=== PATIENT | male | born 1965 | race Caucasian/White ===

== ENCOUNTER → 2024-05-31 09:31 | Outpatient (BNVA) | payer OTHER, SELFPAY | PROVIDERS: Visit Provider Internal Medicine Cardiovascular Disease | DX: I25.10 Atherosclerotic heart disease of native coronary artery without angina pectoris (principal); I25.5 Ischemic cardiomyopathy; I44.5 Left posterior fascicular block; R94.31 Abnormal electrocardiogram [ECG] [EKG] | CPT/HCPCS: 93005; 99202 ==

== ENCOUNTER → 2024-06-14 10:33 | Outpatient (REF) | payer OTHER, SELFPAY ==
--- NOTE | 2024-06-14 10:36 | CA_ITS ---
Transthoracic Echocardiogram Amended Patient (Last, First, Middle): Mohsen Pearce, Gender: Male Date of : 1965 Age: 59 Procedure Date: 06/14/2024 Procedure Type: Transthoracic Echocardiogram Location: OP Height: 165. 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 The visually estimated ejection fraction is between 30-35%. - The apex, basal inferior, apical septum, mid inferoseptal, and mid anteroseptal segments are akinetic. ([place] possibly dyskinetic, difficult to visualize). - No obvious valvular pathology seen on this study. Findings Procedure Information Contrast agent, definity, is being given per protocol without apparent complications. Left Ventricle Normal left ventricular cavity size. The left ventricular systolic function is moderate to severely decreased. The visually estimated ejection fraction is between 30-35%. There is evidence of regional wall motion abnormalities. Evidence suggests grade I (mild) diastolic dysfunction. Mild focal hypertrophy of the basal septum. ([place] possibly dyskinetic, difficult to visualize). Wall Motion Rest Echo Findings The apex, basal inferior, apical septum, mid inferoseptal, and mid anteroseptal segments are akinetic. Right Ventricle Normal right ventricular cavity size. There is low normal right ventricular systolic function. Atria Both atria are normal in size. Aortic Valve There is mild calcification of the aortic valve. There is no aortic valve stenosis. There is no aortic valve regurgitation. Mitral Valve The mitral valve appears normal. There is no mitral valve regurgitation. There is no mitral valve stenosis. Pulmonic Valve The pulmonic valve is likely normal. Tricuspid Valve There is trace tricuspid valve regurgitation. There is no evidence of pulmonary hypertension. Great Vessels The asc aorta is normal in size. Venous The inferior vena cava is normal in size and collapses greater than 50% with inspiration. Pericardium/Pleural There is no evidence of pericardial effusion. Prior Study Comparison No prior study available for comparison. Recommendations, Care & Conclusions No obvious valvular pathology seen on this study. Measurements 2D Linear Measurements IVSd: 1.04 0.6-0.9/0.6-1.0 cm LVIDd: 5.22 3.9-5.3/4.2-5.9 cm LVIDd Index: 2.46 2.4-3.2/2.2-3.1 cm/m2 LVIDs: 2.83 2.0-3.6 cm LVPWd: 1.16 0.7-1.1 cm LA Diam: 3.70 2.7-3.8/3.0-4.0 cm LAIDs Index: 1.75 1.5-2.3 cm/m2 LV Mass: 276.93 67-162/88-224 g LV Mass Index: 130.63 43-95/49-115 g/m2 LVOT Diam: 1.90 3.0+(-)1.3 cm 2D Volumes LA Vol: 25.10 2D Systolic Function EF 4C: 35.60 >55% EF 2C: 36.60 >55% EF BiP: 37.20 >55% Mitral Valve MV Pk E: 0.72 MV PK A: 0.81 MV Decel Time: 250.00 E/A: 0.90 E'Lateral: 7.40 E'Medial: 4.57 E/E' Med: 15.80 E/E' Lat: 9.80 PHT: 73.00 MVA PHT: 3.01 Decel Dickens: 2.90 Aortic Valve AoV Pk Kailash: 1.07 AoV Mn Kailash: 0.82 AoV VTI: 0.21 AoV Pk Grad: 5.00 Aov Mn Grad: 3.00 [place] Cont.VTI: 2.24 LVOT LVOT Pk Kailash: 0.94 LVOT Mn Kailash: 0.63 LVOT VTI: 0.17 LVOT Pk Grad: 4.00 LVOT Mn Grad: 2.00 LVOT Diam: 1.90 LVOT Area: 2.84 Diastolic Function MV Pk E: 0.72 MV Pk A: 0.81 E/A: 0.90 E'Medial: 4.57 E/E' Med: 15.80 E' Laterial: 7.40 E/E' Lat: 9.80 Right Ventricle TAPSE (mm): 18.40 TVS' Kailash: 9.46 Tricuspid Valve TR Pk Kailash: 1.56 TR Pk Grad: 10.00 RA Press: 3.00 RVSP: 13.00 Great Vessels Aorta Sinus of Valsalva: 3.60 2.0-3.5 cm Ao Asc: 3.40 2.1-3.4 cm Pulmonary Valve PV Pk Kailash: 0.87 Peak PV Grad: 3.00 Updated in Other Vendor System with Status of Final Rao Hawkins MD electronically signed on 06/15/2024 11:28:50 AM with status of Final
--- OUTSIDE RECORDS SUMMARY | 2024-06-14 11:12 | XMS_ITS | Clinical Summary ---
Author Organization [facility] Address [address] [place] [address] Care Team Providers Care Retail Support Specialist Name Role Phone Eagle Aguirre PA-C Primary Care Provider Source Comments PLEASE NOTE, if this patient is a minor, it may be UNLAWFUL to discuss sensitive information that is contained in these records (such as FAMILY PLANNING, MENTAL HEALTH or SUBSTANCE ABUSE) with the minor patient's parent or other person without the patient's specific authorization.[facility] Allergies Active Allergy Reactions Criticality Noted Date Comments Levofloxacin Rash Medium 01/30/2021 Itchy rash (not hives) Sulfamethoxazole-Trimethopr im Nausea Only 10/02/2015 Medications PROAIR HFA 90 mcg/actuation inhalerIndication s:Mild intermittent asthma without complication Inhale 2 Puffs into the lungs every 4 to 6 (four to six) hours as needed for shortness of breath or wheezing 18 g 1 2 Active furosemide (LASIX) 40 mg tabletIndications :Heart failure with reduced ejection fraction (HCC-CMS) TAKE 1 TABLET(40 MG) BY MOUTH EVERY DAY 90 Tablet 3 3 Active sacubitriL-valsar licea (ENTRESTO) 49-51 mg tabIndications:He art failure with reduced ejection fraction (HCC-CMS) Take 1 Tablet by mouth daily. 60 Tablet 2 3 Active aspirin [address] tabletIndications :Essential hypertension Take 1 Tablet by mouth 1 time each day 90 Tablet 1 3 Active budesonide-formot Praneeth (SYMBICORT) 160-4.5 mcg/actuation inhalerIndication s:Mild intermittent asthma without complication Inhale 2 Puffs into the lungs 2 (two) times daily 10.2 g 5 3 Active pen needle, diabetic 29 gauge x 1/2 ndleIndications:U ncontrolled type 2 diabetes mellitus with hyperglycemia ([facility]) Use one pen needle daily for insulin injections. 100 Each 11 3 Active acetaminophen (TYLENOL 8 HOUR) 650 mg CR tablet Take 1 Tablet by mouth every 8 (eight) hours as needed for pain 60 Tablet 2 3 Active fluticasone (FLONASE) 50 mcg/actuation nasal sprayIndications: URI with cough and congestion INSTILL 2 SPRAYS BY NASAL ROUTE EVERY DA 16 g 2 3 Active loratadine (CLARITIN) 10 mg tabletIndications :Allergic rhinitis, unspecified seasonality, unspecified trigger Take 1 Tablet by mouth once daily as needed for allergies 90 Tablet 4 Active diphenhydrAMINE (BENADRYL) 50 mg capsuleIndication s:Allergic rhinitis, unspecified seasonality, unspecified trigger Take 1 Capsule by mouth nightly at bedtime as needed for allergies, rhinitis or sleep 90 Capsule 4 Active doxycycline (VIBRAMYCIN) 100 mg capsuleIndication s:Acute bacterial sinusitis Take 1 Capsule by mouth 2 (two) times daily 20 Capsule 4 Active carvediloL (COREG) 25 mg tabletIndications :Heart failure with reduced ejection fraction ([facility]-CMS) TAKE 1 TABLET BY MOUTH TWICE DAILY WITH MEALS 180 Tablet 3 4 Active JANUVIA 100 mg tabletIndications :Uncontrolled type 2 diabetes mellitus with hyperglycemia ([facility]) TAKE 1 TABLET BY MOUTH EVERY DAY 60 Tablet 1 4 Active fenofibrate micronized (LOFIBRA) 134 mg capsuleIndication s:Hypertriglyceri demia TAKE 1 CAPSULE BY MOUTH EVERY DAY WITH BREAKFAST 30 Capsule 3 4 Active atorvastatin (LIPITOR) 80 mg tabletIndications :Dyslipidemia TAKE 1 TABLET BY MOUTH EVERY DAY 30 Tablet 3 5 Active semaglutide (OZEMPIC) 0.25 mg or 0.5 mg (2 mg/3 mL) pen injectorIndicatio ns:Uncontrolled type 2 diabetes mellitus with hyperglycemia ([facility]-CMS) Inject 0.25 mg into the skin once a week 3 mL 5 Active dextromethorphan- guaifenesin (MUCINEX DM) 30-600 mg per 12 hr tabletIndications :PND (post-nasal drip) Take 1 Tablet by mouth 2 (two) times daily for 14 days 28 Tablet 4 025 Discontin ued(Thera py completed /Not needed) glipiZIDE (GLUCOTROL) 5 mg tabletIndications :Uncontrolled type 2 diabetes mellitus with hyperglycemia ([facility]) Take 1 Tablet by mouth 2 (two) times daily before a meal 180 Tablet 1 4 025 Discontin ued(Thera py completed /Not needed) Active Problems Problem Noted Date Diagnosed Date Mild intermittent asthma without complication Arthralgia 04/21/2021 Heart failure with reduced ejection fraction ([facility]) 04/21/2021 Overview (09/17/2021): [place] Card[facility] Dr Torres Hypertriglyceridemia 04/21/2021 S/P lobectomy of lung 04/21/2021 Interstitial lung disease ([facility]) 04/21/2021 Overview (04/21/2021): Based on previous chext x-rays done at [facility] Uncontrolled type 2 diabetes mellitus with hyperglycemia ([facility]) 04/21/2021 NSTEMI (non-ST elevated myocardial infarction) ( [facility]) 04/21/2021 Type 2 diabetes mellitus with microalbuminuria ( [facility]) 10/02/2015 Overview (12/22/2021): On Januvia . 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 Nephrolithiasis 10/02/2015 Overview (10/02/2015): Last episode ~2012, went to [facility] [place] Chronic pain of both shoulders 10/02/2015 Overview (10/02/2015): Pt says that he had calcium deposits. Was following at [facility]. Using Naproxen prn Allergic rhinitis 10/02/2015 Encounters Date Type Department Care Team Description 05/26/2024 9:00 AM EST Office Visit [facility] [id number] [place] [address] Eagle Aguirre PA-C Hypertriglyceridemia (Primary Dx); Uncontrolled type 2 diabetes mellitus with hyperglycemia (HCC-CMS); Immunization due from Last 3 Months Immunizations Name Administration Dates Next Due PNEUMOCOCCAL CONJUGATE PCV 20 (Prevnar) 05/26/19 25 TDAP 07/19/2015,07/19/2015 ZOSTER VACCINE, RECOMBINANT (SHINGRIX) 3,03/02/2022 Social History Tobacco Use Types Packs/Day Years Used Date Smoking Tobacco: Former Cigarettes Smokeless Tobacco: Never Tobacco Cessation:Counseling Given: No Comments:quit when he was 16yo Alcohol Use Standard Drinks/Week Comments No 0 (1 standard drink = 0.6 oz pur e alcohol) Social Connections Answer Date Recorded Connectedness 0 02/02/2023 Financial Resource Strain Answer Date R ecorded Financial Resource Strain 0 2022 Stress Answer Date Recorded Stress 0 02/02/2023 Physical Activity Answer Date Recorded Physical Activity 0 01/25/2021 Food Insecurity Answer Date Recorded Food 0 02/02/2023 Transportation Needs Answer Date Record ed Transportation 0 02/02/2023 Housing Stability Answer Date Recorded Housing 0 02/02/2023 Safety and Environment Answer Date Rajesh rded Safety 0 02/02/2023 Utilities Answer Date Recorded Utilities 0 02/02/2023 Employment Answer Date Recorded Employment 0 01/25/2021 Sex and Gender Information Value Date Recorded Sex Assigned at Male 01/25/2021 8:40 AM PDT Legal Sex Male 1:36 PM PST Gender Identity Male 01/25/2021 8:40 AM PDT Sexual Orientation Straight 01/25/2021 8: 40 AM PDT Last Filed Vital Signs Vital Sign Reading Time Taken Comments Blood Pressure 114/80 05/26/2024 9:02 AM EST Pulse 72 05/26/2024 9:02 AM EST Temperature 36.3 ??C (97.4 ??F) 05/26/2024 9:02 AM ES T Respiratory Rate 16 05/26/2024 9:02 AM EST Oxygen Saturation 97% 08/06/2023 4:31 PM EDT Inhaled Oxygen Concentration - - Weight 96.6 kg (213 lb) 05/26/2024 9:02 AM EST Height 160 cm (5' 3 ) 05/26/2024 9:02 AM EST Body Mass Index 37.73 05/26/2024 9:02 AM EST Plan of Treatment Upcoming Encounters Date Type Department Care Team (Late st Contact Info) Description 07/06/2024 3:20 PM EDT Office Visit [facility] [address] [place] [id number] Rajendra Eaton, PharmD [address] [place] [address] Health Maintenance Due Date Last Done Comments Dental Examination [address] CT Colonography 02/05/2009 Colonoscopy 02/05/2009 Fecal DNA 02/05/2009 Flexible Sigmoidoscopy 02/05/2009 Diabetes Microalbumin (w/Creatinine) 01/30/2022 01/30/2021 Medicare Annual Wellness Visit 03/02/2023 03/02/2022, 04/21/2021 Colorectal Cancer Screening 03/06/2023 FIT/gFOBT 03/06/2023 03/06/2022 [id number] ( season) 2023 08/14/2020, 07/22/2020 Imm-Influenza (#1) 2023 Alcohol and Drug Screen 04/26/2024 02/03/20 23, 06/05/2021, 04/21/2021, Additional history exists Depression Annual Screen 04/26/2024 02/02/2023 Diabetes HbA1c 06/28/2024 03/30/2024, 12/0 08/2023, 06/25/2023, Additional history exists Retinopathy Screening 07/29/2024 07/30/2023 Tobacco Screening 08/24/2024 08/25/2023, 03/02/2022 Lipid Screening 03/30/2025 03/30/2024, 01/24, 12/24/2021, Additional history exists Serum Creatinine 03/30/2025 03/30/2024, 02/2023, 12/24/2021, Additional history exists Imm-DTaP/Tdap/Td (3 - Td or Tdap) 07/18/2025 07/19/2015, 07/19/2015 Imm-Zoster, Recombinant Completed 07/23/2022, 03/02 Imm-Pneumococcal Completed 05/26/2024 Diabetes Foot Exam Discontinued HIV Screening Discontinued Hepatitis C Screening Discontinued Imm-Hepatitis B Aged Out No longer el igible based on patient's age to complete this topic Procedures Procedure Name Priority Date/Time Associated Diagnosis Comments REFERRAL SCANNED DOCUMENT 05/01/2024 3:00 AM EST EYE EXAM 07/30/2023 3:00 AM EDT HGBA1C W/MPG Routine 06/25/2023 2:14 PM EST Uncontrolled type 2 diabetes mellitus with hyperglycemia (HCC-CMS) COMPREHENSIVE METABOLIC PANEL Routine 02/03/2023 11:59 AM EDT Heart failure with reduced ejection fraction (HCC-CMS) Uncontrolled type 2 diabetes mellitus with hyperglycemia (HCC-CMS) Type 2 diabetes mellitus with microalbuminuria, unspecified whether terminal makeup operator insulin use Dyslipidemia Morbid obesity (HCC-CMS) Hypertriglyceridemia 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, without long-term current use of insulin LIPID PANEL Routine 02/03/2023 11:59 AM EDT Heart failure with reduced ejection fraction (HCC-CMS) Uncontrolled type 2 diabetes mellitus with hyperglycemia (HCC-CMS) Type 2 diabetes mellitus with microalbuminuria, unspecified whether fpc insulin use Dyslipidemia Morbid obesity (HCC-CMS) Hypertriglyceridemia 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, without long-term current use of insulin FECAL GLOBIN BY IMMUNOCHEMISTRY (FIT) Routine 03/06/2022 1:17 PM EST Encounter for colorectal cancer screening MICROALBUMIN/CREATININE RATIO, URINE, RANDOM Routine 01/30/2021 11:22 AM EDT Type 2 diabetes mellitus with microalbuminuria, without long-term current use of insulin ([facility]) from Last 3 Months or Most Recently Relevant to Health Maintenance Results * REFERRAL SCANNED DOCUMENT (05/01/2024 3:00 AM EST) 05/01/2024 3:00 AM EST [facility] Provider Default SCAN REFERRAL Final Resu lt * EYE EXAM (07/30/2023 3:00 AM EDT) 07/30/2023 3:00 AM EDT Greer Enriquez [employer] INSTALLER OTHER Final Result * (ABNORMAL) LIPID PANEL (02/03/2023 11:59 AM EDT) Pathologist [facility] CHOLESTEROL, TOTAL 186 <200 mg/dL [employer] HDL CHOLESTEROL 31(L) > OR = 40 mg/dL [employer] TRIGLYCERIDES 429(H) <150 mg/dL [employer] Comment: If a non-fasting specimen was collected, consider repeat triglyceride testing on a fasting specimen if clinically indicated. Rachel et al. J. of Clin. Lipidol. 2015;9:129-169. LDL-CHOLESTEROL See Note [email or web address] Comment: LDL cholesterol not calculated. Triglyceride levels greater than 400 mg/dL invalidate calculated LDL results. Reference range: <100 Desirable range <100 mg/dL for primary prevention; ?? <70 mg/dL for patients with CHD or diabetic patients with > or = 2 CHD risk factors. LDL-C is now calculated using the Frank calculation, which is a validated novel method providing better accuracy than the Friedewald equation in the estimation of LDL-C. Nelson JACINTO et al. LIZET. 2013;310(19): 6311-4369 (http://education.[employer]/faq/UQE821) CHOL/HDLC RATIO 6.0(H) <5.0 (calc) [employer] NON-HDL CHOLESTEROL 155(H) <130 mg/dL (calc) [employer] Comment: For patients with diabetes plus 1 major ASCVD risk factor, treating to a non-HDL-C goal of <100 mg/dL (LDL-C of <70 mg/dL) is considered a therapeutic option. Blood Blood / Unknown 02/03/2023 1 1:59 AM EDT 02/03/2023 11:59 AM EDT [facility] - BLOOD DRAW Final Result [employer] [address] [address], [employer] [facility] [address] [place] [address] * (ABNORMAL) COMPREHENSIVE METABOLIC PANEL (02/03/2023 11:59 AM EDT) GLUCOSE 383(H) 65 - 99 mg/dL [employer] Comment: ?Fasting reference interval For someone without known diabetes, a glucose value >125 mg/dL indicates that they may have diabetes and this should be confirmed with a follow-up test. UREA NITROGEN (BUN) 20 7 - 25 mg/dL [employer] CREATININE (blood) 1.30 0.70 - 1.30 mg/dL [employer] EGFR 64 > OR = 60 mL/min/1. 73m2 [employer] BUN/CREATININE RATIO SEE NOTE: [employer] Comment: ?? Not Reported: BUN and Creatinine are within ?? reference range. ? SODIUM 133(L) 135 - 146 mmol/L [employer] POTASSIUM 4.5 3.5 - 5.3 mmol/L [employer] CHLORIDE 97(L) 98 - 110 mmol/L [employer] CARBON DIOXIDE 26 20 - 32 mmol/L [employer] CALCIUM 8.9 8.6 - 10.3 mg/dL [employer] PROTEIN, TOTAL 6.9 6.1 - 8.1 g/dL [employer] ALBUMIN 4.0 3.6 - 5.1 g/dL [employer] GLOBULIN 2.9 1.9 - 3.7 g/dL (calc) [employer] ALBUMIN/GLOBULI N RATIO 1.4 1.0 - 2.5 (calc) [facility] BILIRUBIN, TOTAL 0.8 0.2 - 1.2 mg/dL [facility] ALKALINE PHOSPHATASE 50 35 - 144 U/L [facility] AST 16 10 - 35 U/L [facility] ALT 25 9 - 46 U/L [facility] Blood Blood / Unknown 02/03/2023 1 1:59 AM EDT 02/03/2023 11:59 AM EDT [facility] - BLOOD DRAW Edited Result - Final Performing Organization Address [facility] de Phone Number [employer] [facility] [address] [address], [employer] [address] [address] * FECAL GLOBIN BY IMMUNOCHEMISTRY (FIT) (03/06/2022 1:17 PM EST) FECAL GLOBIN BY IMMUNOCHEMISTRY See Note [employer] [facility] Comment: ??FECAL GLOBIN BY IMMUNOCHEMISTRY ?Micro Number: ?[id number] ??Test Status: ? Final ??Specimen Source: ?? Insure (tm) fobt test card ??Specimen Quality: ??Adequate ??Fecal Globin: ?Not Detected ??Comment: ? Test results may be invalid as no date of ? collection was provided. Specimens are stable ? for 14 days. NO COLLECTION DATE RECEIVED. WE HAVE USED THE DATE THE SPECIMEN WAS RECEIVED BY THIS LABORATORY THE COLLECTION DATE. IF THIS IS INCORRECT, PLEASE CONTACT CLIENT SERVICES. PHONE NUMBER: Stool Stool specimen / Unknown 03/05/2022 11:56 PM EST us [facility] - NO BLOOD DRAW Final Resu lt Performing Organization Address [facility] Co de Phone Number [employer] [address] [address], [email or web address] [facility] [address] [address] * MICROALBUMIN/CREATININE RATIO, URINE, RANDOM (01/30/2021 11:22 AM EDT) CREATININE, RANDOM URINE 91 20 - 320 mg/dL [employer] MICROALBUMIN 2.5 mg/dL [employer] [facility] Comment: Reference Range Not established MICROALBUMIN/CREA TININE RATIO, RANDOM URINE 27 <30 mcg/mg creat [employer] [facility] Comment: The ADA defines abnormalities in albumin excretion as follows: Albuminuria Category ?Result (mcg/mg creatinine) Normal to Mildly increased ?? <30 Moderately increased ? 30-299 Severely increased ? > OR = 300 The ADA recommends that at least two of three specimens collected within a 3-6 month period be abnormal before considering a patient to be within a diagnostic category. Urine Urine specimen / Unknown 01/30/2021 11:22 AM EDT 01/30/2021 11:22 AM EDT Greer Enriquez [facility] - NO BLOOD DRAW Final Result [employer] [address] [address], [email or web address] [facility] [address] [address] from Last 3 Months or Most Recently Relevant to Health Maintenance Insurance [employer] NET DENTAL Member Subscriber Plan / Payer (Ef fective 2023-Present) Name:Mohsen Pearce Relation to Subscriber:Self Name:Mohsen Pearce Payer ID:[id number] Group ID:Not on file Type:Indemnifrancis Address: [facility] [address] [address] Care Teams Retail Support Specialist Relationship Specialty Start Date End Date Eagle Aguirre PA-C [address] [place] [address] PCP - General FAMILY MEDICINE [place] 03/31/24
--- OUTSIDE RECORDS SUMMARY | 2024-06-14 11:12 | XMS_ITS | Clinical Summary ---
Author Organization [address] Address [address] [place] [address] Phone Care Team Providers Care Spike Maker Name Role Phone Shilo Vasquez MD Primary Care Provider [phone] Surgical History Surgery Date Site/Laterality Comments OTHER SURGICAL HISTORY 1985 PROCEDURE: ID BRONCHOSCOPY W/TRANSBRONCHIAL LUNG BX 1 LOBE; COMMENT: granuloma Medical History Medical History Date Comments Chronic interstitial lung di sease ([facility]) DX:Chronic interstitial lung disease ([facility]); COMMENT: Heart failure w/ reduced EF. Joint pain DX:Joint pain S/P partial lobectomy of lung DX :S/P partial lobectomy of lung; COMMENT: partial left Obesity DX:Obesity Bronchitis DX:Bronchitis Essential hypertension DX:Essent ial hypertension Hyperlipidemia DX:Hyperlipidemi a Family history of cardiovasc ular disease DX:Family history of cardiov ascular disease Type 2 diabetes mellitus wit hout complication ([facility]) 09/30/2020 DX:Type 2 diabetes mellitus without complication ([facility]) Carotid artery occlusion 01/03/2021 DX:Breaux tid artery occlusion; COMMENT: Chronic, R carotid. ST elevation myocardial infa rction involving left anterior descending (LAD) coronary artery ([facility]) 09/30/2020 DX:ST elevation myocar dial infarction involving left anterior descending (LAD) coronary artery ([facility]) Family History Medical History Relation Name Comments Coronary artery disease Father Heart failure Father COPD Mother Other: copd Mother Relation Name Status Comments Brother 1 Alive A&W Brother 2 Alive A&W Daughter 1 Alive A&W Daughter 2 Alive A&W Daughter 3 Alive A&w Daughter 4 Alive A&W Daughter 5 Alive A&W Father (Age 56) Maternal Grandfather Maternal Grandmother Mother (Age 65) COPD Paternal Grandfather Paternal Grandmother Sister 1 Alive A&W Sister 2 Alive A&W Social History Tobacco Use Types Packs/Day Years Used Date Smoking Tobacco: Former Cigarettes Q uit: 04/25/1983 Smokeless Tobacco: Never Alcohol Use Standard Drinks/Week Comments Not Currently 0 (1 standard drink = 0.6 oz pur e alcohol) Sex and Gender Information Value Date Recorded Sex Assigned at Not on file Legal Sex Male 3:21 PM EST Gender Identity Not on file Sexual Orientation Not on file Obstetrics History Last Filed Vital Signs Vital Sign Reading Time Taken Comments Blood Pressure 104/78 12/09/2021 1:00 PM EDT Sit ting L Arm Pulse 95 11/03/2021 8:33 AM EDT Temperature - - Respiratory Rate - - Oxygen Saturation - - Inhaled Oxygen Concentration - - Weight 101 kg (222 lb) 12/09/2021 1:00 PM EDT Height 162.6 cm (5' 4 ) 12/09/2021 1:00 PM EDT Body Mass Index 38.11 12/09/2021 1:00 PM EDT Plan of Treatment Health Maintenance Due Date Last Done Comments Diabetes: Annual Foot Exam 02/05/1974 Diabetes: Annual Retina Eye Exam 02/05/1974 Pneumococcal Vaccine: 50+ Years (1 of 2 - PCV) 02/05/1983 Pneumococcal Vaccine: Pediatrics (0 to 5 Years) and At-Risk Patients (6 to 64 Years) (1 of 2 - PCV) 02/05/1983 HIV Screening 04/04/2022 Hepatitis C Screening 04/04/2022 Social Influencers of Health Screening 04/04/2022 Colorectal Cancer Screening: Stool Based Tests (FOBT/FIT) 03/06/2023 03/06/2022 COVID-19 Vaccine ( season) 2023 08/14/2020, 07/22/2020 Influenza Vaccine (#1) 2023 Depression Screening 02/03/2024 02/02/2023 RSV Immunization Patients 60+ Years Old (1 - Risk 60-74 years 1-dose series) 2024 Diabetes: Blood Sugar Control Test (HGBA1C) 09/28/2024 03/30/2024, 06/25/2023 Diabetes: Annual Urine Albumin-Creatinine Ratio (uACR) 03/30/2025 03/30/2024, 01/30/2021 Diabetes: Annual GFR (Glomerular Filtration Rate) 03/30/2025 03/30/2024, 02/03/2023 Hypertension/CHF/CAD Annual BMP Blood Test 03/30/2025 03/30/2024, 02/03/2023 DTaP,Tdap,and Td Vaccines (2 - Td or Tdap) 07/18/2025 07/19/2015 Cholesterol Screening (Lipid Panel) 03/30/2029 03/30/2024, 02/03/2023, 02/03/2023, Additional history exists Zoster Vaccines Completed 07/23/2022, 03/02/2022 HIB Vaccines Aged Out No longer eligi ble based on patient's age to complete this topic HPV Vaccines Aged Out No longer eligi ble based on patient's age to complete this topic Hepatitis A Vaccines Aged Out No long er eligible based on patient's age to complete this topic Hepatitis B Vaccines Aged Out No long er eligible based on patient's age to complete this topic IPV Vaccines Aged Out No longer eligi ble based on patient's age to complete this topic MMR Vaccines Aged Out No longer eligi ble based on patient's age to complete this topic Meningococcal ACWY Vaccine Aged Out N o longer eligible based on patient's age to complete this topic Meningococcal B Vacine Aged Out No lo nger eligible based on patient's age to complete this topic RSV Immunization Patients Under 20 months Aged Out No longer eligible based on patient's age to complete this topic Varicella Vaccines Aged Out No longer eligible based on patient's age to complete this topic Procedures Procedure Name Priority Date/Time Associated Diagnosis Comments MICROALBUMIN CREATININE URINE RATIO Routine 03/30/2024 11:11 AM EST Hyperlipidemia Essential hypertension, benign Coronary atherosclerosis of [place] coronary artery Heart failure, systolic ([facility]) Referral of patient without examination or treatment CBC WITH AUTO DIFFERENTIAL Routine 03/30/2024 11:05 AM EST Hyperlipidemia Essential hypertension, benign Coronary atherosclerosis of [place] coronary artery Heart failure, systolic ([facility]) Referral of patient without examination or treatment THYROID STIMULATING HORMONE WITH REFLEX TO FREE T4 AND FREE T3 Routine 03/30/2024 11:05 AM EST Hyperlipidemia Essential hypertension, benign Coronary atherosclerosis of [place] coronary artery Heart failure, systolic ([facility]) Referral of patient without examination or treatment LIPID PANEL WITH REFLEX TO DIRECT LDL Routine 03/30/2024 11:05 AM EST Hyperlipidemia Essential hypertension, benign Coronary atherosclerosis of [place] coronary artery Heart failure, systolic (CMS/HCC) Referral of patient without examination or treatment HEMOGLOBIN A1C Routine 03/30/2024 11:05 AM EST Hyperlipidemia Essential hypertension, benign Coronary atherosclerosis of [place] coronary artery Heart failure, systolic (CMS/HCC) Referral of patient without examination or treatment COMPREHENSIVE METABOLIC PANEL Routine 03/30/2024 11:05 AM EST Hyperlipidemia Essential hypertension, benign Coronary atherosclerosis of [place] coronary artery Heart failure, systolic (CMS/HCC) Referral of patient without examination or treatment CBC AND DIFFERENTIAL Routine 03/30/2024 11:05 AM EST Hyperlipidemia Essential hypertension, benign Coronary atherosclerosis of [place] coronary artery Heart failure, systolic (CMS/HCC) Referral of patient without examination or treatment from Last 3 Months Results * (ABNORMAL) Microalbumin creatinine urine ratio (03/30/2024 11:11 AM EST) Creatinine, Urine 55.0 mg/dL LAB CHEMISTRY METHOD 03/30/2024 12:19 PM EST [facility] Microalb, Ur 21.5 0.0 - 29.0 mg/L LAB CHEMISTRY METHOD 03/30/2024 12:19 PM EST [facility] Microalb/Creat Ratio 39(H) <30 mg/g creat LAB CHEMISTRY METHOD 03/30/2024 12:19 PM EST [facility] Urine Urine specimen obtained by clean catch procedure / Unknown Non-blood Collection / Unknown 03/30/2024 11:11 AM EST 03/30/2024 11:19 AM EST us Susan Mejia NP LAB URINE ORDERABLE S Final Result [facility] [address] [place] [address], [place] [phone] * Thyroid stimulating hormone with reflex to free t4 and free t3 (03/30/2024 11:05 AM EST) TSH 1.27 0.40 - 4.00 mcIU/mL LAB CHEMISTRY METHOD 03/30/2024 12:20 PM [facility] Blood Venous blood specimen / Unknown Venipuncture / Unknown 03/30/2024 11:05 AM EST 03/30/2024 11:20 AM EST us Susan Mejia [employer]KE [employer] NOTCHER LAB BLOOD ORDERABLE S Final Result [facility] [address] [place] [address], [place] [phone] * (ABNORMAL) Lipid panel with reflex to direct LDL (03/30/2024 11:05 AM EST) Cholesterol 196 0 - 200 mg/dL LAB CHEMISTRY METHOD 03/30/2024 12:12 PM [facility] Triglycerides 435(H) 0 - 150 mg/dL LAB CHEMISTRY METHOD 03/30/2024 12:12 PM [facility] HDL 33(L) >=40 mg/dL LAB CHEMISTRY METHOD 03/30/2024 12:12 PM [facility] LDL Calculated 76 0 - 100 mg/dL LAB CHEMISTRY METHOD 03/30/2024 12:12 PM [facility] Comment:Unable to calculate when triglycerides >400 mg/dL. VLDL Cholesterol Norbert 87 mg/dL LAB CHEMISTRY METHOD 03/30/2024 12:12 PM [facility] Comment:Unable to calculate when triglycerides >400 mg/dL. Non HDL Chol. (LDL+VLDL) 163(H) <145 mg/dL LAB CHEMISTRY METHOD 03/30/2024 12:12 PM [facility] Comment:Unable to calculate when triglycerides >400 mg/dL. Chol/HDL Ratio 5.9(H) 0.0 - 4.4 LAB CHEMISTRY METHOD 03/30/2024 12:12 PM EST [facility] Blood Venous blood specimen / Unknown Venipuncture / Unknown 03/30/2024 11:05 AM EST 03/30/2024 11:20 AM EST us Susan Mejia [employer] NOT[employer]ER LAB BLOOD ORDERABLE S Final Result [facility] [address] [place] [address], [place] [phone] * (ABNORMAL) CBC auto differential (03/30/2024 11:05 AM EST) WBC 7.6 4.8 - 10.8 K/mcL LAB HEMETOLOGY METHOD 03/30/2024 11:42 AM [facility] RBC 6.00(H) 4.50 - 5.50 M/mcL LAB HEMETOLOGY METHOD 03/30/2024 11:42 AM [facility] Hemoglobin 17.5 13.5 - 17.5 g/dL LAB HEMETOLOGY METHOD 03/30/2024 11:42 AM [facility] Hematocrit 51.2 42.0 - 54.0 % LAB HEMETOLOGY METHOD 03/30/2024 11:42 AM [facility] MCV 86.1 79.0 - 98.0 FL LAB HEMETOLOGY METHOD 03/30/2024 11:42 AM [facility] MCH 29.4 27.0 - 32.0 pcg LAB HEMETOLOGY METHOD 03/30/2024 11:42 AM [facility] MCHC 34.2 32.0 - 37.0 g/dL LAB HEMETOLOGY METHOD 03/30/2024 11:42 AM [facility] RDW 11.4 11.0 - 15.0 % LAB HEMETOLOGY METHOD 03/30/2024 11:42 AM [facility] Platelets 154 130 - 400 K/mcL LAB HEMETOLOGY METHOD 03/30/2024 11:42 AM [facility] MPV 11.1(H) 7.0 - 11.0 FL LAB HEMETOLOGY METHOD 03/30/2024 11:42 AM [facility] NRBC 0.0 <1.0 % LAB HEMETOLOGY METHOD 03/30/2024 11:42 AM [facility] NRBC Absolute 0.00 <0.10 K/mcL LAB HEMETOLOGY METHOD 03/30/2024 11:42 AM [facility] Neutrophils Relative 67.2 % LAB HEMETOLOGY METHOD 03/30/2024 11:42 AM [facility] Lymphocytes Relative 20.9 % LAB HEMETOLOGY METHOD 03/30/2024 11:42 AM [facility] Monocytes Relative 9.9 % LAB HEMETOLOGY METHOD 03/30/2024 11:42 AM [facility] Eosinophils Relative 1.2 % LAB HEMETOLOGY METHOD 03/30/2024 11:42 AM [facility] Basophils Relative 0.4 % LAB HEMETOLOGY METHOD 03/30/2024 11:42 AM [facility] Immature Granulocytes Relative 0.4 % LAB HEMETOLOGY METHOD 03/30/2024 11:42 AM [facility] Neutrophils Absolute 5.08 1.50 - 7.00 K/mcL LAB HEMETOLOGY METHOD 03/30/2024 11:42 AM [facility] Lymphocytes Absolute 1.58 1.00 - 5.00 K/mcL LAB HEMETOLOGY METHOD 03/30/2024 11:42 AM [facility] Monocytes Absolute 0.75 0.20 - 1.00 K/mcL LAB HEMETOLOGY METHOD 03/30/2024 11:42 AM [facility] Eosinophils Absolute 0.09 0.00 - 0.50 K/[facility] LAB HEMETOLOGY METHOD 03/30/2024 11:42 AM EST [facility] Basophils Absolute 0.03 0.00 - 0.20 K/[facility] LAB HEMETOLOGY METHOD 03/30/2024 11:42 AM EST [facility] Immature Granulocytes Absolute 0.03 0.00 - 0.03 K/[facility] HEMETOLOGY METHOD 03/30/2024 11:42 AM EST [facility] Blood Venous blood specimen / Unknown Venipuncture / Unknown 03/30/2024 11:05 AM EST 03/30/2024 11:20 AM EST us Susan Mejia [employer] LAB BLOOD ORDERABLE S Final Result Performing Organization Address City/[facility]/ZIP Co de Phone Number [facility] [address] [place] [address], [place] [phone] * (ABNORMAL) Hemoglobin A1c (03/30/2024 11:05 AM EST) Hemoglobin A1C 10.1(H) <6.5 % LAB CHEMISTRY METHOD 03/30/2024 1:54 PM EST [facility] Mean Bld Glu Estim. 243 mg/dL LAB CHEMISTRY METHOD 03/30/2024 1:54 PM EST [facility] Blood Venous blood specimen / Unknown Venipuncture / Unknown 03/30/2024 11:05 AM EST 03/30/2024 11:20 AM EST us Susan Mejia [employer] LAB BLOOD ORDERABLE S Final Result [facility] [address] [place] [address], [place] [phone] * (ABNORMAL) Comprehensive metabolic panel (03/30/2024 11:05 AM EST) Sodium 135 133 - 145 mmol/L LAB CHEMISTRY METHOD 03/30/2024 12:12 PM [facility] Potassium 4.2 3.5 - 5.5 mmol/L LAB CHEMISTRY METHOD 03/30/2024 12:12 PM [facility] Chloride 103 96 - 110 mmol/L LAB CHEMISTRY METHOD 03/30/2024 12:12 PM [facility] CO2 27 21 - 32 mmol/L LAB CHEMISTRY METHOD 03/30/2024 12:12 PM [facility] Anion Gap 5 3 - 11 LAB CHEMISTRY METHOD 03/30/2024 12:12 PM [facility] Glucose 361(H) 70 - 100 mg/dL LAB CHEMISTRY METHOD 03/30/2024 12:12 PM [facility] BUN 18 5 - 25 mg/dL LAB CHEMISTRY METHOD 03/30/2024 12:12 PM [facility] Creatinine 1.13 0.70 - 1.30 mg/dL LAB CHEMISTRY METHOD 03/30/2024 12:12 PM [facility] eGFR 74 >=60 mL/min/1. 73m2 LAB CHEMISTRY METHOD 03/30/2024 12:12 PM [facility] Comment:Calculation based on the??Chronic Kidney Disease Epidemiology Collaboration (CKD-EPI) equation refit??without adjustment for race. BUN/Creatinine Ratio 15.9 LAB CHEMISTRY METHOD 03/30/2024 12:12 PM [facility] Calcium 9.2 8.5 - 10.5 mg/dL LAB CHEMISTRY METHOD 03/30/2024 12:12 PM [facility] AST (SGOT) 22 10 - 42 unit/L LAB CHEMISTRY METHOD 03/30/2024 12:12 PM [facility] ALT (SGPT) 49 10 - 60 unit/L LAB CHEMISTRY METHOD 03/30/2024 12:12 PM [facility] Alkaline Phosphatase 69 42 - 121 unit/L LAB CHEMISTRY METHOD 03/30/2024 12:12 PM EST [facility] Total Protein 7.2 6.0 - 8.0 g/dL LAB CHEMISTRY METHOD 03/30/2024 12:12 PM EST [facility] Albumin 3.9 3.2 - 5.0 g/dL LAB CHEMISTRY METHOD 03/30/2024 12:12 PM EST [facility] Total Bilirubin 0.8 0.0 - 1.4 mg/dL LAB CHEMISTRY METHOD 03/30/2024 12:12 PM EST [facility] Blood Venous blood specimen / Unknown Venipuncture / Unknown 03/30/2024 11:05 AM EST 03/30/2024 11:20 AM EST us Susan Mejia [employer] LAB BLOOD ORDERABLE S Final Result [facility] [address] [place] [address], [place] [phone] from Last 3 Months Insurance Member Subscriber Plan / Payer (Ef fective 2023-Present) Name:Mohsen Pearce Relation to Subscriber:Spouse Name:MOHSEN PEARCE Date of :1964 Address: [address] [place] [address] Payer ID:[id number] Group ID:[id number] Type:Not on file Address: [place] [address] [place] [phone] [facility] MEDICARE Member Subscriber Plan / Payer (Ef fective 2023-Present) Name:Mohsen Pearce Relation to Subscriber:Self Name:Mohsen Pearce Payer ID:[id number] Group ID:[id number] Type:Not on file Address: [address] [place] [id number] Care Teams Spike Maker Relationship Specialty Start Date End Date Shilo Vasquez MD [address] [place] [address] PCP - General Internal Medicine 08/24/21
--- OUTSIDE RECORDS SUMMARY | 2024-06-14 11:12 | XMS_ITS | Encounter Summary ---
Author Organization [facility] Address [address] [place] [address] Care Team Providers Care Train Starter Name Role Phone Eagle Aguirre PA-C Primary Care Provider + [phone] Reason for Referral * Diabetes (Routine) - Authorized Specialty Diagnoses / Procedures Referred By Erica armenta Referred To Contact Clinical Pharmacology / Family Practice Diagnoses Uncontrolled type 2 diabetes mellitus with hyperglycemia ([facility] Eagle Aguirre PA-C [address] [place] [address] Phone: tel: fax: Rajendra Eaton, PharmD [address] [place] [address] Phone: tel: fax: Referral ID Status Reason Start Date Expiration Date Visits Requested Visits Authorized [id number] Authorized Continuity of Care 05/26/2024 05/26/2025 20 20 Question Answer Insulin Dependent? No Comments Doesn't want to take metformin or glipizide. Does take januvia. Reason for Visit * Reason Comments Follow Up No concern Encounter Details Date Type Department Care Team (Latest Contact Info) Description 05/26/2024 9:00 AM EST Office Visit [facility] [address] [place] [address] Eagle Aguirre PA-C [address] [place] [address] Hypertriglyceridemia (Primary Dx); Uncontrolled type 2 diabetes mellitus with hyperglycemia (HCC-CMS); Immunization due Social History Tobacco Use Types Packs/Day Years [...] Orientation Straight 01/25/2021 8: 40 AM PDT documented as of this encounter Last Filed Vital Signs Vital Sign Reading Time Taken Comments Blood Pressure 114/80 05/26/2024 9:02 AM EST Pulse 72 05/26/2024 9:02 AM EST Temperature 36.3 ??C (97.4 ??F) 05/26/2024 9:02 AM ES T Respiratory Rate 16 05/26/2024 9:02 AM EST Oxygen Saturation - - Inhaled Oxygen Concentration - - Weight 96.6 kg (213 lb) 05/26/2024 9:02 AM EST Height 160 cm (5' 3 ) 05/26/2024 9:02 AM EST Body Mass Index 37.73 05/26/2024 9:02 AM EST documented in this encounter Miscellaneous Notes * Patient Instructions - Eagle Aguirre PA-C - 05/26/2024 9:47 AM EST If you are not able to keep your appointment please call 24-48 hours before your appointment to cancel or reschedule. documented in this encounter Plan of Treatment Upcoming Encounters Date Type Department Care Team (Late st Contact Info) Description 07/06/2024 3:20 PM EDT Office Visit [facility] [address] [place] [address] Rajendra Eaton, ClementinaD [address] [place] [address] Scheduled Referrals Name Type Priority Associated Diagnoses Orde r Schedule REFERRAL TO [facility]ETES CLINIC Referral Routine Uncontrolled type 2 diabetes mellitus with hyperglycemia (HCC-CMS) Ordered: 05/26/2024 documented as of this encounter Visit Diagnoses Diagnosis Hypertriglyceridemia- Primary Pure hyperglyceridemia Uncontrolled type 2 diabetes mellitus with hyperglycemia (HCC-CMS) Immunization due Need for prophylactic vaccination and inoculation against unspecified single disease documented in this encounter Additional Health Concerns Assessment Noted Time PHQ-9 Depression Total Score: 0 02/03/20 23 5:02 PM PDT documented as of this encounter Care Teams Train Starter Relationship Specialty Start Date End Date Eagle Aguirre PA-C [address] [place] [address] PCP - General FAMILY MEDICINEJAMES 03/31/24 documented as of this encounter
== END ==
LOC: HO.CARD 10:33
PROVIDERS: Visit Provider Internal Medicine Cardiovascular Disease
DX: I25.5 Ischemic cardiomyopathy (principal)
CPT/HCPCS: 93306; Q9957

== ENCOUNTER → 2024-06-14 10:36 | Outpatient (BNV) | payer OTHER, SELFPAY | PROVIDERS: Visit Provider Internal Medicine | DX: I42.2 Other hypertrophic cardiomyopathy (principal); I35.8 Other nonrheumatic aortic valve disorders | CPT/HCPCS: 93306 ==

== ENCOUNTER 2024-06-19 19:31 | Emergency (ER) | payer OTHER, SELFPAY ==
--- NOTE | ~2024-06-19 | XR_ITS ---
CLINICAL HISTORY: cough, fever 2 view chest x-ray Comparison: None available Findings: Bilateral pulmonary opacities with airspace disease most pronounced in the right infrahilar region concerning for pneumonitis/pneumonia. No pneumothorax or pleural effusion. Cardiac silhouette and mediastinal contours are at the upper limits of normal for technique. Degenerative changes include imaged shoulders and AC joints. Likely calcific tendinitis adjacent to right humerus. IMPRESSION: Airspace disease most pronounced in the right infrahilar region concerning for pneumonitis and/or pneumonia. Recommend attention on follow-up to ensure resolution. This document has been electronically signed by: Henry Gupta MD on 06/19/2024 21:09:25
[2024-06-19 20:28] VITALS: BP 127/83; PULSE 102; RESP 20; TEMP 37.4; O2SAT 96; BMI 34.4
--- NOTE | 2024-06-19 20:30 | ED.GENADULT ---
HPI - General Adult General Chief complaint: Dyspnea Stated complaint: ?bronchitis Time Seen by Provider: 06/20/24 00:24 Source: patient Limitations: no limitations History of Present Illness ED Provider: Sahara Sexton PA-C HPI narrative: 59-year-old male with a history of hypertension, hyperlipidemia, diabetes, coronary artery disease, ischemic cardiomyopathy, presents with cough and cold symptoms x1 week. Associated nasal congestion with facial pain, expelling blood-tinged mucus. Patient also complains of sore throat secondary to his postnasal drip. Patient was experiencing fullness within both ears with the ringing at times. Patient was also had a persisting dry cough. Associated low-grade fevers at home. Patient saw his primary care, and was placed on 3 days' worth of azithromycin . Related Data Home Medications ?Medication ?Instructions ?Recorded ?Confirmed atorvastatin 80 mg tablet 80 mg PO DAILY 05/31/24 05/31/24 carvedilol 25 mg tablet 25 mg PO BID 05/31/24 05/31/24 fluticasone propionate 50 1 spray intranasal DAILY 05/31/24 05/31/24 mcg/actuation nasal spray,suspension ipratropium bromide 21 mcg (0.03 2 spray intranasal BID 05/31/24 05/31/24 %) nasal spray sacubitril 49 mg-valsartan 51 mg 1 tab PO BID 05/31/24 05/31/24 tablet (Entresto) sitagliptin phosphate 100 mg 100 mg PO DAILY 05/31/24 05/31/24 tablet (Januvia) Previous Rx's ?Medication ?Instructions ?Recorded icosapent ethyl 1 gram capsule 2 g (2 x 1 gram) PO BID #120 caps 05/31/24 (Vascepa) amoxicillin 875 mg-potassium 1 tab PO BID #19 tabs 06/20/24 clavulanate 125 mg tablet doxycycline hyclate 100 mg capsule 100 mg PO BID #19 caps 06/20/24 Allergies Allergy/AdvReac Type Severity Reaction Status Date / Time levaquin Allergy Severe rash Uncoded 06/19/24 20:30 Review of Systems Review of Systems: Yes all other systems are reviewed and are negative Constitutional: Constitutional: Denies fatigue, Reports fever(s) and Reports malaise ENT: Reports nasal congestion, Reports post nasal drip, Reports sinus pain and Reports sore throat Cardiovascular: Cardiovascular: Denies chest pain and Denies dyspnea Respiratory: Respiratory: Reports chest congestion, Reports cough, Denies dyspnea and Denies wheezing Gastrointestinal: Gastrointestinal: Denies diarrhea, Denies nausea and Denies vomiting Endocrine: Endocrine: Denies fatigue Allergic/Immunologic: Allergic/Immunologic: Denies wheezing PMF Past Medical History Attestation statement: The following information was validated with the patient. Medical History ST elevation myocardial infarction (STEMI) of anterior wall Ischemic cardiomyopathy CAD (coronary artery disease) Surgical History Stented coronary artery Family History Family History Father Heart problem Mother COPD (chronic obstructive pulmonary disease) Social History Social History Alcohol intake: never Patient Tobacco Use Status: Never used Tobacco Smoked in Last 30 Days: No Use of substances other than those prescribed or required for medical reasons: No Advance Directives: No Advance Directives Information Provided: No Do you have a plan to hurt others: No Plan Physical Exam ED Vital Signs: Vital Signs - 24 hr 06/19/24 20:28 06/19/24 23:53 Temperature 99.3 F 99.0 F Pulse Rate 102 H 102 H Respiratory Rate 20 20 Blood Pressure 127/83 116/80 Pulse Oximetry 96 96 Oxygen Delivery Method Room Air Room Air BMI result Body Mass Index 34.4 Const Other: Alert Orientation/consciousness: patient oriented x3 HENMT Other: Oropharynx is erythematous, uvula midline, no exudate. Bilateral TMs are dull, both external ear canals are erythematous, no tragal tenderness. Resp Other: Lungs clear to auscultation, no wheezing, dry repetitive cough Cardio Other: Normal peripheral perfusion Skin Other: Warm dry no rash Neuro General: patient oriented x3, gait normal, no focal motor deficits and CN's II-XI intact bilaterally Psych Other: Cooperative Course Course Course Narrative: This is a Rapid Medical Examination (RME) performed by Anita Walker PA-C in triage. Full HPI, ROS, assessment and treatment plan per primary provider in the Main ED. 59 yo male hx ischemic cardiomyopathy and CAD here for eval of nasal congestion, subjective fevers, cough, sob, sore throat. denies chest pain. no known sick contacts. finished course of azithromycin today for suspected bronchitis. Plan: viral/strep swabs, cxr Medications Administered Discontinued Medications Generic Name Dose Route Start Last Admin Trade Name Davis PRN Reason Stop Dose Admin Amoxicillin/Clavulanate Potassium 875 mg 06/20/24 00:59 06/20/24 01:14 Amoxicillin/Potassium Clav 875 Mg Tablet PO 06/20/24 01:00 875 mg ONCE ONE Administration Doxycycline Monohydrate 100 mg 06/20/24 00:59 06/20/24 01:14 Doxycycline Monohydrate 100 Mg Capsule PO 06/20/24 01:00 100 mg ONCE ONE Administration Medical Decision Making Medical Decision Making MDM Narrative: 59-year-old male with a history of hypertension, hyperlipidemia, diabetes, coronary artery disease, ischemic cardiomyopathy, presents with cough and cold symptoms x1 week. Associated nasal congestion with facial pain, expelling blood-tinged mucus. Patient also complains of sore throat secondary to his postnasal drip. Patient was experiencing fullness within both ears with the ringing at times. Patient was also had a persisting dry cough. Associated low-grade fevers at home. Patient saw his primary care, and was placed on 3 days' worth of azithromycin . Problem: Diabetes, hypertension History: Per patient I have considered the following differential diagnoses: Pneumonia, bronchitis, viral syndrome, sinusitis, strep pharyngitis, [employer], RPA, serous otitis, otitis media, otitis externa Plan: Patient here with a wide constellation of symptoms. A viral panel and a chest x-ray were obtained from triage. 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 In regard to the ear pain, he has serous otitis without evidence of otitis media, the external ear canals are irritated, but not painful. The patient was found to have pneumonia on chest x-ray. We will treat accordingly. I have independently reviewed the following tests: Labs: Viral panel negative Chest x-ray:IMPRESSION: Airspace disease most pronounced in the right infrahilar region concerning for pneumonitis and/or pneumonia. Recommend attention on follow-up to ensure resolution. This document has been electronically signed by: Henry Gupta MD on 06/19/2024 21:09:25 Lab Data Labs: Lab Results 06/19/24 Range/Units 21:02 Influenza Type A (PCR) NEGATIVE (Negative) Influenza Type B (PCR) NEGATIVE (Negative) RSV RNA Qual (PCR) NEGATIVE (Negative) SARS-CoV-2 RNA (RT-PCR) NEGATIVE (Negative) S. pyogenes GrpA LINDY Negative (Negative) Discharge Plan Discharge Clinical Impression: Community acquired pneumonia Patient Disposition: Home, Self-Care Instructions: Community Acquired Pneumonia (ED) Additional Instructions: You were found to have pneumonia. See home care instructions. Take the doxycycline as directed, take the Augmentin as directed. You were also noted to have fluid within your in her ears, this is congestion related to your sinus congestion. You can use [id number] Zyrtec daily for at least a month, this will help alleviate the congestion. Regard to your sore throat, this is secondary to your postnasal drip. Warm saltwater gargles we will help alleviate your discomfort. You were screened for influenza a and B, RSV and COVID, the viral panel was negative. Follow up with your primary care provider as needed. Prescriptions: New doxycycline hyclate 100 mg capsule 100 mg PO BID Qty: 19 0RF amoxicillin-pot clavulanate 875-125 mg tablet 1 tab PO BID Qty: 19 0RF No Action Januvia 100 mg tablet 100 mg PO DAILY carvedilol 25 mg tablet 25 mg PO BID Rx Instructions: must administer with a meal/food atorvastatin 80 mg tablet 80 mg PO DAILY fluticasone propionate 50 mcg/actuation spray,suspension 1 spray intranasal DAILY Rx Instructions: administer into each nostril sacubitril-valsartan [Entresto] 49-51 mg tablet 1 tab PO BID ipratropium bromide 21 mcg (0.03 %) spray,non-aerosol 2 spray intranasal BID Rx Instructions: administer into each nostril icosapent ethyl [Vascepa] 1 gram capsule 2 g PO BID Qty: 120 5RF Print Language: Guamanian
[2024-06-19 21:17] LABS: IDNOW Serial# 6674DD1D; Strep A Nucleic Acid Negative (Negative)
[2024-06-19 21:49] LABS: Influenza A PCR NEGATIVE (Negative); Influenza B PCR NEGATIVE (Negative); Resp Syncy Virus RNA Qual PCR NEGATIVE (Negative); SARS COV2 PCR INHOUSE NEGATIVE (Negative)
[2024-06-19 23:53] VITALS: BP 116/80; PULSE 102; RESP 20; TEMP 37.2; O2SAT 96
--- NOTE | 2024-06-20 00:10 | PC.NURSE ---
pt is alert and oriented, skin pwd, respirations even and unlabored, pt reports for the last couple of days not feeling well, dry cough, bilateral mid back/rib pain, low grade fevers, ls clear and vs stable
[2024-06-20] MEDS: Amoxicillin/Potassium Clav 875 MG TABLET PO (01:14)
[2024-06-20] MEDS: Doxycycline Monohydrate 100 MG CAPSULE PO (01:14)
[2024-06-20 01:40] VITALS: BP 116/80; PULSE 102; RESP 20; TEMP 37.2; O2SAT 96
== END 2024-06-20 01:40 | disposition home or self-care (01) ==
PROVIDERS: Physician Assistant Medical; Emergency Provider Emergency Medicine
DX: J18.9 Pneumonia, unspecified organism (principal); R06.02 Shortness of breath; R05.9 Cough, unspecified; R50.9 Fever, unspecified; I25.10 Atherosclerotic heart disease of native coronary artery without angina pectoris; I10 Essential (primary) hypertension; E11.9 Type 2 diabetes mellitus without complications; R09.81 Nasal congestion; R51.9 Headache, unspecified; Z03.818 Encounter for observation for suspected exposure to other biological agents ruled out
CPT/HCPCS: 0241U; 71046; 87651; 99283; 99284

== ENCOUNTER → 2024-06-19 20:30 | Outpatient (BNV) | payer OTHER, SELFPAY | PROVIDERS: Visit Provider Radiology Neuroradiology | DX: R05.9 Cough, unspecified (principal); R50.9 Fever, unspecified | CPT/HCPCS: 71046 ==

== ENCOUNTER 2024-11-09 13:40 | Outpatient (AMB) | payer OTHER, SELFPAY ==
[2024-11-09 13:44] VITALS: BP 118/86; PULSE 92; TEMP 37.3; O2SAT 95; BMI 34.3
--- NOTE | 2024-11-09 13:44 | MHC.PC.OV ---
Vital Signs 11/09/24 13:44 Height 5 ft 5 in Weight 206 lb 2 oz BMI 34.3 BP 118/86 Blood Pressure Location Lt brachial Position Sitting Pulse 92 Pulse Source Pulse Oximeter Temp 99.1 F Temp Source Oral Pulse Oximetry (%) 95 Oxygen Delivery Method Room Air Intake Visit Reasons: establish care Support Teacher Required: No Accompanied by: Self / Same As Patient Allergies levaquin Allergy (Severe, Uncoded 11/09/24 13:54) rash Medication List - Last Reconciled 11/09/24 by YAZMIN Robles carvedilol 25 mg PO BID fluticasone propionate 50 mcg/actuation 1 spray intranasal DAILY sacubitril-valsartan 49-51 mg (Entresto) 1 tab PO BID sitagliptin phosphate (Januvia) 100 mg PO DAILY Tobacco use date assessed: 11/09/24 Dental Screening Dental Screen Date: 11/09/24 Did you have a dental visit in the last 12 months?: Yes Did you have a dental problem in the last 6 months where you did not have access to dental care?: No Was dental information given to patient?: Patient has dentist HPI [facility] HPI Details Patient is presenting to [facility] Previous PCP: Robi Boston MD at [facility] Last visit: Month and half ago Last PE:Reports that he is due Specialist: cardiology Problem: The patient is a 59-year-old male presenting to [facility]. He reports a history of recurrent pneumonia and bronchitis. His other major concern is diabetes mellitus. The patient reports a history of pneumonia, initially treated with antibiotics, but later requiring emergency care due to progression to full-blown pneumonia as confirmed by chest x-ray. He has recurrent bronchitis, worsening in fall and late summer, with symptoms of yellow secretions and fatigue. He denies allergies but reports a history of smoking and exposure to gas inhalation, leading to lung complications. The patient has a diagnosis of diabetes mellitus, managed with Ozempic, which initially caused gastrointestinal side effects but improved with dose adjustment. He reports difficulty with weight management and a recent A1c of approximately 9%, indicating poor glycemic control. 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 The patient also reports mild intermittent asthma, managed with albuterol as needed, and experiences acid reflux, particularly after certain meals. The the patient has a history of ischemic cardiomyopathy, CAD status post stented LAD and circumflex artery in 2020, chronic total occlusion to RCA 100% left side of face close to nose, white raised area. He is requesting and dermatology referral [facility] Medical History (Updated 11/10/24 @ 00:38 by YAZMIN Robles) Lung granuloma Essential hypertension NSTEMI (non-ST elevated myocardial infarction) Interstitial lung disease ST elevation myocardial infarction (STEMI) of anterior wall Ischemic cardiomyopathy CAD (coronary artery disease) Surgical History (Updated 11/10/24 @ 00:32 by YAZMIN Robles) Status post lobectomy of lung Stented coronary artery Family History Father Heart problem Mother COPD (chronic obstructive pulmonary disease) Social History Housing: Apartment Alcohol intake: never Patient Tobacco Use Status: Former Tobacco user e-Cigarette/Vaping Use: Never Used service: No Current occupational status: retired Current occupational exposures/hazards: No Cognitive needs: No Hearing needs: No Vision needs: Yes Questionnaire PHQ-9 Over the last 2 weeks, how often have you been bothered by any of the following problems? 1. Little interest or pleasure in doing things: more than half the days 2. Feeling down, depressed, or hopeless: not at all 3. Trouble falling or staying asleep, or sleeping too much: not at all 4. Feeling tired or having little energy: several days 5. Poor appetite or overeating: several days 6. Feeling bad about yourself - or that you are a failure or have let yourself or your family down: not at all 7. Trouble concentrating on things, such as reading the newspaper or watching television: not at all 8. Moving or speaking so slowly that other people could have noticed. Or the opposite - being so fidgety or restless that you have been moving around a lot more than usual: not at all 9. Thoughts that you would be better off or of hurting yourself in some way: not at all Total score: 4 Depression Screening Interpretation: Negative Depression Screening Done: Yes 02237 - PHQ-9 Billing: Yes Source: Developed by Drs. Jin Masters, Cristofer Troncoso and colleagues, with an educational mary kate from [employer]. Thrive Questionnaire I am a: Patient What is your living situation today?: I have a steady place to live Within the past 12 months, did the food you bought not last and you didn't have the money to get more?: Often true Within the past 12 months, did you worry whether your food would run out before you got money to buy more?: Sometimes True Do you have trouble paying for medicines?: No Do you have trouble getting transportation to medical appointments?: No Do you have trouble paying your heating and electricity bill?: No Do you have trouble taking care of your child, family member or friend?: No Do you have trouble with day-to-day activities such as bathing, preparing meals, shopping, managing finances, etc.?: No Are you currently unemployed and looking for a job?: No Are you interested in more education?: No Please select the resources that you would like help with: None Currently or been in a relationship where the following occur: No concerns reported THRIVE Score: 2 AUDIT C Alcohol Use Questionnaire (AUDIT-C) 1. How often do you have a drink containing alcohol?: Never 3. How often do you have six or more drinks on one occasion?: Never Total Score: 0 DANIEL-7 AMB Questionnaire DANIEL-7 Feeling nervous, anxious, or on edge: 0 = Not at all Not being able to stop or control worryin = Not at all Worrying too much about different things: 0 = Not at all Trouble relaxin = Not at all Being so restless that it is hard to sit still: 0 = Not at all Becoming easily annoyed or irritable: 0 = Not at all Feeling afraid as if something awful might happen: 0 = Not at all Total DANIEL-7 score (0-4 normal; 5-9 mild; 10-14 moderate; 15-21 severe): 0 Source: Developed by Drs. Jin Masters, Cristofer Troncoso and colleagues, with an educational mary kate from [employer]. DANIEL-7 Assessment Billing DANIEL-7 Assessment Tool: DANIEL-7 Assessment 62279 Review of Systems Const Denies headache(s) Eyes Denies loss of vision ENT Denies vertigo, Denies dizziness, Denies headache(s), Reports nasal congestion and Denies sore throat Card Denies chest pain, Denies leg edema, Denies lightheadedness and Reports dyspnea on exertion Resp Reports cough, Denies hemoptysis, Reports dyspnea on exertion and Denies wheezing GI Denies abdominal pain, Denies melena, Denies constipation, Denies diarrhea and Denies vomiting Denies dysuria, Denies urinary frequency and Denies urinary urgency Musc Denies arthralgias, Denies joint swelling, Denies numbness and Denies tingling Skin/Breast Reports other (small white raised area to left side of face) Neuro Denies Abnormal speech present, Denies behavioral changes, Denies vertigo, Denies dizziness, Denies headache(s), Denies loss of vision, Denies memory loss, Denies numbness and Denies tingling Psych Denies anxiety, Denies behavioral changes, Denies depression, Denies memory loss and Denies panic attacks Daryl/Lymph Denies easy bleeding and Denies easy bruising Aller/Immun Denies wheezing Physical exam (Primary Care) Vital Signs: Last Vital Signs Temp 99.1 F 11/09/24 13:44 Pulse 92 11/09/24 13:44 BP 118/86 11/09/24 13:44 Pulse Ox 95 11/09/24 13:44 Oxygen Delivery Method Room Air 11/09/24 13:44 BMI result Body Mass Index 34.3 Tobacco/Smoking Status: Tobacco use Status Tobacco use date assessed 11/09/24 11/09/24 13:48 Patient Tobacco Use Status Former Tobacco user 11/09/24 13:52 e-Cigarette/Vaping Use Never Used 11/09/24 13:52 PHQ-9: PHQ-9 Score PHQ-9: Total score 4 11/09/24 13:57 Depression Screening Interpretation: Negative Currently or been in a relationship where the following occur: No concerns reported Const General: healthy appearing, no acute distress, alert and awake Nutritional Appearance: well nourished Orientation/consciousness: oriented to person, oriented to place and oriented to time [facility] Head images:  1. single small raise white lesion to left side of face Ears: TM's normal bilaterally General nose exam: Abnormal mucous membranes and turbinates present boggy bilateral and erythematous bilateral and Nasal discharge present purulent on the left Eyes Conjunctivae: conjunctivae normal Sclerae: sclerae normal Pupils: Equal, round and reactive pupils present Neck Neck: Yes no lymphadenopathy and Yes no JVD Thyroid: Thyroid normal Carotids: no bruits Resp Effort & Inspection: normal respiratory effort and not tachypneic Auscultation: no crackles, no rales, no rhonchi and no wheezes Cardio Rate: regular rate Rhythm: regular rhythm Heart sounds: no murmurs and normal S1 and S2 GI Palpation (GI): Soft to palpation, nontender, no hepatomegaly and no splenomegaly Auscultation: normal bowel sounds General: Yes no CVA tenderness Back/Spine/Pelvis Back: no CVA tenderness Skin General skin exam: dry skin Lesions: lesion noted (left side of face proximal to nose, small, raise, white lesion) Neuro General: oriented to person, oriented to place and oriented to time Cranial nerves: Yes Equal, round and reactive pupils present Speech: No Abnormal speech present Gait exam (Neuro): Normal gait present Motor exam (neuro): no tremor noted Extrem Right upper extremity: full ROM Left upper extremity: full ROM Right lower extremity: full ROM; no edema Left lower extremity: full ROM; no edema Psych Mental Status: mental status grossly normal Speech and movement: Normal speech and movement present Affect: normal affect Attitude: cooperative Thought process: Normal thought process present Coding Level of Care Code New Pt Level 4 (65935) Diagnoses Ischemic cardiomyopathy I25.5 Coronary artery disease involving [place] coronary artery of [place] heart without angina pectoris I25.10 Coronary Disease-Associated Artery/Lesion type: [place] artery [place] vs. transplanted heart: [place] heart Associated angina: without angina Uncontrolled type 2 diabetes mellitus with hyperglycemia E11.65 Diabetes mellitus type: type 2 Asthma, unspecified asthma severity, unspecified whether complicated, unspecified whether persistent J45.909 Asthma severity: unspecified severity Asthma persistence: unspecified Asthma complication type: unspecified Rhinosinusitis J32.9 Milia L72.0 Essential hypertension I10 Obesity (BMI 30.0-34.9) E66.811 Mixed hyperlipidemia E78.2 Hyperlipidemia type: mixed hyperlipidemia Additional Codes DANIEL-7 Assessment Billing - DANIEL-7 Assessment Tool: DANIEL-7 Assessment 23563 ([id number]) PHQ-9 - 16284 - PHQ-9 Billing: Yes ([id number]) Time Spent (min) 42 Assessment & Plan Assessment & Plan (1) Ischemic cardiomyopathy: Code(s): I25.5 - Ischemic cardiomyopathy Category: Medical Plan: Patient has a history of ischemic cardiomyopathy with normal LV ejection fraction and was placed on medical therapy after revascularization. No sign of heart failure. Follow up with cardiology as scheduled (2) CAD (coronary artery disease): Comment: Stented LAD and circumflex artery in 2020, chronic total occlusion of RCA 100% Code(s): I25.10 - Atherosclerotic heart disease of [place] coronary artery without angina pectoris Category: Medical Qualifiers: Coronary Disease-Associated Artery/Lesion type: [place] artery [place] vs. transplanted heart: [place] heart Associated angina: without angina Qualified Code(s): I25.10 - Atherosclerotic heart disease of [place] coronary artery without angina pectoris Plan: Stented the LAD and circumflex artery in 2020, chronic total occlusion of RCA 100%. He denies anginal symptoms. Continue high-intensity statin, carvedilol 25 mg b.i.d., Entresto 49-51 mg 1 tab b.i.d. LDL goal less than 70. Ordered labs, we will advise (3) Uncontrolled diabetes mellitus with hyperglycemia: Code(s): E11.65 - Type 2 diabetes mellitus with hyperglycemia Category: Medical Qualifiers: Diabetes mellitus type: type 2 Qualified Code(s): E11.65 - Type 2 diabetes mellitus with hyperglycemia Plan: Patient reports that his last A1c was 9%. Reports that he used to be on Ozempic but has not been able to get this medication for over a month. Ozempic 0.5 mg ordered subQ q.week, continue Januvia 100 mg daily (4) Asthma: Code(s): J45.909 - Unspecified asthma, uncomplicated Category: Medical Qualifiers: Asthma severity: unspecified severity Asthma persistence: unspecified Asthma complication type: unspecified Qualified Code(s): J45.909 - Unspecified asthma, uncomplicated Plan: Reports intermittent asthma that is managed by albuterol sulfate 90 mcg/actuation 2 puffs inh q.4-6 hours p.r.n. (5) Rhinosinusitis: Code(s): J32.9 - Chronic sinusitis, unspecified Category: Medical Plan: Reports ongoing nonproductive cough that he is concerned about due to his recurrent bronchitis. On exam turbinates is reddened and boggy with some purulent drainage. Augmentin 875-125 mg b.i.d. x7 days ordered (6) Milia: Code(s): L72.0 - Epidermal cyst Category: Medical Plan: Small, white, raised lesion to left side of face close to nose. Patient reports that this area been present for some time. Reports that this lesion is not bothersome; however, he hates the site of it and would like to be referred to a Dermatology. (7) Essential hypertension: Code(s): I10 - Essential (primary) hypertension Category: Medical Plan: Blood pressure 118/86. Systolic goal less than 130mm hg Reinforced low salt diet Continue carvedilol 25 mg BID, sacubitril-valsartan 49-51 mg bid, (8) Obesity (BMI 30.0-34.9): Code(s): E66.811 - Obesity, class 1 Category: Medical Plan: Encouraged to exercise for at least 30 minutes a day/5 days a week Healthy eating discussed. Encouraged to eat fruits/vegetables, protein-fish/baked chicken, and to avoid salty/fried foods, sweets, caffeine and carbohydrates. Encouraged to increase water intake 6-8 glasses a day (9) HLD (hyperlipidemia): Code(s): E78.5 - Hyperlipidemia, unspecified Category: Medical Qualifiers: Hyperlipidemia type: mixed hyperlipidemia Qualified Code(s): E78.2 - Mixed hyperlipidemia Plan: reinforced low cholesterol diet and activity as tolerated Continue atorvastatin 80 mg and fenofibrate micronized 134 mg daily Ordered labs, we will advise Orders: Orders Complete Blood Count Auto Diff 11/09/24 E11.65 - Type 2 diabetes mellitus with hyperglycemia, E11.9 - Type 2 diabetes mellitus without complications, I25.10 - Atherosclerotic heart disease of [place] coronary artery without angina pectoris, I25.5 - Ischemic cardiomyopathy Comprehensive [place]. Panel Fast 11/09/24 E11.65 - Type 2 diabetes mellitus with hyperglycemia, E11.9 - Type 2 diabetes mellitus without complications, I25.10 - Atherosclerotic heart disease of [place] coronary artery without angina pectoris, I25.5 - Ischemic cardiomyopathy TSH reflex Free T4 11/09/24 E11.65 - Type 2 diabetes mellitus with hyperglycemia, E11.9 - Type 2 diabetes mellitus without complications, I25.10 - Atherosclerotic heart disease of [place] coronary artery without angina pectoris, I25.5 - Ischemic cardiomyopathy UA CC w/rflx Micro + Cult 11/09/24 E11.65 - Type 2 diabetes mellitus with hyperglycemia, E11.9 - Type 2 diabetes mellitus without complications, I25.10 - Atherosclerotic heart disease of [place] coronary artery without angina pectoris, I25.5 - Ischemic cardiomyopathy Vitamin D 25-OH Total 11/09/24 E11.65 - Type 2 diabetes mellitus with hyperglycemia, E11.9 - Type 2 diabetes mellitus without complications, I25.10 - Atherosclerotic heart disease of [place] coronary artery without angina pectoris, I25.5 - Ischemic cardiomyopathy PSA,Total (Free>4and<10) 11/09/24 E11.65 - Type 2 diabetes mellitus with hyperglycemia, E11.9 - Type 2 diabetes mellitus without complications, I25.10 - Atherosclerotic heart disease of [place] coronary artery without angina pectoris, I25.5 - Ischemic cardiomyopathy B Type Natriuretic Peptide 11/09/24 J45.909 - Unspecified asthma, uncomplicated Lipid Panel 11/09/24 E11.65 - Type 2 diabetes mellitus with hyperglycemia, E11.9 - Type 2 diabetes mellitus without complications, I25.10 - Atherosclerotic heart disease of [place] coronary artery without angina pectoris, I25.5 - Ischemic cardiomyopathy Hemoglobin A1c 11/09/24 E11.65 - Type 2 diabetes mellitus with hyperglycemia, E11.9 - Type 2 diabetes mellitus without complications, I25.10 - Atherosclerotic heart disease of [place] coronary artery without angina pectoris, I25.5 - Ischemic cardiomyopathy Referrals Dermatology Referral L72.0 - Epidermal cyst Medications: New semaglutide (Ozempic) 0.5 mg (0.736 mL) subcut QWEEK 4 weeks 2.944 mL 0RF amoxicillin-pot clavulanate 875-125 mg 1 tab PO BID 14 tabs 0RF 7 days atorvastatin (Lipitor) 80 mg PO BEDTIME 90 tabs 3RF fenofibrate micronized 134 mg PO DAILY 90 caps 3RF semaglutide (Ozempic) Take medication for 4 weeks, then reeval for possible dosage increase 0.5 mg (0.736 mL) subcut QWEEK 3 mL 0RF 4 weeks E11.9 - Type 2 diabetes mellitus without complications albuterol sulfate 90 mcg/actuation (Ventolin HFA) 2 puffs inhalation Q4-6H PRN 8.5 grams 3RF shortness of breath or wheezing
--- OUTSIDE RECORDS SUMMARY | 2024-11-09 14:22 | XMS_ITS | Clinical Summary ---
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 Joint pain DX:Joint pain S/P partial lobectomy of lung DX :S/P partial lobectomy of lung; COMMENT: partial left Obesity DX:Obesity Bronchitis DX:Bronchitis Essential hypertension DX:Essent ial hypertension Hyperlipidemia DX:Hyperlipidemi a Family history of cardiovasc ular disease DX:Family history of cardiov ascular disease Type 2 diabetes mellitus wit hout complication ([facility] V24, [facility] V28) 09/30/2020 DX:Type 2 diabetes mellitus without complication ([facility]) Carotid artery occlusion 01/03/2021 DX:Breaux tid artery occlusion; COMMENT: Chronic, R carotid. ST elevation myocardial infa rction involving left anterior descending (LAD) coronary artery ([facility] V24, [facility] V28) 09/30/2020 DX:ST elevation myocardial i nfarction involving left anterior descending (LAD) coronary artery ([facility]) Family History Medical History Relation Name Comments [...] Value Date Recorded Sex Assigned at Male 07/15/2024 11:24 AM EDT Legal Sex Male 3:21 PM EST Gender Identity Male 07/15/2024 11:24 AM EDT Sexual Orientation Choose not to disclose 2024 11:24 AM EDT Obstetrics History Last Filed Vital Signs Vital [...] 02/05/1974 Diabetes: Annual Retina Eye Exam 02/05/1974 HIV Screening 04/04/2022 Hepatitis C Screening 04/04/2022 Medicare Annual Wellness Visit 04/04/2022 Social Influencers of Health Screening 04/04/2022 Colorectal Cancer Screening: Stool Based Tests (FOBT/FIT) 03/06/2023 03/06/2022 COVID-19 Vaccine ( season) 2023 08/14/2020, 07/22/2020 Depression Screening 02/03/2024 02/02/2023 RSV Immunization Adult Patients (1 - Risk 60-74 years 1-dose series) 2024 Influenza Vaccine (#1) 2024 Diabetes: Blood Sugar Control Test (HGBA1C) 01/26/2025 07/27/2024, 03/30/2024, 06/25/2023 Diabetes: Annual Urine Albumin-Creatinine Ratio (uACR) 03/30/2025 03/30/2024, 01/30/2021 Diabetes: Annual GFR (Glomerular Filtration Rate) 03/30/2025 03/30/2024, 02/03/2023 Hypertension/CHF/CAD Annual BMP Blood Test 03/30/2025 03/30/2024, 02/03/2023 DTaP,Tdap,and Td Vaccines (2 - Td or Tdap) 07/18/2025 07/19/2015 Cholesterol Screening (Lipid Panel) 07/17/2029 07/17/2024, 03/30/2024, 02/03/2023, Additional history exists Zoster Vaccines Completed 07/23/2022, 03/02/2022 Pneumococcal Vaccine: 50+ Years Completed 05/26/2024 HIB Vaccines Aged Out No longer eligi [...] age to complete this topic Meningococcal B Vaccine Aged Out No l onger eligible based on patient's age to complete this topic RSV Immunization Patients Under 20 months Aged Out No longer eligible based on patient's age to complete this topic Varicella Vaccines Aged Out No longer eligible based on patient's age to complete this topic Procedures Procedure Name Priority Date/Time Associated Diagnosis Comments HEMOGLOBIN A1C Routine 07/27/2024 10:12 AM EDT Type II or unspecified type diabetes mellitus with renal manifestations, uncontrolled(250.42) (CMS/HCC V24, [facility] V28) LIPID PANEL WITH REFLEX TO DIRECT LDL Routine 07/17/2024 9:02 AM EDT Coronary atherosclerosis of [place] coronary artery MICROALBUMIN CREATININE URINE RATIO Routine 03/30/2024 11:11 AM EST Hyperlipidemia Essential hypertension, benign Coronary atherosclerosis of [place] coronary artery Heart failure, systolic ([facility] V24, [facility] V28) Referral of patient without examination or treatment COMPREHENSIVE METABOLIC PANEL Routine 03/30/2024 11:05 AM EST Hyperlipidemia Essential hypertension, benign Coronary atherosclerosis of [place] coronary artery Heart failure, systolic ([facility] V24, [facility] V28) Referral of patient without examination or treatment from Last 3 Months or Most Recently Relevant to Health Maintenance Results * (ABNORMAL) Hemoglobin A1c (07/27/2024 10:12 AM EDT) Pathologist [facility] Hemoglobin A1C 9.6(H) <6.5 % LAB CHEMISTRY METHOD 07/27/2024 2:20 PM EDT [facility] Mean Bld Glu Estim. 229 mg/dL LAB CHEMISTRY METHOD 07/27/2024 2:20 PM EDT [facility] Blood Venous blood specimen / Unknown Venipuncture / Unknown 07/27/2024 10:12 AM EDT 07/27/2024 10:22 AM EDT us Rajendra Eaton PharmD LAB BLOOD ORDERABLES Lesly l Result [facility] [address] [place] [address], [place] [phone] * Lipid panel with reflex to direct LDL (07/17/2024 9:02 AM EDT) Pathologist [facility] Cholesterol 156 0 - 200 mg/dL LAB CHEMISTRY METHOD 07/17/2024 12:44 PM EDT [facility] Triglycerides 134 0 - 150 mg/dL LAB CHEMISTRY METHOD 07/17/2024 12:44 PM EDT [facility] HDL 41 >=40 mg/dL LAB CHEMISTRY METHOD 07/17/2024 12:44 PM EDT [facility] LDL Calculated 88 0 - 100 mg/dL LAB CHEMISTRY METHOD 07/17/2024 12:44 PM EDT [facility] VLDL Cholesterol Norbert 26.8 mg/dL LAB CHEMISTRY METHOD 07/17/2024 12:44 PM EDT [facility] Non HDL Chol. (LDL+VLDL) 115 <145 mg/dL LAB CHEMISTRY METHOD 07/17/2024 12:44 PM EDT [facility] Chol/HDL Ratio 3.8 0.0 - 4.4 LAB CHEMISTRY METHOD 07/17/2024 12:44 PM EDT [facility] Blood Venous blood specimen / Unknown Venipuncture / Unknown 07/17/2024 9:02 AM EDT 07/17/2024 10:47 AM EDT us Jay Sams MD LAB BLOOD ORDERABLES Final Resul t Performing Organization Address City/[facility]/ZIP Co de Phone Number [facility] [address] [place] [address], * (ABNORMAL) Microalbumin creatinine urine ratio (03/30/2024 11:11 AM EST) Creatinine, Urine 55.0 mg/dL LAB CHEMISTRY METHOD 03/30/2024 12:19 PM EST [facility] Microalb, Ur 21.5 0.0 - 29.0 mg/L LAB CHEMISTRY METHOD 03/30/2024 12:19 PM EST [facility] Microalb/Creat Ratio 39(H) <30 mg/g creat LAB CHEMISTRY METHOD 03/30/2024 12:19 PM EST [facility] Urine Urine specimen obtained by clean catch procedure / Unknown Non-blood Collection / Unknown 03/30/2024 11:11 AM EST 03/30/2024 11:19 AM EST us Susan Mejia NP LAB URINE ORDERABLE S Final Result Performing Organization Address City/[facility]/ZIP Co de Phone Number [facility] [address] [place] [address], [place] [phone] * (ABNORMAL) Comprehensive metabolic panel (03/30/2024 11:05 AM EST) Sodium 135 133 - 145 mmol/L LAB CHEMISTRY METHOD 03/30/2024 12:12 PM [facility] Potassium 4.2 3.5 - 5.5 mmol/L LAB CHEMISTRY METHOD 03/30/2024 12:12 PM [facility] Chloride 103 96 - 110 mmol/L LAB CHEMISTRY METHOD 03/30/2024 12:12 PM [facility] CO2 27 21 - 32 mmol/L LAB CHEMISTRY METHOD 03/30/2024 12:12 PM [facility] Anion Gap 5 3 - 11 LAB CHEMISTRY METHOD 03/30/2024 12:12 PM [facility] Glucose 361(H) 70 - 100 mg/dL LAB CHEMISTRY METHOD 03/30/2024 12:12 PM [facility] BUN 18 5 - 25 mg/dL LAB CHEMISTRY METHOD 03/30/2024 12:12 PM [facility] Creatinine 1.13 0.70 - 1.30 mg/dL LAB CHEMISTRY METHOD 03/30/2024 12:12 PM [facility] eGFR 74 >=60 mL/min/1. 73m2 LAB CHEMISTRY METHOD 03/30/2024 12:12 PM [facility] Comment:Calculation based on the Chronic Kidney Disease Epidemiology Collaboration (CKD-EPI) equation refit without adjustment for race. BUN/Creatinine Ratio 15.9 LAB CHEMISTRY METHOD 03/30/2024 12:12 PM [facility] Calcium 9.2 8.5 - 10.5 mg/dL LAB CHEMISTRY METHOD 03/30/2024 12:12 PM [facility] AST (SGOT) 22 10 - 42 unit/L LAB CHEMISTRY METHOD 03/30/2024 12:12 PM [facility] ALT (SGPT) 49 10 - 60 unit/L LAB CHEMISTRY METHOD 03/30/2024 12:12 PM EST [facility] Alkaline Phosphatase 69 42 - 121 unit/L LAB CHEMISTRY METHOD 03/30/2024 12:12 PM [facility] Total Protein 7.2 6.0 - 8.0 g/dL LAB CHEMISTRY METHOD 03/30/2024 12:12 PM EST [facility] Albumin 3.9 3.2 - 5.0 g/dL LAB CHEMISTRY METHOD 03/30/2024 12:12 PM [facility] Total Bilirubin 0.8 0.0 - 1.4 mg/dL LAB CHEMISTRY METHOD 03/30/2024 12:12 PM [facility] Blood Venous blood specimen / Unknown Venipuncture / Unknown 03/30/2024 11:05 AM EST 03/30/2024 11:20 AM EST us Susan Mejia NP LAB BLOOD ORDERABLE S Final Result [facility] [address] [place] [address], from Last 3 Months or Most Recently Relevant to Health Maintenance Insurance [facility] Member Subscriber Plan / Payer (Ef fective 2023-Present) Name:Mohsen Pearce Relation to Subscriber:Self Name:Mohsen Pearce Payer ID:[id number] Group ID:[id number] Type:Not on file Address: [place] [address] [place] [phone] [facility] MEDICARE Member Subscriber Plan / Payer (Ef fective 2023-Present) Name:Mohsen Pearce Relation to Subscriber:Self Name:Mohsen Pearce Payer ID:[id number] Group ID:[id number] Type:Not on file Address: [facility] [place] [phone] Care Teams Bronze Plater Relationship Specialty Start Date End Date Shilo Vasquez MD [address] [place] [id number] PCP - General Internal Medicine 08/24/21
--- OUTSIDE RECORDS SUMMARY | 2024-11-09 14:22 | XMS_ITS | Clinical Summary ---
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 Name Role Phone Eagle Aguirre PA-C Primary Care Provider Source Comments PLEASE NOTE, if this patient is a minor, it may be UNLAWFUL to discuss sensitive information that is contained in these records (such as FAMILY PLANNING, MENTAL HEALTH or SUBSTANCE ABUSE) with the minor patient's parent or other person without the patient's specific authorization.[facility] Allergies Active Allergy Reactions Criticality Noted Date Comments Latex 07/15/2024 Levofloxacin Rash Medium 01/30/2021 Itchy rash (not hives) Sulfamethoxazole-Trimethopr im Nausea Only 10/02/2015 Medications PROAIR HFA 90 mcg/actuation inhalerIndications:M ild intermittent asthma without complication (HHS-HCC) Inhale 2 Puffs into the lungs every 4 to 6 (four to six) hours as needed for shortness of breath or wheezing 18 g 1 03/02/20 [address] Active aspirin [address] tabletIndications:Es sential hypertension Take 1 Tablet by mouth 1 time each day 90 Tablet 1 07/24/19 23 Active budesonide-formotero L (SYMBICORT) 160-4.5 mcg/actuation inhalerIndications:M ild intermittent asthma without complication (HHS-HCC) Inhale 2 Puffs into the lungs 2 (two) times daily 10.2 g 5 07/24/19 23 Active acetaminophen (TYLENOL 8 HOUR) 650 mg CR tablet Take 1 Tablet by mouth every 8 (eight) hours as needed for pain 60 Tablet 2 10/16/19 23 Active loratadine (CLARITIN) 10 mg tabletIndications:Al lergic rhinitis, unspecified seasonality, unspecified trigger Take 1 Tablet by mouth once daily as needed for allergies 90 Tablet 08/23/19 24 Active atorvastatin (LIPITOR) 80 mg tabletIndications:Ty pe 2 diabetes mellitus with hyperglycemia, with long-term current use of insulin ([facility]),Hyperlipide freda LDL goal <70 Take 1 Tablet by mouth nightly at bedtime For cholesterol 90 Tablet 1 07/28/19 25 Active sacubitriL-valsartan (ENTRESTO) 49-51 mg tabIndications:Heart failure with reduced ejection fraction ([facility]) Take 1 Tablet by mouth 2 (two) times daily (Prescribed by [facility] cardiology) 07/28/19 25 Active carvediloL (COREG) 25 mg tabletIndications:He art failure with reduced ejection fraction ([facility]) Take 1 Tablet by mouth 2 (two) times daily (Prescribed by [facility] cardiology) 07/28/19 25 Active blood-glucose meter monitoring kitIndications:Type 2 diabetes mellitus with hyperglycemia, with long-term current use of insulin ([facility]) Use to test blood glucose twice daily. (Freestyle Lite) 1 Each 07/28/19 25 Active blood sugar diagnostic stripsIndications:Ty pe 2 diabetes mellitus with hyperglycemia, with long-term current use of insulin ([facility]) Use to test blood glucose twice daily. (Freestyle Lite) 100 Each 07/28/19 25 Active lancets (FREESTYLE LANCETS) 28 gaugeIndications:Typ e 2 diabetes mellitus with hyperglycemia, with long-term current use of insulin ([facility]) Use to test blood glucose twice daily. (Freestyle Lite) 100 Each 07/28/19 25 Active alcohol swabsIndications:Typ e 2 diabetes mellitus with hyperglycemia, with long-term current use of insulin ([facility]) Use to test blood glucose twice daily. 100 Each 07/28/19 25 Active blood-glucose,receiv er,cont (FREESTYLE GIORGI 3 READER) miscIndications:Type 2 diabetes mellitus with hyperglycemia, with long-term current use of insulin ([facility]) Use to test blood glucose continuously. (Freestyle Giorgi 3 reader) 1 Each 07/28/19 25 Active blood-glucose sensor (FREESTYLE GIORGI 3 SENSOR) deviIndications:Type 2 diabetes mellitus with hyperglycemia, with long-term current use of insulin ([facility]) Apply to back of upper arm every 14 days. Use to test blood glucose continuously (Freestyle Giorgi 3 sensor) 2 Each 11 07/28/19 25 Active SITagliptin phosphate (JANUVIA) 100 mg tabletIndications:Ty pe 2 diabetes mellitus with hyperglycemia, with long-term current use of insulin ([facility]),Type 2 diabetes mellitus with microalbuminuria ([facility]) Take 1 Tablet by mouth once daily Stop Ozempic per patient preference 30 Tablet 5 08/04/19 25 Active fenofibrate micronized (LOFIBRA) 134 mg capsuleIndications:H ypertriglyceridemia TAKE 1 CAPSULE BY MOUTH EVERY DAY WITH BREAKFAST 30 Capsule 3 08/08/19 25 Active Active Problems Problem Noted Date Diagnosed Date Class 2 severe obesity due t o excess calories with serious comorbidity and body mass index (BMI) of 36.0 to 36.9 in adult ([facility]) 07/27/2024 Type 2 diabetes mellitus wit h hyperglycemia, with long-term current use of insulin ([facility]) 07/27/2024 H/O acute myocardial infarction of inferior wall 07/15/2024 Ischemic cardiomyopathy 07/15/2024 Mild intermittent asthma without complication ([facility]) 09/17/2021 Arthralgia 04/21/2021 Heart failure with reduced e jection fraction ([facility]) 04/21/2021 Overview (09/17/2021): [facility] Hyperlipidemia LDL goal <70 04/21/2021 S/P lobectomy of lung 04/21/2021 Interstitial lung disease ([facility]) 2020 Overview (04/21/2021): Based on previous chext x-rays done at [facility] NSTEMI (non-ST elevated myoc ardial infarction) ([facility]) 04/21/2021 Type 2 diabetes mellitus wit h microalbuminuria ([facility]) 10/02/2015 Overview (07/27/2024): DM dx: ~[phone] at [facility] Glucometer: Freestyle Lite (issued Freestyle Giorgi 3) Current Diabetes RX: Ozempic 5 mg once weekly every JA-I/ARB: Entresto 49/51 mg twice daily (prescribed by [facility] cardiology) Statin: Atorvastatin 80 mg daily every evening Pneumococcal vaccine: PCV20 (05/26/24) Diabetes foot exam: Never Diabetes retinal exam: 07/29/24 at [facility] No active diabetic retinopathy or macular edema Vitreous floaters OU - no retinal detachment or retinal tear noted Nuclear sclerosis OU - the cataracts are mild and have minimal impact on vision at this time Cortical age-related cataract OU - see above plan Dermatochalasis bilateral UL - blepharoplasty deferred at this time Presbyopia - the patient was given new glasses RX today Essential hypertension 10/02/2015 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 Nephrolithiasis 10/02/2015 Overview (10/02/2015): Last episode ~2012, went to [facility] Chronic pain of both shoulders 10/02/2015 Overview (10/02/2015): Pt says that he had calcium deposits. Was following at [facility]. Using Naproxen prn Allergic rhinitis 10/02/2015 Resolved Problems Problem Noted Date Diagnosed Date Resolved Date Uncontrolled type 2 diabetes mellitus with hyperglycemia ([facility]) 04/21/2021 07/27/2024 Dyslipidemia 10/02/2015 07/27/2024 Morbid obesity ([facility]) 10/02/2015 07/27/2024 Encounters Date Type Department Care Team Description 10/02/2024 Interim Notes [address] [id number] Gilda Mccollum MA from Last 3 Months Immunizations Immunization Administration Dates Next Due PNEUMOCOCCAL CONJUGATE PCV 20 (Prevnar 20) 05/26 TDAP 07/19/2015,07/19/2015 ZOSTER VACCINE, RECOMBINANT (SHINGRIX) ,03/02/2022 Social History Tobacco Use Types Packs/Day Years Used Date Smoking Tobacco: Former Cigarettes Passive Smoke Exposure: Never Smokeless Tobacco: Never Tobacco Cessation:Counseling Given: Not Answered Comments:quit when he was 16yo Alcohol Use [...] Reading Time Taken Comments Blood Pressure 114/80 07/27/2024 9:08 AM EDT Pulse 79 07/27/2024 9:08 AM EDT Temperature 36.3 C (97.4 F) 05/26/2024 9:02 AM EST Respiratory Rate 18 07/27/2024 9:08 AM EDT Oxygen Saturation 98% 07/27/2024 9:08 AM EDT Inhaled Oxygen Concentration - - Weight 93.9 kg (207 lb) 07/27/2024 9:08 AM EDT Height 160 cm (5' 3 ) 07/27/2024 9:08 AM EDT Body Mass Index 36.67 07/27/2024 9:08 AM EDT Plan of Treatment Health Maintenance Due Date Last Done Comments Anxiety Screening 1965 Dental Examination 1965 Medicare Annual Wellness Visit 02/05/1982 CT Colonography 02/05/2009 Colonoscopy 02/05/2009 Fecal DNA 02/05/2009 Flexible Sigmoidoscopy 02/05/2009 Colorectal Cancer Screening 03/06/2023 FIT/gFOBT 03/06/2023 03/06/2022 Hbh-SXODO-90 ( season) 2023 08/14/2020, 07/22/2020 Depression Annual Screen 04/26/2024 02/02/2023 Hemoglobin A1c 06/28/2024 03/30/2024, 1208/2023, 06/25/2023, Additional history exists Imm-Influenza (#1) 2024 Serum Creatinine 03/30/2025 03/30/2024, 02/2023, 12/24/2021, Additional history exists Urine Albumin Creatinine Ratio Screening 03/30/2025 03/30/2024, 01/30/2021 Lipid Screening 07/17/2025 07/17/2024, 06/25, 03/30/2024, Additional history exists Imm-DTaP/Tdap/Td (3 - Td or Tdap) 07/18/2025 07/19/2015, 07/19/2015 Tobacco Screening 07/27/2025 07/27/2024, 03/02/2022 Retinopathy Screening 08/02/2025 08/02/2024, 024 Imm-Zoster, Recombinant Completed 07/23/2022, 03/02 Imm-Pneumococcal 50+ Completed 05/26/2024 Alcohol and Drug Screen Completed 07/28/19, 02/02/2023, 06/05/2021, Additional history exists Diabetes Foot Exam Discontinued HIV Screening Discontinued Hepatitis C Screening Discontinued Imm-Hepatitis B Aged Out No longer el igible based on patient's age to complete this topic Procedures Procedure Name Priority Date/Time Associated Diagnosis Comments OTHER ORDERS SCANNED DOCUMENT 08/16/2024 3:00 AM EDT EYE EXAM 08/02/2024 3:00 AM EDT HGBA1C W/MPG Routine 06/25/2023 2:14 PM EST Uncontrolled type 2 diabetes mellitus with hyperglycemia (HCC-CMS) COMPREHENSIVE METABOLIC PANEL Routine 02/03/2023 11:59 AM EDT Heart failure with reduced ejection fraction (HCC-CMS) Uncontrolled type 2 diabetes mellitus with hyperglycemia (HCC-CMS) Type 2 diabetes mellitus with microalbuminuria, unspecified whether director long term care insulin use Dyslipidemia Morbid obesity (HCC-CMS) Hypertriglyceridemia 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, without long-term current use of insulin LIPID PANEL Routine 02/03/2023 11:59 AM EDT Heart failure with reduced ejection fraction (HCC-CMS) Uncontrolled type 2 diabetes mellitus with hyperglycemia (HCC-CMS) Type 2 diabetes mellitus with microalbuminuria, unspecified whether detention insulin use Dyslipidemia Morbid obesity (HCC-CMS) Hypertriglyceridemia 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, without long-term current use of insulin FECAL GLOBIN BY IMMUNOCHEMISTRY (FIT) Routine 03/06/2022 1:17 PM EST Encounter for colorectal cancer screening MICROALBUMIN/CREATININE RATIO, URINE, RANDOM Routine 01/30/2021 11:22 AM EDT Type 2 diabetes mellitus with microalbuminuria, without long-term current use of insulin ([facility]) from Last 3 Months or Most Recently Relevant to Health Maintenance Results * OTHER ORDERS SCANNED DOCUMENT (08/16/2024 3:00 AM EDT) 08/16/2024 3:00 AM EDT us Eagle Aguirre PA-C SCAN OTHER ORDERS Final Resu lt * EYE EXAM (08/02/2024 3:00 AM EDT) 08/02/2024 3:00 AM EDT us Eagle RAMIREZ-C OTHER Final Result * (ABNORMAL) HGBA1C W/MPG (06/25/2023 2:14 PM EST) HEMOGLOBIN A1C 11.9(H) <5.7 % of total Hgb [facility] Comment: For someone without known diabetes, a hemoglobin A1c value of 6.5% or greater indicates that they may have diabetes and this should be confirmed with a follow-up test. For someone with known diabetes, a value <7% indicates that their diabetes is well controlled and a value greater than or equal to 7% indicates suboptimal control. A1c targets should be individualized based on duration of diabetes, age, comorbid conditions, and other considerations. Currently, no consensus exists regarding use of hemoglobin A1c for diagnosis of diabetes for children. MEAN PLASMA GLUCOSE 346 mg/dL (calc) [facility] Blood Blood / Unknown 06/25/2023 2 :14 PM EST 06/25/2023 2:14 PM EST Tien Francisco PharmD LAB - BLOOD D RAW Final Result [facility] [address] [place] [id number], [facility] [address] [place] [phone] * (ABNORMAL) LIPID PANEL (02/03/2023 11:59 AM EDT) [facility] Signature CHOLESTEROL, TOTAL 186 <200 mg/dL [facility] HDL CHOLESTEROL 31(L) > OR = 40 mg/dL [facility] TRIGLYCERIDES 429(H) <150 mg/dL [facility] Comment: If a non-fasting specimen was collected, consider repeat triglyceride testing on a fasting specimen if clinically indicated. Rachel et al. J. of Clin. Lipidol. 2015;9:129-169. LDL-CHOLESTEROL See Note [email or web address] Comment: LDL cholesterol not calculated. Triglyceride levels greater than 400 mg/dL invalidate calculated LDL results. Reference range: <100 Desirable range <100 mg/dL for primary prevention; <70 mg/dL for patients with CHD or diabetic patients with > or = 2 CHD risk factors. LDL-C is now calculated using the Frank calculation, which is a validated novel method providing better accuracy than the Friedewald equation in the estimation of LDL-C. Nelson SS et al. LIZET. 2013;310(19): 6244-8797 (http://education.Finestrella/faq/SPH183) CHOL/HDLC RATIO 6.0(H) <5.0 (calc) [facility] NON-HDL CHOLESTEROL 155(H) <130 mg/dL (calc) [facility] Comment: For patients with diabetes plus 1 major ASCVD risk factor, treating to a non-HDL-C goal of <100 mg/dL (LDL-C of <70 mg/dL) is considered a therapeutic option. Blood Blood / Unknown 02/03/2023 1 1:59 AM EDT 02/03/2023 11:59 AM EDT Nilo RAMIREZ LAB - BLOOD DRAW Final Result [employer] [facility] [address] [address], [employer] [address] [phone] * (ABNORMAL) COMPREHENSIVE METABOLIC PANEL (02/03/2023 11:59 AM EDT) GLUCOSE 383(H) 65 - 99 mg/dL [facility] Comment: Fasting reference interval For someone without known diabetes, a glucose value >125 mg/dL indicates that they may have diabetes and this should be confirmed with a follow-up test. UREA NITROGEN (BUN) 20 7 - 25 mg/dL [facility] CREATININE (blood) 1.30 0.70 - 1.30 mg/dL [facility] EGFR 64 > OR = 60 mL/min/1. 73m2 [facility] BUN/CREATININE RATIO SEE NOTE: [facility] Comment: Not Reported: BUN and Creatinine are within reference range. SODIUM 133(L) 135 - 146 mmol/L [facility] POTASSIUM 4.5 3.5 - 5.3 mmol/L [facility] CHLORIDE 97(L) 98 - 110 mmol/L [facility] CARBON DIOXIDE 26 20 - 32 mmol/L [facility] CALCIUM 8.9 8.6 - 10.3 mg/dL [facility] PROTEIN, TOTAL 6.9 6.1 - 8.1 g/dL [facility] ALBUMIN 4.0 3.6 - 5.1 g/dL [facility] GLOBULIN 2.9 1.9 - 3.7 g/dL (calc) [employer] [facility] ALBUMIN/GLOBULI N RATIO 1.4 1.0 - 2.5 (calc) [employer] [facility] BILIRUBIN, TOTAL 0.8 0.2 - 1.2 mg/dL [employer] [facility] ALKALINE PHOSPHATASE 50 35 - 144 U/L [employer] [facility] AST 16 10 - 35 U/L [employer] [facility] ALT 25 9 - 46 U/L [employer] [facility] Blood Blood / Unknown 02/03/2023 1 1:59 AM EDT 02/03/2023 11:59 AM EDT us Nilo RAMIREZ LAB - BLOOD DRAW Edited Result - Final Performing Organization Address [facility] [address]/[facility] Co de Phone Number [employer] [facility] [address] [address], [employer] [address] [phone] * FECAL GLOBIN BY IMMUNOCHEMISTRY (FIT) (03/06/2022 1:17 PM EST) FECAL GLOBIN BY IMMUNOCHEMISTRY See Note [employer] [facility] Comment: FECAL GLOBIN BY IMMUNOCHEMISTRY Micro Number: [id number] Test Status: Final Specimen Source: Insure (tm) fobt test card Specimen Quality: Adequate Fecal Globin: Not Detected Comment: Test results may be invalid as no date of collection was provided. Specimens are stable for 14 days. NO COLLECTION DATE RECEIVED. WE HAVE USED THE DATE THE SPECIMEN WAS RECEIVED BY THIS LABORATORY THE COLLECTION DATE. IF THIS IS INCORRECT, PLEASE CONTACT CLIENT SERVICES. PHONE NUMBER: Stool Stool specimen / Unknown 03/05/2022 11:56 PM EST us Nilo RAMIREZ LAB BODY FLUIDS AND STOOLS AMB ULATORY Final Result Performing Organization Address [facility] [address]/[facility] Co de Phone Number [employer] [facility] [address] [address], [employer] [facility] [address] [address] * MICROALBUMIN/CREATININE RATIO, URINE, RANDOM (01/30/2021 11:22 AM EDT) CREATININE, RANDOM URINE 91 20 - 320 mg/dL [employer] [facility] MICROALBUMIN 2.5 mg/dL [email or web address] [facility] Comment: Reference Range Not established MICROALBUMIN/CREA TININE RATIO, RANDOM URINE 27 <30 mcg/mg creat [facility] [facility] Comment: The ADA defines abnormalities in albumin excretion as follows: Albuminuria Category Result (mcg/mg creatinine) Normal to Mildly increased <30 Moderately increased 30-299 Severely increased > OR = 300 The ADA recommends that at least two of three specimens collected within a 3-6 month period be abnormal before considering a patient to be within a diagnostic category. Urine Urine specimen / Unknown 01/30/2021 11:22 AM EDT 01/30/2021 11:22 AM EDT [facility]er En[facility] URINE AMBULATORY Final Resul t [facility] [address] [address], [facility] [address] [address] from Last 3 Months or Most Recently Relevant to Health Maintenance Insurance [employer] [place] [id number] Care Teams Gunsmith Apprentice Relationship Specialty Start Date End Date Eagle Aguirre PA-C [address] [place] [address] PCP - General FAMILY MEDICINEJAMES 03/31/24
== END 2024-11-09 14:34 | disposition home or self-care (01) ==
LOC: HO.HMCH 13:41
DX: E11.65 Type 2 diabetes mellitus with hyperglycemia (principal); I25.5 Ischemic cardiomyopathy; E66.811 Obesity, class 1; Z68.34 Body mass index [BMI] 34.0-34.9, adult; I25.10 Atherosclerotic heart disease of native coronary artery without angina pectoris; J45.909 Unspecified asthma, uncomplicated; J32.9 Chronic sinusitis, unspecified; L72.0 Epidermal cyst; I10 Essential (primary) hypertension; E78.2 Mixed hyperlipidemia

== ENCOUNTER → 2024-11-09 13:40 | Outpatient (BNVA) | payer OTHER, SELFPAY | DX: E11.65 Type 2 diabetes mellitus with hyperglycemia (principal); I25.10 Atherosclerotic heart disease of native coronary artery without angina pectoris; I25.5 Ischemic cardiomyopathy; J45.909 Unspecified asthma, uncomplicated; J32.9 Chronic sinusitis, unspecified; L72.0 Epidermal cyst; I10 Essential (primary) hypertension; E66.811 Obesity, class 1; E78.2 Mixed hyperlipidemia; Z87.891 Personal history of nicotine dependence; Z79.899 Other long term (current) drug therapy | CPT/HCPCS: 96127; 99202 ==

== ENCOUNTER 2024-11-10 10:00 | Outpatient (REF) | payer OTHER, SELFPAY ==
--- OUTSIDE RECORDS SUMMARY | 2024-11-10 10:21 | XMS_ITS | Clinical Summary ---
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 Phone Eagle Aguirre PA-C Primary [...] hyperglycemia, with long-term current use of insulin ([facility]),Hyperlipide freda LDL goal <70 Take 1 Tablet by mouth nightly at bedtime For cholesterol 90 Tablet 1 07/28/19 25 Active sacubitriL-valsartan (ENTRESTO) 49-51 mg tabIndications:Heart failure with reduced ejection fraction ([facility]) Take 1 Tablet by mouth 2 (two) times daily (Prescribed by [facility] cardiology) 07/28/19 25 Active carvediloL (COREG) 25 mg tabletIndications:He art failure with reduced ejection fraction ([facility]) Take 1 Tablet by mouth 2 (two) times daily (Prescribed by [facility] cardiology) 07/28/19 25 Active blood-glucose meter monitoring kitIndications:Type 2 diabetes mellitus with hyperglycemia, with long-term current use of insulin ([facility]) Use to test blood glucose twice daily. (Freestyle Lite) 1 Each 07/28/19 25 Active blood sugar diagnostic stripsIndications:Ty pe 2 diabetes mellitus with hyperglycemia, with long-term current use of insulin ([facility]) Use to test blood glucose twice daily. (Freestyle Lite) 100 Each 07/28/19 25 Active lancets (FREESTYLE LANCETS) 28 gaugeIndications:Typ e 2 diabetes mellitus with hyperglycemia, with long-term current use of insulin ([facility]) Use to test blood glucose twice daily. (Freestyle Lite) 100 Each 07/28/19 25 Active alcohol swabsIndications:Typ e 2 diabetes mellitus with hyperglycemia, with long-term current use of insulin ([facility]) Use to test blood glucose twice daily. 100 Each 07/28/19 25 Active blood-glucose,receiv er,cont (FREESTYLE GIORGI 3 READER) miscIndications:Type 2 diabetes mellitus with hyperglycemia, with long-term current use of insulin ([facility]) Use to test blood glucose continuously. (Freestyle Giorgi 3 reader) 1 Each 07/28/19 25 Active blood-glucose sensor (FREESTYLE GIORGI 3 SENSOR) deviIndications:Type 2 diabetes mellitus with hyperglycemia, with long-term current use of insulin ([facility]) Apply to back of upper arm every 14 days. Use to test blood glucose continuously (Freestyle Giorgi 3 sensor) 2 Each 11 07/28/19 25 Active SITagliptin phosphate (JANUVIA) 100 mg tabletIndications:Ty pe 2 diabetes mellitus with hyperglycemia, with long-term current use of insulin ([facility]),Type 2 diabetes mellitus with microalbuminuria ([facility]) Take 1 Tablet by mouth once daily [...] (BMI) of 36.0 to 36.9 in adult ([facility]) 07/27/2024 Type 2 diabetes mellitus wit h hyperglycemia, with long-term current use of insulin ([facility]) 07/27/2024 H/O acute myocardial infarction of inferior wall 07/15/2024 Ischemic cardiomyopathy 07/15/2024 Mild intermittent asthma without complication ([facility]) 09/17/2021 Arthralgia 04/21/2021 Heart failure with reduced e jection fraction ([facility]) 04/21/2021 [facility] (09/17/[facility]21[facility] Hyperlipidemia LDL goal <70 04/21/2021 S/P lobectomy of lung 04/21/2021 Interstitial lung disease ([facility]) 2020 Overview (04/21/2021): Based on previous chext x-rays done at [facility] NSTEMI (non-ST elevated myoc ardial infarction) ([facility]) 04/21/2021 Type 2 diabetes mellitus wit h microalbuminuria ([facility]) 10/02/2015 Overview (07/27/2024): DM dx: ~[id number] at [facility] [place]ama Glucometer: Freestyle Lite (issued Freestyle Giorgi 3) Current Diabetes RX: Ozempic 5 mg once weekly every JA-I/ARB: Entresto 49/51 mg twice daily (prescribed by [facility] cardiology) Statin: Atorvastatin 80 mg daily every evening Pneumococcal vaccine: PCV20 (05/26/24) Diabetes foot exam: Never Diabetes retinal exam: 07/29/24 at [facility] No active diabetic retinopathy [...] RX today Essential hypertension 10/02/2015 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 Nephrolithiasis 10/02/2015 Overview (10/02/2015): Last episode ~2012, went to [facility] Chronic pain of both shoulders 10/02/2015 Overview (10/02/2015): Pt says that he had calcium deposits. Was following at [facility]. Using Naproxen prn Allergic rhinitis 10/02/2015 Resolved Problems Problem Noted Date Diagnosed Date Resolved Date Uncontrolled type 2 diabetes mellitus with hyperglycemia ([facility]) 04/21/2021 07/27/2024 Dyslipidemia 10/02/2015 07/27/2024 Morbid obesity ([facility]) 10/02/2015 07/27/2024 Encounters Date Type Department Care Team Description 10/02/2024 Interim Notes [address] [address] Gilda Mccollum MA from Last 3 Months [...] Colorectal Cancer Screening 03/06/2023 FIT/gFOBT 03/06/2023 03/06/2022 [id number] ( season) 2023 08/14/2020, 07/22/2020 Depression Annual [...] 2 diabetes mellitus with microalbuminuria, 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 Dyslipidemia Morbid obesity (HCC-CMS) Hypertriglyceridemia 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, without long-term current use of insulin LIPID PANEL Routine 02/03/2023 11:59 AM EDT Heart failure with reduced ejection fraction (HCC-CMS) Uncontrolled type 2 diabetes mellitus with hyperglycemia (HCC-CMS) Type 2 diabetes mellitus with microalbuminuria, unspecified whether group home insulin use Dyslipidemia Morbid obesity (HCC-CMS) Hypertriglyceridemia 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, without long-term current use of insulin FECAL GLOBIN BY IMMUNOCHEMISTRY (FIT) Routine 03/06/2022 1:17 PM EST Encounter for colorectal cancer screening MICROALBUMIN/CREATININE RATIO, URINE, RANDOM Routine 01/30/2021 11:22 AM EDT Type 2 diabetes mellitus with microalbuminuria, without long-term current use of insulin ([facility]) from Last 3 Months or Most Recently [...] A1C 11.9(H) <5.7 % of total Hgb [employer] [facility] Comment: For someone without known diabetes, a [...] children. MEAN PLASMA GLUCOSE 346 mg/dL (calc) [facility] Blood Blood / Unknown 06/25/2023 2 :14 PM EST 06/25/2023 2:14 PM EST Tien Francisco PharmD LAB - BLOOD D RAW Final Result [employer] [address] [place] [address], [address] [facility] [place] [phone] * (ABNORMAL) LIPID PANEL (02/03/2023 11:59 AM EDT) [facility] Signature CHOLESTEROL, TOTAL 186 <200 mg/dL [facility] HDL CHOLESTEROL 31(L) > OR = 40 mg/dL [facility] TRIGLYCERIDES 429(H) <150 mg/dL [facility] Comment: If a non-fasting specimen was collected, consider repeat triglyceride testing on a fasting specimen if clinically indicated. Rachel et al. J. of Clin. Lipidol. 2015;9:129-169. LDL-CHOLESTEROL See Note [facility]UES [facility] Comment: LDL cholesterol not calculated. Triglyceride levels [...] LDL-C. Nelson SS et al. LIZET. 2013;310(19): 7735-0950 (http://education.Somewhere/faq/HBN734) CHOL/HDLC RATIO 6.0(H) <5.0 (calc) [facility] NON-HDL CHOLESTEROL 155(H) <130 mg/dL (calc) [facility] Comment: For patients with diabetes plus 1 major ASCVD risk factor, treating to a non-HDL-C goal of <100 mg/dL (LDL-C of <70 mg/dL) is considered a therapeutic option. Blood Blood / Unknown 02/03/2023 1 1:59 AM EDT 02/03/2023 11:59 AM EDT Nilo RAMIREZ LAB - BLOOD DRAW Final Result [employer] [facility] [address] [address], [facility] [address] [address] * (ABNORMAL) COMPREHENSIVE METABOLIC PANEL (02/03/2023 11:59 AM EDT) GLUCOSE 383(H) 65 - 99 mg/dL [employer] [facility] Comment: Fasting reference interval For someone without known diabetes, a glucose value >125 mg/dL indicates that they may have diabetes and this should be confirmed with a follow-up test. UREA NITROGEN (BUN) 20 7 - 25 mg/dL [employer] [facility] CREATININE (blood) 1.30 0.70 - 1.30 mg/dL [facility] EGFR 64 > OR = 60 mL/min/1. 73m2 [facility] BUN/CREATININE RATIO SEE NOTE: [facility] Comment: Not Reported: BUN and Creatinine are within reference range. SODIUM 133(L) 135 - 146 mmol/L [facility] POTASSIUM 4.5 3.5 - 5.3 mmol/L [facility] CHLORIDE 97(L) 98 - 110 mmol/L [facility] CARBON DIOXIDE 26 20 - 32 mmol/L [facility] CALCIUM 8.9 8.6 - 10.3 mg/dL [facility] PROTEIN, TOTAL 6.9 6.1 - 8.1 g/dL [facility] ALBUMIN 4.0 3.6 - 5.1 g/dL [facility] GLOBULIN 2.9 1.9 - 3.7 g/dL (calc) [facility] ALBUMIN/GLOBULI N RATIO 1.4 1.0 - 2.5 (calc) [facility] BILIRUBIN, TOTAL 0.8 0.2 - 1.2 mg/dL [facility] ALKALINE PHOSPHATASE 50 35 - 144 U/L [facility] AST 16 10 - 35 U/L [facility] ALT 25 9 - 46 U/L [facility] Blood Blood / Unknown 02/03/2023 1 1:59 AM EDT 02/03/2023 11:59 AM EDT us Nilo RAMIREZ LAB - BLOOD DRAW Edited Result - Final Performing Organization Address [facility] Co de Phone Number [facility] [address] [address], [facility] [address] [address] * FECAL GLOBIN BY IMMUNOCHEMISTRY (FIT) (03/06/2022 1:17 PM EST) FECAL GLOBIN BY IMMUNOCHEMISTRY See Note [facility] Comment: FECAL GLOBIN BY IMMUNOCHEMISTRY Micro Number: [id number] Test Status: Final Specimen Source: Insure (tm) [...] AMB ULATORY Final Result Performing Organization Address [facility] Co de Phone Number [facility] [address] [address], [facility] [address] [address] * MICROALBUMIN/CREATININE RATIO, URINE, RANDOM (01/30/2021 11:22 AM EDT) CREATININE, RANDOM URINE 91 20 - 320 mg/dL [facility] MICROALBUMIN 2.5 mg/dL Yo que [employer] [facility] Comment: Reference Range Not established MICROALBUMIN/CREA TININE RATIO, RANDOM URINE 27 <30 mcg/mg creat [facility] Comment: The ADA [...] EDT 01/30/2021 11:22 AM EDT Greer Enriquez [employer] LAB URINE AMBULATORY Final Resul t [employer] [address] [address], [employer] [facility] [address] [address] from Last 3 Months or Most Recently Relevant to Health Maintenance Insurance [employer] [place] [id number] Care Teams Aircraft Layout Worker Relationship Specialty Start Date End Date Eagle Aguirre PA-C [address] [place] [address] PCP - General FAMILY MEDICINEJAMES 03/31/24
--- OUTSIDE RECORDS SUMMARY | 2024-11-10 10:21 | XMS_ITS | Clinical Summary ---
Author Organization [address] Address [address] [place] [address] Phone Care Team Providers Care Swatch Maker Name Role Phone Shilo Vasquez MD Primary Care Provider [phone] Surgical History Surgery Date Site/Laterality Comments OTHER SURGICAL HISTORY 1985 PROCEDURE: [place] BRONCHOSCOPY W/TRANSBRONCHIAL LUNG BX 1 LOBE; COMMENT: granuloma Medical History Medical History Date Comments Chronic interstitial lung di sease ([facility] V24, [facility] V28) DX:Chronic interstitial raven g disease (HCC); COMMENT: Heart failure w/ reduced EF. Joint pain DX:Joint pain S/P partial lobectomy of lung DX :S/P partial lobectomy of lung; COMMENT: partial left Obesity DX:Obesity Bronchitis DX:Bronchitis Essential hypertension DX:Essent ial hypertension Hyperlipidemia DX:Hyperlipidemi a Family history of cardiovasc ular disease DX:Family history of cardiov ascular disease Type 2 diabetes mellitus wit hout complication ([facility] V24, [facility] V28) 09/30/2020 DX:Type 2 diabetes mellitus without complication ([facility]) Carotid artery occlusion 01/03/2021 DX:Breaux tid artery occlusion; COMMENT: Chronic, R carotid. ST elevation myocardial infa rction involving left anterior descending (LAD) coronary artery ([facility] V24, [facility] V28) 09/30/2020 DX:ST elevation myocardial i nfarction involving left anterior descending (LAD) coronary artery ([facility]) Family History Medical History Relation Name Comments [...] mellitus with renal manifestations, uncontrolled(250.42) (CMS/HCC V24, [facility] V28) LIPID PANEL WITH REFLEX TO DIRECT LDL Routine 07/17/2024 9:02 AM EDT Coronary atherosclerosis of [place] coronary artery MICROALBUMIN CREATININE URINE RATIO Routine 03/30/2024 11:11 AM EST Hyperlipidemia Essential hypertension, benign Coronary atherosclerosis of [place] coronary artery Heart failure, systolic ([facility] V24, [facility] V28) Referral of patient without examination or treatment COMPREHENSIVE METABOLIC PANEL Routine 03/30/2024 11:05 AM EST Hyperlipidemia Essential hypertension, benign Coronary atherosclerosis of [place] coronary artery Heart failure, systolic ([facility] V24, [facility] V28) Referral of patient without examination or treatment from Last 3 Months or Most Recently Relevant to Health Maintenance Results * (ABNORMAL) Hemoglobin A1c (07/27/2024 10:12 AM EDT) Pathologist [facility] Hemoglobin A1C 9.6(H) <6.5 % LAB CHEMISTRY METHOD 07/27/2024 2:20 PM EDT [facility] Mean Bld Glu Estim. 229 mg/dL LAB CHEMISTRY METHOD 07/27/2024 2:20 PM EDT [facility] Blood Venous blood specimen / Unknown Venipuncture / Unknown 07/27/2024 10:12 AM EDT 07/27/2024 10:22 AM EDT us Rajendra Eaton PharmD LAB BLOOD ORDERABLES Lesly l Result [facility] [address] [place] [address], [place] [phone] * Lipid panel with reflex to direct LDL (07/17/2024 9:02 AM EDT) Pathologist [facility] Cholesterol 156 0 - 200 mg/dL LAB CHEMISTRY METHOD 07/17/2024 12:44 PM EDT [facility] Triglycerides 134 0 - 150 mg/dL LAB CHEMISTRY METHOD 07/17/2024 12:44 PM EDT [facility] HDL 41 >=40 mg/dL LAB CHEMISTRY METHOD 07/17/2024 12:44 PM EDT [facility] LDL Calculated 88 0 - 100 mg/dL LAB CHEMISTRY METHOD 07/17/2024 12:44 PM EDT [facility] VLDL Cholesterol Norbert 26.8 mg/dL LAB CHEMISTRY METHOD 07/17/2024 12:44 PM EDT [facility] Non HDL Chol. (LDL+VLDL) 115 <145 mg/dL LAB CHEMISTRY METHOD 07/17/2024 12:44 PM EDT [facility] Chol/HDL Ratio 3.8 0.0 - 4.4 LAB CHEMISTRY METHOD 07/17/2024 12:44 PM EDT [facility] Blood Venous blood specimen / Unknown Venipuncture / Unknown 07/17/2024 9:02 AM EDT 07/17/2024 10:47 AM EDT us Jay Sams MD LAB BLOOD ORDERABLES Final Resul t Performing Organization Address City/[facility]/ZIP Co de Phone Number [facility] [address] [place] [address], * (ABNORMAL) Microalbumin creatinine urine ratio (03/30/2024 11:11 AM EST) Creatinine, Urine 55.0 mg/dL LAB CHEMISTRY METHOD 03/30/2024 12:19 PM EST [facility] Microalb, Ur 21.5 0.0 - 29.0 mg/L LAB CHEMISTRY METHOD 03/30/2024 12:19 PM EST [facility] Microalb/Creat Ratio 39(H) <30 mg/g creat LAB CHEMISTRY METHOD 03/30/2024 12:19 PM EST [facility] Urine Urine specimen obtained by clean catch procedure / Unknown Non-blood Collection / Unknown 03/30/2024 11:11 AM EST 03/30/2024 11:19 AM EST us Susan Mejia NP LAB URINE ORDERABLE S Final Result Performing Organization Address City/[facility]/ZIP Co de Phone Number [facility] [address] [place] [address], [place] [phone] * (ABNORMAL) Comprehensive metabolic panel (03/30/2024 11:05 AM EST) Sodium 135 133 - 145 mmol/L LAB CHEMISTRY METHOD 03/30/2024 12:12 PM [facility] Potassium 4.2 3.5 - 5.5 mmol/L LAB CHEMISTRY METHOD 03/30/2024 12:12 PM [facility] Chloride 103 96 - 110 mmol/L LAB CHEMISTRY METHOD 03/30/2024 12:12 PM [facility] CO2 27 21 - 32 mmol/L LAB CHEMISTRY METHOD 03/30/2024 12:12 PM [facility] Anion Gap 5 3 - 11 LAB CHEMISTRY METHOD 03/30/2024 12:12 PM [facility] Glucose 361(H) 70 - 100 mg/dL LAB CHEMISTRY METHOD 03/30/2024 12:12 PM [facility] BUN 18 5 - 25 mg/dL LAB CHEMISTRY METHOD 03/30/2024 12:12 PM [facility] Creatinine 1.13 0.70 - 1.30 mg/dL LAB CHEMISTRY METHOD 03/30/2024 12:12 PM [facility] eGFR 74 >=60 mL/min/1. 73m2 LAB CHEMISTRY METHOD 03/30/2024 12:12 PM [facility] Comment:Calculation based on the Chronic Kidney Disease Epidemiology Collaboration (CKD-EPI) equation refit without adjustment for race. BUN/Creatinine Ratio 15.9 LAB CHEMISTRY METHOD 03/30/2024 12:12 PM [facility] Calcium 9.2 8.5 - 10.5 mg/dL LAB CHEMISTRY METHOD 03/30/2024 12:12 PM [facility] AST (SGOT) 22 10 - 42 unit/L LAB CHEMISTRY METHOD 03/30/2024 12:12 PM [facility] ALT (SGPT) 49 10 - 60 unit/L LAB CHEMISTRY METHOD 03/30/2024 12:12 PM EST [facility] Alkaline Phosphatase 69 42 - 121 unit/L LAB CHEMISTRY METHOD 03/30/2024 12:12 PM [facility] Total Protein 7.2 6.0 - 8.0 g/dL LAB CHEMISTRY METHOD 03/30/2024 12:12 PM EST [facility] Albumin 3.9 3.2 - 5.0 g/dL LAB CHEMISTRY METHOD 03/30/2024 12:12 PM [facility] Total Bilirubin 0.8 0.0 - 1.4 mg/dL LAB CHEMISTRY METHOD 03/30/2024 12:12 PM [facility] Blood Venous blood specimen / Unknown Venipuncture / Unknown 03/30/2024 11:05 AM EST 03/30/2024 11:20 AM EST us Susan Mejia NP LAB BLOOD ORDERABLE S Final Result [facility] [address] [place] [address], from Last 3 Months or Most Recently Relevant to Health Maintenance Insurance [facility] Member Subscriber Plan / Payer (Ef fective 2023-Present) Name:Mohsen Pearce Relation to Subscriber:Self Name:Mohsen Pearce Payer ID:[id number] Group ID:[id number] Type:Not on file Address: [place] [address] [place] [id number] [facility] MEDICARE Member Subscriber Plan / Payer (Ef fective 2023-Present) Name:Mohsen Pearce Relation to Subscriber:Self Name:Mohsen Pearce Payer ID:[id number] Group ID:[id number] Type:Not on file Address: [place] [facility] [place] [phone] Care Teams Swatch Maker Relationship Specialty Start Date End Date Shilo Vasquez MD [address] [place] [id number] PCP - General Internal Medicine 08/24/21
[2024-11-10 10:30] LABS: Appearance Urine Clear; Glucose Urine UA >=1000 mg/dL (Negative); PH 5.5 (5.0-9.0); Specific Gravity - Urine >= 1.030 (1.005-1.025); UMIC TRIGGER UACC YES
[2024-11-10 11:12] LABS: Hematocrit 49.6 % (42.0-52.0); Hemoglobin 16.6 g/dl (14.0-18.0); Imm Gran Abs Auto 0.03 X10*3/uL (0.00-0.03); Imm Gran Pct Auto 0.3 % (0.0-0.4); Lymphocytes Absolute Auto 1.9 X10*3/uL (1.2-4.9); MANUAL DIFF FLAG NO; Mean Corpuscular HGB Conc 33.5 g/dl (31.0-36.0); Mean Corpuscular Hemoglobin 29.0 pg (27.0-33.0); Mean Corpuscular Volume 86.7 fL (80.0-98.0); NRBC Abs Auto 0.000 X10*3/uL (0.0-0.012); NRBC Pct Auto 0.0 /100WBC (0.0-0.2); Platelet Count 192 X10*3/uL (160-400); Red Blood Count 5.72 X10*6/uL (4.60-5.80); White Blood Count 9.3 X10*3/uL (4.8-10.8)
[2024-11-10 11:18] LABS: Hemoglobin A1C 341.4567 umol/L; Total Hemoglobin (HGBA1C) 4288.3022 umol/L
[2024-11-10 12:04] LABS: B Type Natriuretic Peptide 80 pg/mL (<100)
[2024-11-10 12:25] LABS: Alanine Aminotransferase 35 U/L (0-40); Albumin Level 4.2 g/dL (3.5-5.0); Alkaline Phosphatase 55 U/L (39-117); Anion Gap 11 (12-20); Aspartate Amino Transferase 30 U/L (5-37); Blood Urea Nitrogen 20 mg/dL (9-16); Calcium 9.0 mg/dL (8.4-10.2); Carbon Dioxide 26 mmol/L (22-29); Chloride 103 mmol/L (96-108); Cholesterol 169 mg/dL (<200); Estimated Glomerular Filt Rate > 60; HDL Cholesterol 34 mg/dL (>40); Potassium 4.2 mmol/L (3.3-5.1); Sodium 136 mmol/L (135-145); Total Protein 6.9 g/dL (6.5-8.0); Triglycerides 200 mg/dL (<150)
[2024-11-10 12:47] LABS: PSA,Total (Free>4and<10) 0.75 ng/mL (0.00-4.00)
== END 2024-11-10 10:01 | disposition home or self-care (01) ==
LOC: HO.LAB 10:00
DX: I25.5 Ischemic cardiomyopathy (principal); I25.10 Atherosclerotic heart disease of native coronary artery without angina pectoris; E11.9 Type 2 diabetes mellitus without complications; E11.65 Type 2 diabetes mellitus with hyperglycemia; J45.909 Unspecified asthma, uncomplicated; Z12.5 Encounter for screening for malignant neoplasm of prostate
CPT/HCPCS: 36415; 80053; 80061; 81001; 82306; 83036; 83880; 84153; 84443; 85025

== ENCOUNTER 2024-12-06 09:37 | Outpatient (AMB) | payer OTHER, SELFPAY ==
--- NOTE | 2024-12-06 09:49 | A.OFFVIS_ITS ---
Vital Signs 12/06/24 09:50 Height 5 ft 5 in Weight 202 lb 13.204 oz BMI 33.7 BP 120/80 Blood Pressure Location Lt brachial Position Sitting Pulse 78 Intake Visit Reasons: 6m/ echo/labs Intake Note: 6 month follow-up after echo feeling ok Demurrage Man Required: No Allergies levaquin Allergy (Severe, Uncoded 11/09/24 13:54) rash Medication List - Last Reconciled 12/06/24 by Jay Sams MD albuterol sulfate 90 mcg/actuation (Ventolin HFA) 2 puffs inhalation Q4-6H PRN atorvastatin (Lipitor) 80 mg PO BEDTIME carvedilol 25 mg PO BID fenofibrate micronized 134 mg PO DAILY fluticasone propionate 50 mcg/actuation 1 spray intranasal DAILY sacubitril-valsartan 49-51 mg (Entresto) 1 tab PO BID semaglutide (Ozempic) 0.5 mg (0.736 mL) subcut QWEEK 4 weeks sitagliptin phosphate (Januvia) 100 mg PO DAILY HPI Comments Details: Mohsen comes for follow-up. He continues to have exertional shortness of breath NYHA class 2. Denies any orthopnea, PND, leg edema. Takes all his medications. He said his blood pressure is variable. At some point time the blood pressure is low and he feels lightheaded and has to lay down. At other times his blood pressures are slightly on the high side. However most of the time a blood pressures in the normal range. He denies any exertional chest pain. Most recent LDL was 95 mg/dL. He is currently not on aspirin therapy for unclear reasons. Taking all other medications regularly. His echocardiogram shows worsening LV ejection fraction 30-35% compared to prior LV ejection fraction 50%. FORMERLY [facility] Medical History Lung granuloma Essential hypertension NSTEMI (non-ST elevated myocardial infarction) Interstitial lung disease ST elevation myocardial infarction (STEMI) of anterior wall Ischemic cardiomyopathy CAD (coronary artery disease) Surgical History Status post lobectomy of lung Stented coronary artery Family History Father Heart problem Mother COPD (chronic obstructive pulmonary disease) Social History Housing: Apartment Alcohol intake: never Patient Tobacco Use Status: Former Tobacco user e-Cigarette/Vaping Use: Never Used service: No Current occupational status: retired Current occupational exposures/hazards: No Cognitive needs: No Hearing needs: No Vision needs: Yes Review of Systems Const Denies chills, Denies fatigue, Denies fever(s), Denies frequent falls, Denies weakness, Denies weight gain and Denies weight loss ENT Denies dizziness Card Denies chest pain, Denies leg edema, Denies lightheadedness, Denies palpitations, Denies dyspnea, Denies dyspnea on exertion, Denies orthopnea and Denies other (loss of consciousness) Resp Denies cough, Denies dyspnea and Denies dyspnea on exertion GI Denies hematochezia and Denies change in stool character Musc Denies abnormal gait, Denies muscle weakness, Denies numbness, Denies radiating pain into limb and Denies tingling Neuro Denies abnormal gait, Denies dizziness, Denies frequent falls, Denies numbness, Denies tingling and Denies weakness Endo Denies fatigue and Denies palpitations Physical Exam Vital Signs: Last Vital Signs Pulse 78 12/06/24 09:50 BP 120/80 12/06/24 09:50 BMI result Body Mass Index 33.7 Const General: cooperative, comfortable, no acute distress, alert, awake, Physically active and well groomed Nutritional Appearance: obese Orientation/consciousness: patient oriented x3 Limitations: no limitations HEENT Head: Yes normocephalic and Yes atraumatic Neck Neck: Yes trachea midline, Yes supple and Yes no JVD Resp Effort & Inspection: normal respiratory effort Auscultation: clear to auscultation bilaterally Cardio Jugular venous distension: no JVD Palpation: normal PMI Rate: regular rate Rhythm: regular rhythm Heart sounds: S1 normal heart sound present, S2 normal heart sound present, no click, no gallops, no murmurs and no rubs GI Auscultation: normal bowel sounds Skin General skin exam: no rashes or lesions noted Neuro General: patient oriented x3 and no focal motor deficits Extrem General: Yes no clubbing, cyanosis or edema Psych Appearance: grossly normal Assessment & Plan Assessment & Plan (1) Ischemic cardiomyopathy: Code(s): I25.5 - Ischemic cardiomyopathy Category: Medical Plan: Moderate to severe LV systolic dysfunction secondary to ischemic cardiomyopathy. Question related to negative remodeling versus development of progressive coronary artery disease. He has known chronic total occlusion of RCA. He had stents in the LAD and circumflex artery from 2020. Such as cardiac catheterization to further evaluate for coronary anatomy any progressive coronary disease that may need alternative revascularization strategies due to worsening LV ejection fraction. If not then will continue pursue with medical therapy. He is currently on carvedilol and Entresto therapy without any overt signs of heart failure. Will continue the same. Can not uptitrate further medications due to occasional episodes of low blood pressure and lightheadedness. Overall blood pressure is well optimized. Signs and symptoms of heart failure were discussed. Follow-up echocardiogram in 6 weeks time. If he has persistent severe LV systolic dysfunction below 35% LVEF will need to consider defibrillator placement for primary prevention. This was discussed with him. He is also concerned about recurrent development of pneumonia which has been pursued through office. Consider pulmonary consultation. (2) CAD (coronary artery disease): Comment: Stented LAD and circumflex artery in 2020, chronic total occlusion of RCA 100% Code(s): I25.10 - Atherosclerotic heart disease of [place] coronary artery without angina pectoris Category: Medical Qualifiers: Coronary Disease-Associated Artery/Lesion type: [place] artery [place] vs. transplanted heart: [place] heart Associated angina: without angina Qualified Code(s): I25.10 - Atherosclerotic heart disease of [place] coronary artery without angina pectoris Plan: CAD as mentioned with prior stenting of the LAD and circumflex artery in his setting of acute anterior STEMI with known chronic total occlusion of RCA. Further evaluate for progressive coronary disease with cardiac catheterization. Meanwhile continue aggressive medical therapy. He should be on aspirin therapy for life and this was discussed with him. Continue current blood pressure regimen. His LDL is not well optimized have taken the liberty to add ezetimibe to his regimen to target goal LDL less than 70 mg/dL. Continue aggressive diabetes management and weight loss program. He understands agrees. Will follow up in the clinic in 6 weeks time after cardiac catheterization echocardiogram. Thank you for allowing me to partake in his care Orders: Orders CA Echo Limited 6 Weeks I25.5 - Ischemic cardiomyopathy, I42.9 - Cardiomyopathy, unspecified Cardiac Cath LT Diagnostic 4 Weeks I25.5 - Ischemic cardiomyopathy Basic Metabolic Panel Today I25.5 - Ischemic cardiomyopathy Complete Blood Count no Diff Today I25.5 - Ischemic cardiomyopathy Prothrombin Time INR Today I25.5 - Ischemic cardiomyopathy Lipid Panel 6 Weeks I25.10 - Atherosclerotic heart disease of [place] coronary artery without angina pectoris Medications: New aspirin (Ecotrin Low Strength) 81 mg PO DAILY 30 tabs 5RF I25.5 - Ischemic cardiomyopathy ezetimibe 10 mg PO DAILY 30 tabs 5RF I25.5 - Ischemic cardiomyopathy Coding Level of Care Code Est Pt Level 4 (32128) Complex EM visit Add On G2211 Diagnoses Ischemic cardiomyopathy I25.5 Coronary artery disease involving [place] coronary artery of [place] heart without angina pectoris I25.10 Coronary Disease-Associated Artery/Lesion type: [place] artery [place] vs. transplanted heart: [place] heart Associated angina: without angina
[2024-12-06 09:50] VITALS: BP 120/80; PULSE 78; BMI 33.7
--- OUTSIDE RECORDS SUMMARY | 2024-12-06 10:05 | XMS_ITS | Clinical Summary ---
Author Organization [address] Address [address] [place] [address] Phone Care Team Providers Care [employer]ender [employer] Name Role Phone Shilo Vasquez MD Primary Care Provider [phone] Surgical History Surgery Date Site/Laterality Comments OTHER SURGICAL HISTORY 1985 PROCEDURE: NE BRONCHOSCOPY W/TRANSBRONCHIAL LUNG BX 1 LOBE; COMMENT: granuloma Medical History Medical History Date Comments Chronic interstitial lung di sease ([facility] V24, [facility] V28) DX:Chronic interstitial raven g disease (HCC); COMMENT: Heart failure w/ reduced EF. Joint pain DX:Joint pain S/P partial lobectomy of lung DX :S/P partial lobectomy of lung; COMMENT: partial left Obesity DX:Obesity Bronchitis DX:Bronchitis Essential hypertension DX:Essent ial hypertension Hyperlipidemia DX:Hyperlipidemi a Family history of cardiovasc ular disease DX:Family history of cardiov ascular disease Type 2 diabetes mellitus wit hout complication ([facility] V24, [facility] V28) 09/30/2020 DX:Type 2 diabetes mellitus without complication ([facility]) Carotid artery occlusion 01/03/2021 DX:[place] tid artery occlusion; COMMENT: Chronic, R carotid. ST elevation myocardial infa rction involving left anterior descending (LAD) coronary artery ([facility] V24, [facility] V28) 09/30/2020 DX:ST elevation myocardial i nfarction involving left anterior descending (LAD) coronary artery ([facility]) Family History Medical History Relation Name [...] COVID-19 Vaccine ( season) 2023 08/14/2020, 07/22/2020 RSV Immunization Adult Patients (1 - Risk 60-74 years 1-dose series) 2024 Depression Screening 04/26/2024 Influenza Vaccine (#1) 2024 Diabetes: Blood Sugar [...] type diabetes mellitus with renal manifestations, uncontrolled(250.42) ([facility] V24, [facility] V28) LIPID PANEL WITH REFLEX TO DIRECT LDL Routine 07/17/2024 9:02 AM EDT Coronary atherosclerosis of [place] coronary artery MICROALBUMIN CREATININE URINE RATIO Routine 03/30/2024 11:11 AM EST Hyperlipidemia Essential hypertension, benign Coronary atherosclerosis of [place] coronary artery Heart failure, systolic ([facility] V24, [facility] V28) Referral of patient without examination or treatment COMPREHENSIVE METABOLIC PANEL Routine 03/30/2024 11:05 AM EST Hyperlipidemia Essential hypertension, benign Coronary atherosclerosis of [place] coronary artery Heart failure, systolic ([facility] V24, [facility] V28) Referral of patient without examination or treatment from Last 3 Months or Most Recently Relevant to Health Maintenance Results * (ABNORMAL) Hemoglobin A1c (07/27/2024 10:12 AM EDT) Pathologist [facility] Hemoglobin A1C 9.6(H) <6.5 % LAB CHEMISTRY METHOD 07/27/2024 2:20 PM EDT [facility] Mean Bld Glu Estim. 229 mg/dL LAB CHEMISTRY METHOD 07/27/2024 2:20 PM EDT [facility] Blood Venous blood specimen / Unknown Venipuncture / Unknown 07/27/2024 10:12 AM EDT 07/27/2024 10:22 AM EDT us Rajendra Eaton PharmD LAB BLOOD ORDERABLES Lesly l Result [facility] [address] [place] [address], [place] [phone] * Lipid panel with reflex to direct LDL (07/17/2024 9:02 AM EDT) Pathologist [facility] Cholesterol 156 0 - 200 mg/dL LAB CHEMISTRY METHOD 07/17/2024 12:44 PM EDT [facility] Triglycerides 134 0 - 150 mg/dL LAB CHEMISTRY METHOD 07/17/2024 12:44 PM EDT [facility] HDL 41 >=40 mg/dL LAB CHEMISTRY METHOD 07/17/2024 12:44 PM EDT [facility] LDL Calculated 88 0 - 100 mg/dL LAB CHEMISTRY METHOD 07/17/2024 12:44 PM EDT [facility] VLDL Cholesterol Norbert 26.8 mg/dL LAB CHEMISTRY METHOD 07/17/2024 12:44 PM EDT [facility] Non HDL Chol. (LDL+VLDL) 115 <145 mg/dL LAB CHEMISTRY METHOD 07/17/2024 12:44 PM EDT [facility] Chol/HDL Ratio 3.8 0.0 - 4.4 LAB CHEMISTRY METHOD 07/17/2024 12:44 PM EDT [facility] Blood Venous blood specimen / Unknown Venipuncture / Unknown 07/17/2024 9:02 AM EDT 07/17/2024 10:47 AM EDT Jay Sams MD LAB BLOOD ORDERABLES Final Resul t Performing Organization Address City/[facility]/ZIP Co de Phone Number [facility] [address] [place] [address], [place] [phone] * (ABNORMAL) Microalbumin creatinine urine ratio (03/30/2024 11:11 AM EST) Creatinine, Urine 55.0 mg/dL LAB CHEMISTRY METHOD 03/30/2024 12:19 PM EST [facility] Microalb, Ur 21.5 0.0 - 29.0 mg/L LAB CHEMISTRY METHOD 03/30/2024 12:19 PM EST [facility] Microalb/Creat Ratio 39(H) <30 mg/g creat LAB CHEMISTRY METHOD 03/30/2024 12:19 PM EST [facility] Urine Urine specimen obtained by clean catch procedure / Unknown Non-blood Collection / Unknown 03/30/2024 11:11 AM EST 03/30/2024 11:19 AM EST us Susan Mejia NP LAB URINE ORDERABLE S Final Result Performing Organization Address City/[facility]/ZIP Co de Phone Number [facility] [address] [place] [address], [place] [phone] * (ABNORMAL) Comprehensive metabolic panel (03/30/2024 11:05 AM EST) Sodium 135 133 - 145 mmol/L LAB CHEMISTRY METHOD 03/30/2024 12:12 PM [facility] Potassium 4.2 3.5 - 5.5 mmol/L LAB CHEMISTRY METHOD 03/30/2024 12:12 PM [facility] Chloride 103 96 - 110 mmol/L LAB CHEMISTRY METHOD 03/30/2024 12:12 PM [facility] CO2 27 21 - 32 mmol/L LAB CHEMISTRY METHOD 03/30/2024 12:12 PM [facility] Anion Gap 5 3 - 11 LAB CHEMISTRY METHOD 03/30/2024 12:12 PM [facility] Glucose 361(H) 70 - 100 mg/dL LAB CHEMISTRY METHOD 03/30/2024 12:12 PM [facility] BUN 18 5 - 25 mg/dL LAB CHEMISTRY METHOD 03/30/2024 12:12 PM [facility] Creatinine 1.13 0.70 - 1.30 mg/dL LAB CHEMISTRY METHOD 03/30/2024 12:12 PM [facility] eGFR 74 >=60 mL/min/1. 73m2 LAB CHEMISTRY METHOD 03/30/2024 12:12 PM [facility] Comment:Calculation based on the Chronic Kidney Disease Epidemiology Collaboration (CKD-EPI) equation refit without adjustment for race. BUN/Creatinine Ratio 15.9 LAB CHEMISTRY METHOD 03/30/2024 12:12 PM [facility] Calcium 9.2 8.5 - 10.5 mg/dL LAB CHEMISTRY METHOD 03/30/2024 12:12 PM [facility] AST (SGOT) 22 10 - 42 unit/L LAB CHEMISTRY METHOD 03/30/2024 12:12 PM [facility] ALT (SGPT) 49 10 - 60 unit/L LAB CHEMISTRY METHOD 03/30/2024 12:12 PM EST [facility] Alkaline Phosphatase 69 42 - 121 unit/L LAB CHEMISTRY METHOD 03/30/2024 12:12 PM [facility] Total Protein 7.2 6.0 - 8.0 g/dL LAB CHEMISTRY METHOD 03/30/2024 12:12 PM [facility] Albumin 3.9 3.2 - 5.0 g/dL LAB CHEMISTRY METHOD 03/30/2024 12:12 PM [facility] Total Bilirubin 0.8 0.0 - 1.4 mg/dL LAB CHEMISTRY METHOD 03/30/2024 12:12 PM [facility] Blood Venous blood specimen / Unknown Venipuncture / Unknown 03/30/2024 11:05 AM EST 03/30/2024 11:20 AM EST us Susan Mejia [employer] DIRECTOR LAB BLOOD ORDERABLE S Final Result [facility] [address] [place] [address], from Last 3 Months or Most Recently Relevant to Health Maintenance Insurance [facility] Member Subscriber Plan / Payer (Ef fective 2023-Present) Name:Mohsen Pearce Relation to Subscriber:Self Name:Mohsen Pearce Payer ID:[id number] Group ID:[id number] Type:Not on file Address: [place] [address] [place] [id number] [facility] MEDICARE Member Subscriber Plan / Payer (Ef fective 2023-Present) Name:Mohsen Pearce Relation to Subscriber:Self Name:Mohsen Pearce Payer ID:[id number] Group ID:[id number] Type:Not on file Address: [place] [facility] [place] [phone] Care Teams [employer] Relationship Specialty Start Date End Date Shilo Vasquez MD [address] [place] [address] PCP - General Internal Medicine 08/24/21
--- OUTSIDE RECORDS SUMMARY | 2024-12-06 10:05 | XMS_ITS | Clinical Summary ---
Author Organization [facility] Address [address] [place] [address] Care Team Providers Care A And P Technician Name Role Phone Eagle Aguirre PA-C Primary [...] hyperglycemia, with long-term current use of insulin ([facility]),Hyperlipide freda LDL goal <70 Take 1 Tablet by mouth nightly at bedtime For cholesterol 90 Tablet 1 07/28/19 25 Active sacubitriL-valsartan (ENTRESTO) 49-51 mg tabIndications:Heart failure with reduced ejection fraction ([facility]) Take 1 Tablet by mouth 2 (two) times daily (Prescribed by [facility] cardiology) 07/28/19 25 Active carvediloL (COREG) 25 mg tabletIndications:He art failure with reduced ejection fraction ([facility]) Take 1 Tablet by mouth 2 (two) times daily (Prescribed by [facility] cardiology) 07/28/19 25 Active blood-glucose meter monitoring kitIndications:Type 2 diabetes mellitus with hyperglycemia, with long-term current use of insulin ([facility]) Use to test blood glucose twice daily. (Freestyle Lite) 1 Each 07/28/19 25 Active blood sugar diagnostic stripsIndications:Ty pe 2 diabetes mellitus with hyperglycemia, with long-term current use of insulin ([facility]) Use to test blood glucose twice daily. (Freestyle Lite) 100 Each 07/28/19 25 Active lancets (FREESTYLE LANCETS) 28 gaugeIndications:Typ e 2 diabetes mellitus with hyperglycemia, with long-term current use of insulin ([facility]) Use to test blood glucose twice daily. (Freestyle Lite) 100 Each 07/28/19 25 Active alcohol swabsIndications:Typ e 2 diabetes mellitus with hyperglycemia, with long-term current use of insulin ([facility]) Use to test blood glucose twice daily. 100 Each 07/28/19 25 Active blood-glucose,receiv er,cont (FREESTYLE GIORGI 3 READER) miscIndications:Type 2 diabetes mellitus with hyperglycemia, with long-term current use of insulin ([facility]) Use to test blood glucose continuously. (Freestyle Giorgi 3 reader) 1 Each 07/28/19 25 Active blood-glucose sensor (FREESTYLE GIORGI 3 SENSOR) deviIndications:Type 2 diabetes mellitus with hyperglycemia, with long-term current use of insulin ([facility]) Apply to back of upper arm every 14 days. Use to test blood glucose continuously (Freestyle Giorgi 3 sensor) 2 Each 11 07/28/19 25 Active SITagliptin phosphate (JANUVIA) 100 mg tabletIndications:Ty pe 2 diabetes mellitus with hyperglycemia, with long-term current use of insulin ([facility]),Type 2 diabetes mellitus with microalbuminuria ([facility]) Take 1 Tablet by mouth once daily [...] (BMI) of 36.0 to 36.9 in adult ([facility]) 07/27/2024 Type 2 diabetes mellitus wit h hyperglycemia, with long-term current use of insulin ([facility]) 07/27/2024 H/O acute myocardial infarction of inferior wall 07/15/2024 Ischemic cardiomyopathy 07/15/2024 Mild intermittent asthma without complication ([facility]) 09/17/2021 Arthralgia 04/21/2021 Heart failure with reduced e jection fraction ([facility]) 04/21/2021 [facility] Hyperlipidemia LDL goal <70 04/21/2021 S/P lobectomy of lung 04/21/2021 Interstitial lung disease ([facility]) 2020 Overview (04/21/2021): Based on previous chext x-rays done at [facility] NSTEMI (non-ST elevated myoc ardial infarction) ([facility]) 04/21/2021 Type 2 diabetes mellitus wit h microalbuminuria ([facility]) 10/02/2015 Overview (07/27/2024): DM dx: ~[phone] at [facility] Glucometer: Freestyle Lite (issued Freestyle Giorgi 3) Current Diabetes RX: Ozempic 5 mg once weekly every JA-I/ARB: Entresto 49/51 mg twice daily (prescribed by [facility] cardiology) Statin: Atorvastatin 80 mg daily every evening Pneumococcal vaccine: PCV20 (05/26/24) Diabetes foot exam: Never Diabetes retinal exam: 07/29/24 at [facility] No active diabetic retinopathy [...] RX today Essential hypertension 10/02/2015 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 Nephrolithiasis 10/02/2015 Overview (10/02/2015): Last episode ~2012, went to [facility] Chronic pain of both shoulders 10/02/2015 Overview (10/02/2015): Pt says that he had calcium deposits. Was following at [facility]. Using Naproxen prn Allergic rhinitis 10/02/2015 Resolved Problems Problem Noted Date Diagnosed Date Resolved Date Uncontrolled type 2 diabetes mellitus with hyperglycemia ([facility]) 04/21/2021 07/27/2024 Dyslipidemia 10/02/2015 07/27/2024 Morbid obesity ([facility]) 10/02/2015 07/27/2024 Encounters Date Type Department Care Team Description 10/02/2024 Interim Notes [address] [id number] Gilda Mccollum MA from Last 3 Months [...] Colorectal Cancer Screening 03/06/2023 FIT/gFOBT 03/06/2023 03/06/2022 [id number] ( season) 2023 08/14/2020, 07/22/2020 Depression Annual [...] Procedure Name Priority Date/Time Associated Diagnosis Comments EYE EXAM 08/02/2024 3:00 AM EDT HGBA1C W/MPG Routine 06/25/2023 2:14 PM EST Uncontrolled type 2 diabetes mellitus with hyperglycemia (HCC-CMS) COMPREHENSIVE METABOLIC PANEL Routine 02/03/2023 11:59 AM EDT Heart failure with reduced ejection fraction (HCC-CMS) Uncontrolled type 2 diabetes mellitus with hyperglycemia (HCC-CMS) Type 2 diabetes mellitus with microalbuminuria, unspecified whether assisted insulin use Dyslipidemia Morbid obesity (HCC-CMS) Hypertriglyceridemia 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, without long-term current use of insulin LIPID PANEL Routine 02/03/2023 11:59 AM EDT Heart failure with reduced ejection fraction (HCC-CMS) Uncontrolled type 2 diabetes mellitus with hyperglycemia (HCC-CMS) Type 2 diabetes mellitus with microalbuminuria, unspecified whether assisted insulin use Dyslipidemia Morbid obesity (HCC-CMS) Hypertriglyceridemia 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, without long-term current use of insulin FECAL GLOBIN BY IMMUNOCHEMISTRY (FIT) Routine 03/06/2022 1:17 PM EST Encounter for colorectal cancer screening MICROALBUMIN/CREATININE RATIO, URINE, RANDOM Routine 01/30/2021 11:22 AM EDT Type 2 diabetes mellitus with microalbuminuria, without long-term current use of insulin (HCC-CMS) from Last 3 Months or Most Recently Relevant to Health Maintenance Results * EYE EXAM (08/02/2024 3:00 AM EDT) 08/02/2024 3:00 AM EDT Eagle Aguirre PA-C OTHER Final Result * (ABNORMAL) HGBA1C W/MPG (06/25/2023 2:14 PM EST) HEMOGLOBIN A1C 11.9(H) <5.7 % of total Hgb [facility] Comment: For someone without known diabetes, a [...] children. MEAN PLASMA GLUCOSE 346 mg/dL (calc) [facility] Blood Blood / Unknown 06/25/2023 2 :14 PM EST 06/25/2023 2:14 PM EST Tien Francisco PharmD LAB - BLOOD D RAW Final Result [facility] [address] [address], [facility] [address] [place] [address] * (ABNORMAL) LIPID PANEL (02/03/2023 11:59 AM EDT) CHOLESTEROL, TOTAL 186 <200 mg/dL [facility] HDL CHOLESTEROL 31(L) > OR = 40 mg/dL [facility] TRIGLYCERIDES 429(H) <150 mg/dL [facility] Comment: If a non-fasting specimen was collected, consider repeat triglyceride testing on a fasting specimen if clinically indicated. Rachel et al. J. of Clin. Lipidol. 2015;9:129-169. LDL-CHOLESTEROL See Note QUES [facility] Comment: LDL cholesterol not calculated. Triglyceride levels greater than 400 mg/dL invalidate calculated LDL results. Reference range: <100 Desirable range <100 mg/dL for primary prevention; <70 mg/dL for patients with CHD or diabetic patients with > or = 2 CHD risk factors. LDL-C is now calculated using the Nelson-Elma calculation, which is a validated novel method providing better accuracy than the Friedewald equation in the estimation of LDL-C. Nelson JACINTO et al. LIZET. 2013;310(19): 7798-9171 (http://education.Bioph[employer]is.[employer]/faq/PKM454) CHOL/HDLC RATIO 6.0(H) <5.0 (calc) [facility] NON-HDL CHOLESTEROL 155(H) <130 mg/dL (calc) [facility] Comment: For patients with diabetes plus 1 major ASCVD risk factor, treating to a non-HDL-C goal of <100 mg/dL (LDL-C of <70 mg/dL) is considered a therapeutic option. Blood Blood / Unknown 02/03/2023 1 1:59 AM EDT 02/03/2023 11:59 AM EDT Nilo RAMIREZ LAB - BLOOD DRAW Final Result [employer] [facility] [address] [address], [employer] [facility] [address] [place] [address] * (ABNORMAL) COMPREHENSIVE METABOLIC PANEL (02/03/2023 11:59 AM EDT) GLUCOSE 383(H) 65 - 99 mg/dL [employer] Comment: Fasting reference interval For someone without known diabetes, a glucose value >125 mg/dL indicates that they may have diabetes and this should be confirmed with a follow-up test. UREA NITROGEN (BUN) 20 7 - 25 mg/dL [employer] [facility] CREATININE (blood) 1.30 0.70 - 1.30 mg/dL [employer] [facility] EGFR 64 > OR = 60 mL/min/1. 73m2 [employer] [facility] BUN/CREATININE RATIO SEE NOTE: 6 - [employer] [facility] Comment: Not Reported: BUN and Creatinine are within reference range. SODIUM 133(L) 135 - 146 mmol/L [employer] [facility] POTASSIUM 4.5 3.5 - 5.3 mmol/L [employer] CHLORIDE 97(L) 98 - 110 mmol/L [employer] [facility] CARBON DIOXIDE 26 20 - 32 mmol/L [employer] [facility] CALCIUM 8.9 8.6 - 10.3 mg/dL [employer] [facility] PROTEIN, TOTAL 6.9 6.1 - 8.1 g/dL [employer] [facility] ALBUMIN 4.0 3.6 - 5.1 g/dL [employer] GLOBULIN 2.9 1.9 - 3.7 g/dL (calc) [facility] ALBUMIN/GLOBULI N RATIO 1.4 1.0 - 2.5 (calc) [facility] BILIRUBIN, TOTAL 0.8 0.2 - 1.2 mg/dL [employer] ALKALINE PHOSPHATASE 50 35 - 144 U/L [employer] [facility] AST 16 10 - 35 U/L [employer] [facility] ALT 25 9 - 46 U/L [employer] [facility] Blood Blood / Unknown 02/03/2023 1 1:59 AM EDT 02/03/2023 11:59 AM EDT us Nilo RAMIREZ LAB - BLOOD DRAW Edited Result - Final Performing Organization Address [facility]/ZIP Co de Phone Number [employer] [facility] [address] [address], [employer] [address] [address] * FECAL GLOBIN BY IMMUNOCHEMISTRY (FIT) (03/06/2022 1:17 PM EST) FECAL GLOBIN BY IMMUNOCHEMISTRY See Note [employer] [facility] Comment: FECAL GLOBIN BY IMMUNOCHEMISTRY Micro Number: [id number] Test Status: Final Specimen Source: Insure (tm) [...] AMB ULATORY Final Result Performing Organization Address City/[facility] Co de Phone Number [employer] [facility] [address] [address], [employer] [facility] [address] [address] * MICROALBUMIN/CREATININE RATIO, URINE, RANDOM (01/30/2021 11:22 AM EDT) CREATININE, RANDOM URINE 91 20 - 320 mg/dL [employer] [facility] MICROALBUMIN 2.5 mg/dL [facility] Comment: Reference Range Not established MICROALBUMIN/CREA TININE RATIO, RANDOM URINE 27 <30 mcg/mg creat [employer] [facility] Comment: The ADA defines abnormalities in [...] EDT 01/30/2021 11:22 AM EDT Greer Enriquez PAPER CUTTING MACHINE OPERATOR LAB URINE AMBULATORY Final Resul t [facility] [address] [facility] [address] [place] [address], [employer] [facility] [address] [address] from Last 3 Months or Most Recently Relevant to Health Maintenance Insurance [employer] [place] [address] [place] [address] Care Teams A And P Technician Relationship Specialty Start Date End Date Eagle Aguirre PA-C [address] [place] [address] PCP - General FAMILY MEDICINEJAMES 03/31/24
== END 2024-12-06 10:22 | disposition home or self-care (01) ==
LOC: HO.HCS 09:38
PROVIDERS: Visit Provider Internal Medicine Cardiovascular Disease
DX: I25.5 Ischemic cardiomyopathy (principal); I25.10 Atherosclerotic heart disease of native coronary artery without angina pectoris
CPT/HCPCS: 99214; G2211

== ENCOUNTER → 2024-12-06 09:37 | Outpatient (BNVA) | payer OTHER, SELFPAY | PROVIDERS: Visit Provider Internal Medicine Cardiovascular Disease | DX: I25.5 Ischemic cardiomyopathy (principal); I25.10 Atherosclerotic heart disease of native coronary artery without angina pectoris | CPT/HCPCS: 99212 ==

== ENCOUNTER 2025-01-02 16:57 | Emergency (ER) | payer OTHER, SELFPAY ==
[2025-01-02 17:13] VITALS: BP 135/64; PULSE 101; RESP 18; TEMP 37.1; O2SAT 97; BMI 33.9
--- NOTE | 2025-01-02 17:14 | ED_ITS ---
HPI - General Adult General Chief complaint: Upper Respiratory Symptoms Stated complaint: sinus infection Time Seen by Provider: 01/02/25 20:48 History of Present Illness ED Provider: david HPI narrative: 59 M with 1 week of nasal discharge/facial pain and back discomfort myalgia. Patient denies sore throat neck pain denies any significant cough or shortness of breath no abdominal pain nausea vomiting he has felt generalized malaise PMH CAD/stents Related Data Home Medications ?Medication ?Instructions ?Recorded ?Confirmed fluticasone propionate 50 1 spray intranasal DAILY 09/1712/06/24 mcg/actuation nasal spray,suspension sitagliptin phosphate 100 mg 100 mg PO DAILY 05/31/24 12/06/24 tablet (Januvia) Previous Rx's ?Medication ?Instructions ?Recorded atorvastatin 80 mg tablet (Lipitor) 80 mg PO BEDTIME # 90 tabs 11/09/24 fenofibrate micronized 134 mg 134 mg PO DAILY #90 caps 11/09/24 capsule semaglutide 0.25 mg or 0.5 mg (2 0.5 mg (0.736 mL) sub cut QWEEK 4 11/09/24 mg/3 mL) subcutaneous pen injector weeks #3 mL (Ozempic) albuterol sulfate 90 mcg/actuation 2 puff inhalation Q 4-6H PRN 11/10/24 aerosol inhaler (Ventolin HFA) shortness of breath or wheezing #8.5 grams aspirin 81 mg tablet,delayed 81 mg PO DAILY #30 tabs 0 12/06/24 release (Ecotrin Low Strength) ezetimibe 10 mg tablet 10 mg PO DAILY #30 tabs 11/24 07/18 carvedilol 25 mg tablet 25 mg PO BID #180 tabs 12/08 sacubitril 49 mg-valsartan 51 mg 1 tab PO BID #180 tab s 12/08/24 tablet (Entresto) cholecalciferol (vitamin D3) 25 25 mcg PO DAILY #90 ca ps 01/01/25 mcg (1,000 unit) capsule amoxicillin 875 mg-potassium 1 tab PO BID 7 days #14 t abs 01/02/25 clavulanate 125 mg tablet Allergies Allergy/AdvReac Type Severity Reaction Status Date / Time levaquin Allergy Severe rash Uncoded 01/02/25 17:14 [facility] Past Medical History Medical History Lung granuloma Essential hypertension NSTEMI (non-ST elevated myocardial infarction) Interstitial lung disease ST elevation myocardial infarction (STEMI) of anterior wall Ischemic cardiomyopathy CAD (coronary artery disease) Surgical History Status post lobectomy of lung Stented coronary artery Family History Family History Father Heart problem Mother COPD (chronic obstructive pulmonary disease) Social History Social History Housing: Apartment Alcohol intake: never Patient Tobacco Use Status: Former Tobacco user Smoked in Last 30 Days: No e-Cigarette/Vaping Use: Never Used Use of substances other than those prescribed or required for medical reasons: No Advance Directives: No Advance Directives Information Provided: No service: No Current occupational status: retired Current occupational exposures/hazards: No Cognitive needs: No Hearing needs: No Vision needs: Yes Physical Exam ED Exam Exam: EXAM: Gen: Alert, awake, well appearing, well hydrated. Head: Atraumatic Eyes: Anicteric, Normal conjunctiva. ENT: Moist mucosa, no pallor. ?Moderate facial tenderness no active nasal discharge clear patent oropharynx supple neck Neck: Supple. Skin: ?No observable rash or bruising on exposed or examined skin Respiratory: Breathing comfortably, No distress.Clear to auscultation bilaterally, symmetric chest expansion, No wheeze, rales, ronchi. Cardiovascular: Regular rate and rhythm. No murmurs or rub. Well perfused periphery, warm extremities. No edema. ? Abdominal: No focal tenderness. Soft, no objective distension. No palpable masses or obvious organomegaly. ?No guarding, no rebound tenderness or other peritoneal findings. : No flank tenderness. Neuro: Alert. Gross movement of all extremities intact. ? Psych: Calm. Cooperative. MSK: No grossly visible deformity. Vital signs: See flowsheet Vital Signs: Vital Signs - 24 hr 01/02/25 17:13 01/02/25 20:51 01/02/25 20:51 Temperature 98.7 F 100.1 F Pulse Rate 101 H 95 Respiratory Rate 18 17 Blood Pressure 135/64 Pulse Oximetry 97 97 97 Oxygen Delivery Method Room Air Room Air Room Air 01/02/25 22:31 Temperature 100.1 F Pulse Rate 95 Respiratory Rate 17 Blood Pressure 135/64 Pulse Oximetry 97 Oxygen Delivery Method Room Air BMI result Body Mass Index 33.9 Course Course Course Narrative: This is an RME: Additional HPI, ROS, PE not included below will be deferred to primary provider. RME assessment and note performed by: Juju Lou PA-C This is a 67-choy-vou-male, with a hx of STEMI w 3 stents, CAD, diabetes, HLD, who presents to the ER with a complaint of congestion, facial pressure, SOB. Plan: EKG, CXR, viral swabs Medications Administered Discontinued Medications Generic Name Dose Route Start Last Admin Trade Name Freq PRN Reason Stop Dose Admin Acetaminophen 975 mg 01/02/25 21:31 01/02/25 21:37 Acetaminophen 325 Mg Tablet PO 01/02/25 21:32 975 mg ONCE ONE Administration Amoxicillin/Clavulanate Potassium 875 mg 01/02/25 21:31 01/02/25 21:37 Amoxicillin/Potassium Clav 875 Mg Tablet PO 01/02/25 21:32 875 mg ONCE ONE Administration Medical Decision Making Medical Decision Making MDM Narrative: Medical Decision Makin-year-old male with history of hypertension, diabetes, CAD with stents in the past here with facial pain nasal congestion and upper back discomfort/myalgia. Denied any chest pain but troponin slightly elevated. On repeat was stable. The patient denied any anginal symptomatology. Probably has bacterial sinusitis given the symptoms we will start Augmentin he has got facial pain and tenderness. ECG with possible inferior Q-waves no comparison ECGs here. I strongly encouraged him to call his PCP and/or vice president of product marketing tomorrow given these findings as I can not completely exclude atypical anginal presentation he was convinced and described to me that ?this is not my heart?. Preliminary Favored Differential Diagnosis: COVID, sinusitis, URI, myalgia, electrolyte derangement, chronic ischemic cardiomyopathy with chronic troponin leak among additional considered etiologies Testing Interpreted Independently: ECG interpretation below Radiology or Lab testing Results Reviewed: ?See below for details Consults: ?See below for details Independent Historians/External Chart Reviews: ?See below for details Social Determinants of Health Impacting MDM/Planning: ?See below for details Lab Data MDM Lab Attestation statement: I reviewed the patient's lab results. Mild lymphopenia. Normal chemistries. Mild elevated troponin but stable in fact decreased on repeat 67-60 01/02/25 18:45 01/02/25 17:33 Labs: Lab Results 01/02/25 01/02/25 01/02/25 Range/Units 17:33 18:45 21:04 WBC 10.4 (4.8-10.8) X10*3/uL RBC 5.67 (4.60-5.80) X10*6/uL Hgb 16.7 (14.0-18.0) g/dl Hct 47.4 (42.0-52.0) % MCV 83.6 (80.0-98.0) fL MCH 29.5 (27.0-33.0) pg MCHC 35.2 (31.0-36.0) g/dl RDW 11.9 (11.0-16.0) % Plt Count 171 (160-400) X10*3/uL MPV 10.2 (9.4-12.4) fL Immature Gran % (Auto) 0.5 H (0.0-0.4) % Neut % (Auto) 76.6 H (45-73) % Lymph % (Auto) 7.7 L (20-40) % [place] % (Auto) 14.2 H (2-11) % Eos % (Auto) 0.7 (0-4) % Baso % (Auto) 0.3 (0-2) % Lymph # (Auto) 0.8 L (1.2-4.9) X10*3/uL [place] # (Auto) 1.5 H (0.1-1.2) X10*3/uL Eos # (Auto) 0.1 (0.0-0.4) X10*3/uL Baso # (Auto) 0.0 (0.0-0.2) X10*3/uL Abs Immat Gran (auto) 0.05 H (0.00-0.03) X10*3/uL Absolute Neuts (auto) 8.0 (2.0-8.3) x10*3/uL Absolute Nucleated RBC 0.000 (0.0-0.012) X10*3/uL Nucleated RBC % (auto) 0.0 (0.0-0.2) /100WBC Sodium 137 (135-145) mmol/L Potassium 4.6 (3.3-5.1) mmol/L Chloride 106 (96-108) mmol/L Carbon Dioxide 23 (22-29) mmol/L Anion Gap 13 (12-20) BUN 15 (9-16) mg/dL Creatinine 1.06 (0.5-1.4) mg/dL Estim Creat Clear Calc 77.4 Estimated GFR > 60 Random Glucose 265 H (60-115) mg/dL Calcium 8.9 (8.4-10.2) mg/dL Magnesium 2.0 (1.6-2.6) mg/dL Total Bilirubin 0.8 (0.0-1.0) mg/dL Direct Bilirubin 0.2 (0.0-0.5) mg/dL AST 40 H (5-37) U/L ALT 46 H (0-40) U/L Alkaline Phosphatase 55 (39-117) U/L Troponin I High Sens 67.9 H 60.9 H (<3.5-35.0) ng/L B-Natriuretic Peptide 82 (<100) pg/mL Total Protein 7.3 (6.5-8.0) g/dL Albumin 4.0 (3.5-5.0) g/dL COVID-19 (NIYA) Positive A (Negative) COVID-19 Clin Com See Note Influenza Type A (LINDY) Negative (Negative) Influenza Type B (LINDY) Negative (Negative) Influenza A & B Note See Note Independent Interpretation I performed an independent interpretation of an: EKG (Questionable Q-waves inferiorly particularly [address]F. No reciprocal ST elevations. Left axis deviation is present sinus tachycardia 105 QTC 452) Discharge Plan Discharge Clinical Impression: Acute bacterial sinusitis, COVID-19 Patient Disposition: Home, Self-Care Instructions: Sinusitis (ED) Additional Instructions: You were evaluated for facial pain nasal discharge found to have COVID-19. We also feel you may have a bacterial sinus infection given the duration and thick discharge from your nose. We will treat you with antibiotics for your a nasal infection. COVID-19 at this time it is typically treated with supportive therapy stay hydrated and look out for signs of worsening cough or shortness of breath or chest pain to return back to the emergency department Prescriptions: New amoxicillin-pot clavulanate 875-125 mg tablet 1 tab PO BID 7 Days Qty: 14 0RF No Action sacubitril-valsartan [Entresto] 49-51 mg tablet 1 tab PO BID Qty: 180 0RF carvedilol 25 mg tablet 25 mg PO BID Qty: 180 0RF Rx Instructions: must administer with a meal/food cholecalciferol (vitamin D3) 25 mcg (1,000 unit) capsule 25 mcg PO DAILY Qty: 90 3RF aspirin [Ecotrin Low Strength] 81 mg tablet,delayed release (DR/EC) 81 mg PO DAILY Qty: 30 5RF ezetimibe 10 mg tablet 10 mg PO DAILY Qty: 30 5RF Januvia 100 mg tablet 100 mg PO DAILY fluticasone propionate 50 mcg/actuation spray,suspension 1 spray intranasal DAILY Rx Instructions: administer into each nostril atorvastatin [Lipitor] 80 mg tablet 80 mg PO BEDTIME Qty: 90 3RF fenofibrate micronized 134 mg capsule 134 mg PO DAILY Qty: 90 3RF Ozempic 0.25 mg or 0.5 mg (2 mg/3 mL) pen injector 0.5 mg subcut QWEEK 28 Days Qty: 3 0RF Rx Instructions: Take medication for 4 weeks, then reeval for possible dosage increase albuterol sulfate [Ventolin HFA] 90 mcg/actuation HFA aerosol inhaler 2 puff inhalation Q4-6H PRN (Reason: shortness of breath or wheezing) Qty: 8.5 3RF Interventions: ED Discharge Assessment Last Done: 01/02/25 22:31 Discharge Date/Time: 01/02/25 22:32 Print Language: Kittitian
--- NOTE | 2025-01-02 17:18 | ECG_ITS ---
Test Reason : SOB Blood Pressure : */* mmHG Vent. Rate : 105 BPM Atrial Rate : 105 BPM P-R Int : 152 ms QRS Dur : 86 ms QT Int : 342 ms P-R-T Axes : 41 -33 111 degrees QTcB Int : 452 ms Sinus tachycardia Left axis deviation Inferior infarct , age undetermined Anterolateral infarct , age undetermined Abnormal ECG No previous ECGs available Referred By: Juju Lou Electronically Signed By: JOSEPH ALONZO MD
[2025-01-02 17:53] LABS: COVID-19 Test Positive (Negative); IDNOW Serial# 6674DD1D
[2025-01-02 18:00] LABS: Alanine Aminotransferase 46 U/L (0-40); Albumin Level 4.0 g/dL (3.5-5.0); Alkaline Phosphatase 55 U/L (39-117); Anion Gap 13 (12-20); Aspartate Amino Transferase 40 U/L (5-37); Blood Urea Nitrogen 15 mg/dL (9-16); Calcium 8.9 mg/dL (8.4-10.2); Carbon Dioxide 23 mmol/L (22-29); Chloride 106 mmol/L (96-108); Creatinine Clr Calc Pharmacy 77.4; Estimated Glomerular Filt Rate > 60; Magnesium 2.0 mg/dL (1.6-2.6); Potassium 4.6 mmol/L (3.3-5.1); Sodium 137 mmol/L (135-145); Total Protein 7.3 g/dL (6.5-8.0)
[2025-01-02 18:06] LABS: Troponin-I High Sensitivity 67.9 ng/L (<3.5-35.0)
[2025-01-02 18:19] LABS: IDNOW Serial# 58CA691E; Influenza B2 Negative (Negative)
[2025-01-02 18:58] LABS: Hematocrit 47.4 % (42.0-52.0); Hemoglobin 16.7 g/dl (14.0-18.0); Imm Gran Abs Auto 0.05 X10*3/uL (0.00-0.03); Imm Gran Pct Auto 0.5 % (0.0-0.4); Lymphocytes Absolute Auto 0.8 X10*3/uL (1.2-4.9); Mean Corpuscular HGB Conc 35.2 g/dl (31.0-36.0); Mean Corpuscular Hemoglobin 29.5 pg (27.0-33.0); Mean Corpuscular Volume 83.6 fL (80.0-98.0); NRBC Abs Auto 0.000 X10*3/uL (0.0-0.012); NRBC Pct Auto 0.0 /100WBC (0.0-0.2); Platelet Count 171 X10*3/uL (160-400); Red Blood Count 5.67 X10*6/uL (4.60-5.80); White Blood Count 10.4 X10*3/uL (4.8-10.8)
[2025-01-02 19:01] LABS: MANUAL DIFF FLAG NO
[2025-01-02 20:51] VITALS: PULSE 95; RESP 17; TEMP 37.8; O2SAT 97
--- OUTSIDE RECORDS SUMMARY | 2025-01-02 21:14 | XMS_ITS | Clinical Summary ---
Author Organization [address] Address [address] [place] [address] Phone Care Team Providers Care Strip Mill Operator Name Role Phone Shilo Vasquez MD Primary Care Provider [phone] Surgical History Surgery Date Site/Laterality Comments OTHER SURGICAL HISTORY 1985 PROCEDURE: [place] BRONCHOSCOPY W/TRANSBRONCHIAL LUNG BX 1 LOBE; COMMENT: granuloma Medical History Medical History Date Comments Chronic interstitial lung di sease ([facility] V24, [facility] V28) DX:Chronic interstitial raven g [...] Type 2 diabetes mellitus wit hout complication ([facility] V24, [facility] V28) 09/30/2020 DX:Type 2 diabetes mellitus without complication ([facility]) Carotid artery occlusion 01/03/2021 DX:Breaux tid artery occlusion; COMMENT: Chronic, R carotid. ST elevation myocardial infa rction involving left anterior descending (LAD) coronary artery ([facility] V24, [facility] V28) 09/30/2020 DX:ST elevation myocardial i nfarction involving left anterior descending (LAD) coronary artery ([facility]) Family History Medical History Relation [...] Screening: Stool Based Tests (FOBT/FIT) 03/06/2023 03/06/2022 RSV Immunization Adult Patients (1 - Risk 60-74 years 1-dose series) 2024 Depression Screening 04/26/2024 COVID-19 Vaccine ( season) 2024 08/14/2020, 07/22/2020 Influenza Vaccine (#1) 2024 Diabetes: Blood Sugar [...] type diabetes mellitus with renal manifestations, uncontrolled(250.42) ([facility] V24, [facility] V28) LIPID PANEL WITH REFLEX TO DIRECT LDL Routine 07/17/2024 9:02 AM EDT Coronary atherosclerosis of [place] coronary artery MICROALBUMIN CREATININE URINE RATIO Routine 03/30/2024 11:11 AM EST Hyperlipidemia Essential hypertension, benign Coronary atherosclerosis of [place] coronary artery Heart failure, systolic ([facility], [facility] V28) Referral of patient without examination or treatment COMPREHENSIVE METABOLIC PANEL Routine 03/30/2024 11:05 AM EST Hyperlipidemia Essential hypertension, benign Coronary atherosclerosis of [place] coronary artery Heart failure, systolic ([facility] V24, [facility] V28) Referral of patient without examination or treatment from Last 3 Months or Most Recently Relevant to Health Maintenance Results * (ABNORMAL) Hemoglobin A1c (07/27/2024 10:12 AM EDT) Pathologist [facility] Hemoglobin A1C 9.6(H) <6.5 % LAB CHEMISTRY METHOD 07/27/2024 2:20 PM EDT [facility] Mean Bld Glu Estim. 229 mg/dL LAB CHEMISTRY METHOD 07/27/2024 2:20 PM EDT [facility] Blood Venous blood specimen / Unknown Venipuncture / Unknown 07/27/2024 10:12 AM EDT 07/27/2024 10:22 AM EDT us Rajendra Eaton PharmD LAB BLOOD ORDERABLES Lesly l Result [facility] [address] [place] [address], [place] [phone] * Lipid panel with reflex to direct LDL (07/17/2024 9:02 AM EDT) Pathologist [facility] Cholesterol 156 0 - 200 mg/dL LAB CHEMISTRY METHOD 07/17/2024 12:44 PM EDT [facility] Triglycerides 134 0 - 150 mg/dL LAB CHEMISTRY METHOD 07/17/2024 12:44 PM EDT [facility] HDL 41 >=40 mg/dL LAB CHEMISTRY METHOD 07/17/2024 12:44 PM EDT [facility] LDL Calculated 88 0 - 100 mg/dL LAB CHEMISTRY METHOD 07/17/2024 12:44 PM EDT [facility] VLDL Cholesterol Norbert 26.8 mg/dL LAB CHEMISTRY METHOD 07/17/2024 12:44 PM EDT [facility] Non HDL Chol. (LDL+VLDL) 115 <145 mg/dL LAB CHEMISTRY METHOD 07/17/2024 12:44 PM EDT [facility] Chol/HDL Ratio 3.8 0.0 - 4.4 LAB CHEMISTRY METHOD 07/17/2024 12:44 PM EDT [facility] Blood Venous blood specimen / Unknown Venipuncture / Unknown 07/17/2024 9:02 AM EDT 07/17/2024 10:47 AM EDT Jay Sams MD LAB BLOOD ORDERABLES Final Resul t Performing Organization Address City/[facility]/ZIP Co de Phone Number [facility] [address] [place] [address], [place] [phone] * (ABNORMAL) Microalbumin creatinine urine ratio (03/30/2024 11:11 AM EST) Creatinine, Urine 55.0 mg/dL LAB CHEMISTRY METHOD 03/30/2024 12:19 PM EST [facility] Microalb, Ur 21.5 0.0 - 29.0 mg/L LAB CHEMISTRY METHOD 03/30/2024 12:19 PM EST [facility] Microalb/Creat Ratio 39(H) <30 mg/g creat LAB CHEMISTRY METHOD 03/30/2024 12:19 PM EST [facility] Urine Urine specimen obtained by clean catch procedure / Unknown Non-blood Collection / Unknown 03/30/2024 11:11 AM EST 03/30/2024 11:19 AM EST us Susan Mejia NP LAB URINE ORDERABLE S Final Result Performing Organization Address City/[facility]/ZIP Co de Phone Number [facility] [address] [place] [address], [place] [phone] * (ABNORMAL) Comprehensive metabolic panel (03/30/2024 11:05 [...] LAB CHEMISTRY METHOD 03/30/2024 12:12 PM EST [facility] Alkaline Phosphatase 69 42 - 121 unit/L LAB CHEMISTRY METHOD 03/30/2024 12:12 PM [facility] Total Protein 7.2 6.0 - 8.0 g/dL LAB CHEMISTRY METHOD 03/30/2024 12:12 PM [facility] Albumin 3.9 3.2 - 5.0 g/dL LAB CHEMISTRY METHOD 03/30/2024 12:12 PM [facility] Total Bilirubin 0.8 0.0 - 1.4 mg/dL LAB CHEMISTRY METHOD 03/30/2024 12:12 PM [facility] Blood Venous blood specimen / Unknown Venipuncture / Unknown 03/30/2024 11:05 AM EST 03/30/2024 11:20 AM EST us Susan Mejia [employer] LAB BLOOD ORDERABLE S Final Result [facility] [address] [place] [address], from Last 3 Months or Most Recently Relevant to Health Maintenance Insurance [facility] Member Subscriber Plan / Payer (Ef fective 2023-Present) Name:Mohsen Pearce Relation to Subscriber:Self Name:Mohsen Pearce Payer ID:[id number] Group ID:[id number] Type:Not on file Address: [place] [address] [address] [id number] [facility] MEDICARE Member Subscriber Plan / Payer (Ef fective 2023-Present) Name:Mohsen Pearce Relation to Subscriber:Self Name:Mohsen Pearce Payer ID:[id number] Group ID:[id number] Type:Not on file Address: [address] [facility] [address] [phone] Care Teams Strip Mill Operator Relationship Specialty Start Date End Date Shilo Vasquez MD [address] [place] [address] PCP - General Internal Medicine 08/24/21
--- NOTE | 2025-01-02 21:25 | PC.NURSE ---
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 Its my lungs and I know it.
[2025-01-02 21:44] LABS: B Type Natriuretic Peptide 82 pg/mL (<100)
[2025-01-02 21:49] LABS: Troponin-I High Sensitivity 60.9 ng/L (<3.5-35.0)
[2025-01-02 22:31] VITALS: BP 135/64; PULSE 95; RESP 17; TEMP 37.8; O2SAT 97
== END 2025-01-02 22:32 | disposition home or self-care (01) ==
PROVIDERS: Physician Assistant Medical; Emergency Provider Emergency Medicine
DX: U07.1 COVID-19 (principal); J01.90 Acute sinusitis, unspecified; B96.89 Other specified bacterial agents as the cause of diseases classified elsewhere; R51.9 Headache, unspecified; M54.50 Low back pain, unspecified; R00.0 Tachycardia, unspecified; R06.02 Shortness of breath; M79.10 Myalgia, unspecified site; Z79.899 Other long term (current) drug therapy
CPT/HCPCS: 36415; 80048; 80076; 83735; 83880; 84484; 85025; 87502; 87635; 93005; 99283; 99285

== ENCOUNTER → 2025-01-02 17:18 | Outpatient (BNV) | payer OTHER, SELFPAY | PROVIDERS: Emergency Provider Emergency Medicine; Visit Provider Internal Medicine Cardiovascular Disease | DX: R00.0 Tachycardia, unspecified (principal) | CPT/HCPCS: 93010 ==

== ENCOUNTER 2025-01-26 08:21 | Outpatient (AMB) | payer OTHER, SELFPAY ==
[2025-01-26 08:23] VITALS: BP 110/64; PULSE 83; RESP 18; TEMP 36.2; O2SAT 94; BMI 34.0
--- NOTE | 2025-01-26 08:23 | A.OFFPC_ITS ---
Vital Signs 01/26/25 08:23 Height 5 ft 5 in Weight 204 lb 6 oz BMI 34.0 BP 110/64 Blood Pressure Location Lt brachial Position Sitting Respiration 18 Pulse 83 Pulse Source Pulse Oximeter Temp 97.1 F Temp Source Temporal Artery Scan Pulse Oximetry (%) 94 Oxygen Delivery Method Room Air Intake Visit Reasons: swollen nostril Brine Plant Operator Required: No Accompanied by: Self / Same As Patient Allergies levaquin Allergy (Severe, Uncoded 01/26/25 08:39) rash Medication List - Last Reconciled 01/26/25 by YAZMIN Robles albuterol sulfate 90 mcg/actuation (Ventolin HFA) 2 puffs inhalation Q4-6H PRN aspirin (Ecotrin Low Strength) 81 mg PO DAILY atorvastatin (Lipitor) 80 mg PO BEDTIME carvedilol 25 mg PO BID cholecalciferol (vitamin D3) 25 mcg PO DAILY Entresto 49-51 mg (sacubitril-valsartan) 1 tab PO BID NS ezetimibe 10 mg PO DAILY fenofibrate micronized 134 mg PO DAILY fluticasone propionate 50 mcg/actuation 1 spray intranasal DAILY PRN sitagliptin phosphate (Januvia) 100 mg PO DAILY Tobacco use date assessed: 01/26/25 Dental Screening Dental Screen Date: 01/26/25 Did you have a dental visit in the last 12 months?: Yes Did you have a dental problem in the last 6 months where you did not have access to dental care?: No Was dental information given to patient?: Patient has dentist HPI swollen nostril HPI Details The patient is a 59-year-old male presenting with a bee sting that has resulted in a secondary infection. The incident occurred two days ago while the patient was picking vegetables, and he was stung by two bees on the nose. The patient reports significant swelling and the presence of yellowish-green pus at the site of the sting, causing difficulty in shaving, eating, and sneezing due to pain. The pain is described as stabbing, similar to the sensation of receiving an injection of Novocaine, and is exacerbated by wind or temperature changes. The p atient attempted to use a triple antibiotic ointment, has been ineffective. The patient has a history of diabetes and elevated glucose, with a recent random glucose reading of 287 mg/dL, although he was not fasting at the time of the test. An A1c test has been ordered to assess long-term glucose control. A1c 9.2% in office. [facility] Medical History Lung granuloma Essential hypertension NSTEMI (non-ST elevated myocardial infarction) Interstitial lung disease ST elevation myocardial infarction (STEMI) of anterior wall Ischemic cardiomyopathy CAD (coronary artery disease) Surgical History Status post lobectomy of lung Stented coronary artery Family History Father Heart problem Mother COPD (chronic obstructive pulmonary disease) Social History Housing: Apartment Alcohol intake: never Patient Tobacco Use Status: Former Tobacco user e-Cigarette/Vaping Use: Never Used service: No Current occupational status: retired Current occupational exposures/hazards: No Cognitive needs: No Hearing needs: No Vision needs: Yes Questionnaire Thrive Questionnaire Date Thrive assessed: 11/09/24 I am a: Patient What is your living situation today?: I have a steady place to live Within the past 12 months, did the food you bought not last and you didn't have the money to get more?: Often true Within the past 12 months, did you worry whether your food would run out before you got money to buy more?: Sometimes True Do you have trouble paying for medicines?: No Do you have trouble getting transportation to medical appointments?: No Do you have trouble paying your heating and electricity bill?: No Do you have trouble taking care of your child, family member or friend?: No Do you have trouble with day-to-day activities such as bathing, preparing meals, shopping, managing finances, etc.?: No Are you currently unemployed and looking for a job?: No Are you interested in more education?: No Please select the resources that you would like help with: None Currently or been in a relationship where the following occur: No concerns reported THRIVE Score: 2 Review of Systems Const Denies body aches and Denies chills Eyes Denies loss of vision ENT Reports nasal congestion and Reports other (skin infection/small wound to left nare) Card Denies chest pain, Denies rapid heart rate, Denies edema and Denies dyspnea Resp Denies cough and Denies dyspnea Neuro Denies loss of vision Physical exam (Primary Care) Vital Signs: Last Vital Signs Temp 97.1 F 01/26/25 08:23 Pulse 83 01/26/25 08:23 Resp 18 01/26/25 08:23 BP 110/64 01/26/25 08:23 Pulse Ox 94 01/26/25 08:23 Oxygen Delivery Method Room Air 01/26/25 08:23 BMI result Body Mass Index 34.0 Tobacco/Smoking Status: Tobacco use Status Tobacco use date assessed 01/26/25 01/26/25 08:28 Patient Tobacco Use Status Former Tobacco user 01/26/25 08:28 e-Cigarette/Vaping Use Never Used 01/26/25 08:28 Thrive Assessment: Date of Thrive Assessment Date Thrive assessed 11/09/24 01/26/25 08:28 Currently or been in a relationship where the following occur: No concerns reported Const General: cooperative Nutritional Appearance: obese Orientation/consciousness: oriented to person, oriented to place, oriented to time and patient oriented x3 Limitations: no limitations HENMT Head: Yes normocephalic Ears: hearing grossly normal bilaterally General nose exam: Abnormal external nose present nasal erythema, nasal tenderness and nasal swelling and Nasal discharge present (small wound from bee sting that lead to skin infection in left nare) purulent on the left and localized Eyes General: appearance normal, both eyes and all related structures Pupils: Equal, round and reactive pupils present Resp Effort & Inspection: normal respiratory effort Auscultation: clear to auscultation bilaterally Cardio Rhythm: regular rhythm Heart sounds: S1 normal heart sound present and S2 normal heart sound present Skin Wounds: wounds noted (inner left nostril small open area, erythema, edema, and tender to touch) Neuro General: oriented to person, oriented to place, oriented to time and patient oriented x3 Cranial nerves: Yes Equal, round and reactive pupils present Results AMB Hemoglobin A1c AMB Hemoglobin A1c 9.2 % Last Edit by HAZEL Brooks on 01/26/25 09 :09 Results Reviewed Results Reviewed: Laboratory Last Values Hgb A1c (Clinic) 9.2 % (4.0-6.0) H 01/26/25 08:58 Coding Level of Care Code Est Pt Level 3 (95992) Diagnoses Skin infection L08.9 Uncontrolled type 2 diabetes mellitus with hyperglycemia E11.65 Diabetes mellitus type: type 2 Time Spent (min) 33 Assessment & Plan Assessment & Plan (1) Skin infection: Code(s): L08.9 - Local infection of the skin and subcutaneous tissue, unspecified Category: Medical Plan: Left Nostril at the tip of the nose skin infection resulted from bee sting. The patient will be treated with doxycycline 100 mg twice daily for 10 days . Mupirocin 2% ointment topical bid x 14 days ordered. Tne patient is having some nasal congestion, consider adding a prednisone, but the patient A1C is 9.2%, will hold off on this for now. (2) Uncontrolled diabetes mellitus with hyperglycemia: Code(s): E11.65 - Type 2 diabetes mellitus with hyperglycemia Category: Medical Qualifiers: Diabetes mellitus type: type 2 Qualified Code(s): E11.65 - Type 2 diabetes mellitus with hyperglycemia Plan: The patient a1c is 9.2% the patient apparent not taking ozempic anymore and is only taking Januvia 100mg. The patient left before A1c resulted. The patient was called and reports that he ran out of the Ozempic and has not been on this f or 3 weeks now. We will start back the patient on the low-dose and then titrate this up in 4 weeks. Orders: Orders AMB Hemoglobin A1c Today Z13.9 - Encounter for screening, unspecified Medications: New doxycycline monohydrate 100 mg PO BID 20 tabs 0RF 10 days mupirocin 2% 1 appl topical BID 15 grams 0RF mupirocin 2% 1 appl topical BID 15 grams 0RF 14 days prednisone see taper instructions take 4 tabs x 2 days, then 3 tabs x 2 days, the 2 tabs x 2 days, then 1 tab x 2 days=20 tabs for 8 days 10 mg PO DIRECTED 20 tabs 0RF Changed From semaglutide (Ozempic) Take medication for 4 weeks, then reeval for possible dosage increase 0.5 mg (0.736 mL) subcut QWEEK 4 weeks 3 mL 0RF E11.9 - Type 2 diabetes mellitus without complications To semaglutide (Ozempic) The patient has been off the medication for 3 weeks, will start back on the low dose, then increase in 4 weeks 0.5 mg (0.736 mL) subcut QWEEK 3 mL 0RF 4 weeks E11.9 - Type 2 diabetes mellitus without complications
--- OUTSIDE RECORDS SUMMARY | 2025-01-26 08:39 | XMS_ITS | Clinical Summary ---
Author Organization [address] Address [address] [place] [address] Phone Care Team Providers Care Furnace Helper Name Role Phone Shilo Vasquez MD Primary Care Provider [phone] Surgical History Surgery Date Site/Laterality Comments OTHER SURGICAL HISTORY 1985 PROCEDURE: [place] BRONCHOSCOPY W/TRANSBRONCHIAL LUNG BX 1 LOBE; COMMENT: granuloma Medical History Medical History Date Comments Chronic interstitial lung di sease ([facility] V[facility], [facility] V28) DX:Chronic interstitial raven g disease (HCC); COMMENT: Heart failure w/ reduced EF. Joint pain DX:Joint pain S/P partial lobectomy of lung DX :S/P partial lobectomy of lung; COMMENT: partial left Obesity DX:Obesity Bronchitis DX:Bronchitis Essential hypertension DX:Essent ial hypertension Hyperlipidemia DX:Hyperlipidemi a Family history of cardiovasc ular disease DX:Family history of cardiov ascular disease Type 2 diabetes mellitus wit hout complication 09/30/2020 DX:Type 2 diabetes mellitus without complication (HCC) Carotid artery occlusion 01/03/2021 DX:Breaux tid artery occlusion; COMMENT: Chronic, R carotid. ST elevation myocardial infa rction involving left anterior descending (LAD) coronary artery ([facility] V24, [facility] V28) 09/30/2020 DX:ST elevation myocardial i nfarction involving left anterior descending (LAD) coronary artery ([facility]) Family History Medical History Relation Name Comments [...] type diabetes mellitus with renal manifestations, uncontrolled(250.42) ([facility] V24, [facility] V28) LIPID PANEL WITH REFLEX TO DIRECT LDL Routine 07/17/2024 9:02 AM EDT Coronary atherosclerosis of [place] coronary artery MICROALBUMIN CREATININE URINE RATIO Routine 03/30/2024 11:11 AM EST Hyperlipidemia Essential hypertension, benign Coronary atherosclerosis of [place] coronary artery Heart failure, systolic ([facility] V24, [facility] V28) Referral of patient without examination or treatment COMPREHENSIVE METABOLIC PANEL Routine 03/30/2024 11:05 AM EST Hyperlipidemia Essential hypertension, benign Coronary atherosclerosis of [place] coronary artery Heart failure, systolic ([facility] V24, [facility] V28) Referral of patient without examination or treatment from Last 3 Months or Most Recently Relevant to Health Maintenance Results * (ABNORMAL) Hemoglobin A1c (07/27/2024 10:12 AM EDT) Pathologist [facility] Hemoglobin A1C 9.6(H) <6.5 % LAB CHEMISTRY [...] Result [facility] [address] [place] [address], * Lipid panel with reflex to direct LDL (07/17/2024 9:02 AM EDT) Cholesterol 156 0 - 200 mg/dL LAB [...] ORDERABLES Final Resul t Performing Organization Address City/[facility]/ZIP Co de Phone Number [facility] [address] [place] [address], [place] [phone] * (ABNORMAL) Microalbumin creatinine urine ratio (03/30/2024 [...] ORDERABLE S Final Result Performing Organization Address City/[facility]/ZIP Co de Phone Number [facility] [address] [place] [address], [place] [phone] * (ABNORMAL) Comprehensive metabolic panel (03/30/2024 11:05 AM EST) Sodium 135 133 - 145 mmol/L LAB CHEMISTRY METHOD 03/30/2024 12:12 PM [facility] Potassium 4.2 3.5 - 5.5 mmol/L LAB CHEMISTRY METHOD 03/30/2024 12:12 PM [facility] Chloride 103 96 - 110 mmol/L LAB CHEMISTRY METHOD 03/30/2024 12:12 PM [facility] CO2 27 21 - 32 mmol/L LAB CHEMISTRY METHOD 03/30/2024 12:12 PM [facility] Anion Gap 5 3 - 11 LAB CHEMISTRY METHOD 03/30/2024 12:12 PM [facility] Glucose 361(H) 70 - 100 mg/dL LAB CHEMISTRY METHOD 03/30/2024 12:12 PM [facility] BUN 18 5 - 25 mg/dL LAB CHEMISTRY METHOD 03/30/2024 12:12 PM [facility] Creatinine 1.13 0.70 - 1.30 mg/dL LAB CHEMISTRY METHOD 03/30/2024 12:12 PM [facility] eGFR 74 >=60 mL/min/1. 73m2 LAB CHEMISTRY METHOD 03/30/2024 12:12 PM [facility] Comment:Calculation based on the Chronic Kidney Disease Epidemiology Collaboration (CKD-EPI) equation refit without adjustment for race. BUN/Creatinine Ratio 15.9 LAB CHEMISTRY METHOD 03/30/2024 12:12 PM [facility] Calcium 9.2 8.5 - 10.5 mg/dL LAB CHEMISTRY METHOD 03/30/2024 12:12 PM [facility] AST (SGOT) 22 10 - 42 unit/L LAB CHEMISTRY METHOD 03/30/2024 12:12 PM [facility] ALT (SGPT) 49 10 - 60 unit/L LAB CHEMISTRY METHOD 03/30/2024 12:12 PM EST [facility] Alkaline Phosphatase 69 42 - 121 unit/L LAB CHEMISTRY METHOD 03/30/2024 12:12 PM [facility] Total Protein 7.2 6.0 - 8.0 g/dL LAB CHEMISTRY METHOD 03/30/2024 12:12 PM [facility] Albumin 3.9 3.2 - 5.0 g/dL LAB CHEMISTRY METHOD 03/30/2024 12:12 PM [facility] Total Bilirubin 0.8 0.0 - 1.4 mg/dL LAB CHEMISTRY METHOD 03/30/2024 12:12 PM [facility] Blood Venous blood specimen / Unknown Venipuncture / Unknown 03/30/2024 11:05 AM EST 03/30/2024 11:20 AM EST us Susan Mejia NP LAB BLOOD ORDERABLE S Final Result [facility] [address] [place] [address], from Last 3 Months or Most Recently Relevant to Health Maintenance Insurance [facility] Member Subscriber Plan / Payer (Ef fective 2023-Present) Name:Mohsen Pearce Relation to Subscriber:Self Name:Mohsen Pearce Payer ID:[id number] Group ID:[id number] Type:Not on file Address: [facility] [address] [phone] [facility] MEDIC[facility] Member Subscriber Plan / Payer (Ef fective 2023-Present) Name:Mohsen Pearce Relation to Subscriber:Self Name:Mohsen Pearce Payer ID:[id number] Group ID:[id number] Type:Not on file Address: [address] [place] [phone] Care Teams Furnace Helper Relationship Specialty Start Date End Date Shilo Vasquez MD [address] [place] [address] PCP - General Internal Medicine 08/24/21
--- OUTSIDE RECORDS SUMMARY | 2025-01-26 08:39 | XMS_ITS | Clinical Summary ---
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 Name Role Phone Eagle Aguirre PA-C Primary [...] mcg/actuation inhalerIndications:M ild intermittent asthma without complication Inhale 2 Puffs [...] mcg/actuation inhalerIndications:M ild intermittent asthma without complication Inhale 2 Puffs [...] with hyperglycemia, with long-term current use of insulin,Hyperlipidem ia LDL goal <70 Take 1 Tablet by mouth nightly at bedtime For cholesterol 90 Tablet 1 07/28/19 25 Active sacubitriL-valsartan (ENTRESTO) 49-51 mg tabIndications:Heart failure with reduced ejection fraction Take 1 Tablet by mouth 2 (two) times daily ([place] [facility] [place] 07/28/19 25 Active carvediloL (COREG) 25 mg tabletIndications:He art failure with reduced ejection fraction Take 1 Tablet by mouth 2 (two) times daily (Pres[place] [facility] [place] 07/28/19 25 Active blood-glucose meter monitoring kitIndications:Type 2 diabetes mellitus with hyperglycemia, with long-term current use of insulin Use to test blood glucose twice daily. (Freestyle Lite) 1 Each 07/28/19 25 Active blood sugar diagnostic stripsIndications:Ty pe 2 diabetes mellitus with hyperglycemia, with long-term current use of insulin Use to test blood glucose twice daily. (Freestyle Lite) 100 Each 07/28/19 25 Active lancets (FREESTYLE LANCETS) 28 gaugeIndications:Typ e 2 diabetes mellitus with hyperglycemia, with long-term current use of insulin Use to test blood glucose twice daily. (Freestyle Lite) 100 Each 07/28/19 25 Active alcohol swabsIndications:Typ e 2 diabetes mellitus with hyperglycemia, with long-term current use of insulin Use to test blood glucose twice daily. 100 Each 07/28/19 25 Active blood-glucose,receiv er,cont (FREESTYLE GIORGI 3 READER) miscIndications:Type 2 diabetes mellitus with hyperglycemia, with long-term current use of insulin Use to test blood glucose continuously. (Freestyle Giorgi 3 reader) 1 Each 07/28/19 25 Active blood-glucose sensor (FREESTYLE GIORGI 3 SENSOR) deviIndications:Type 2 diabetes mellitus with hyperglycemia, with long-term current use of insulin Apply to back of upper arm every 14 days. Use to test blood glucose continuously (Freestyle Giorgi 3 sensor) 2 Each 07/28/19 25 Active SITagliptin phosphate (JANUVIA) 100 mg tabletIndications:Ty pe 2 diabetes mellitus with hyperglycemia, with long-term current use of insulin,Type 2 diabetes mellitus with microalbuminuria Take 1 Tablet by mouth once daily [...] (BMI) of 36.0 to 36.9 in adult 07/27/2024 Type 2 diabetes mellitus wit h hyperglycemia, with long-term current use of insulin 07/27/2024 H/O acute myocardial infarction of inferior wall 07/15/2024 Ischemic cardiomyopathy 07/15/2024 Mild intermittent asthma without complication Arthralgia 04/21/2021 Heart failure with reduced ejection fraction Overview (09/17/2021): [facility] Cardiology Dr Torres Hyperlipidemia LDL goal <70 04/21/2021 S/P lobectomy of lung 04/21/2021 Interstitial lung disease 04/21/2021 Overview (04/21/2021): Based on previous chext x-rays done at [facility] NSTEMI (non-ST elevated myocardial infarction) 1 06/22/2020 Type 2 diabetes mellitus with microalbuminuria 0 10/02/2015 Overview (07/27/2024): DM dx: ~[id number] at [facility] Glucometer: Freestyle Lite (issued Freestyle Giorgi 3) Current Diabetes RX: Ozempic 5 mg once weekly every JA-I/ARB: Entresto 49/51 mg twice daily (pres[place] [facility] [place] Statin: Atorvastatin 80 mg daily every evening Pneumococcal vaccine: PCV20 (05/26/24) Diabetes foot exam: Never Diabetes retinal exam: 07/29/24 at [facility] No active diabetic retinopathy [...] RX today Essential hypertension 10/02/2015 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 Nephrolithiasis 10/02/2015 Overview (10/02/2015): Last episode ~2012, went to [facility] Chronic pain of both shoulders 10/02/2015 Overview (10/02/2015): Pt says that he had calcium deposits. Was following at [facility]. Using Naproxen prn Allergic rhinitis 10/02/2015 Resolved Problems Problem Noted Date Diagnosed Date Resolved Date Uncontrolled type 2 diabetes mellitus with hyperglycemia 04/21/2021 07/27/2024 Dyslipidemia 10/02/2015 07/27/2024 Morbid obesity 10/02/2015 07/27/2024 Immunizations Immunization Administration Dates Next Due PNEUMOCOCCAL [...] Colorectal Cancer Screening 03/06/2023 FIT/gFOBT 03/06/2023 03/06/2022 Depression Annual Screen 04/26/2024 02/02/2023 Hemoglobin A1c 06/28/2024 03/30/2024, 12/08/2023, 06/25/2023, Additional history exists [id number] ( season) 2024 08/14/2020, 07/22/2020 Imm-Influenza (#1) 2024 Serum Creatinine 03/30/2025 03/30/2024, [...] 2 diabetes mellitus with microalbuminuria, unspecified whether extermination inspector insulin use Dyslipidemia Morbid obesity (HCC-CMS) Hypertriglyceridemia 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, without long-term current use of insulin LIPID PANEL Routine 02/03/2023 11:59 AM EDT Heart failure with reduced ejection fraction (HCC-CMS) Uncontrolled type 2 diabetes mellitus with hyperglycemia (HCC-CMS) Type 2 diabetes mellitus with microalbuminuria, unspecified whether halfway insulin use Dyslipidemia Morbid obesity (HCC-CMS) Hypertriglyceridemia 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, without long-term current use of insulin FECAL GLOBIN BY IMMUNOCHEMISTRY (FIT) Routine 03/06/2022 1:17 PM EST Encounter for colorectal cancer screening MICROALBUMIN/CREATININE RATIO, URINE, RANDOM Routine 01/30/2021 11:22 AM EDT Type 2 diabetes mellitus with microalbuminuria, without long-term current use of insulin ([facility]) from Last 3 Months or Most Recently Relevant to Health Maintenance Results * EYE EXAM (08/02/2024 3:00 AM EDT) 08/02/2024 3:00 AM EDT Eagle Aguirre PA-C OTHER Final Result * (ABNORMAL) HGBA1C W/MPG (06/25/2023 2:14 PM EST) HEMOGLOBIN A1C 11.9(H) <5.7 % of total Hgb [facility] Comment: For someone without known diabetes, a [...] children. MEAN PLASMA GLUCOSE 346 mg/dL (calc) [facility] Blood Blood / Unknown 06/25/2023 2 :14 PM EST 06/25/2023 2:14 PM EST Tien Francisco PharmD LAB - BLOOD D RAW Final Result [facility] [address] [place] [id number], [facility] [address] [place] [phone] * (ABNORMAL) LIPID PANEL (02/03/2023 11:59 AM EDT) CHOLESTEROL, TOTAL 186 <200 mg/dL [facility] HDL CHOLESTEROL 31(L) > OR = 40 mg/dL [facility] TRIGLYCERIDES 429(H) <150 mg/dL [facility] Comment: If a non-fasting specimen was collected, consider repeat triglyceride testing on a fasting specimen if clinically indicated. Rachel et al. J. of Clin. Lipidol. 2015;9:129-169. LDL-CHOLESTEROL See Note [facility] [employer] Comment: LDL cholesterol not calculated. Triglyceride levels [...] LDL-C. Nelson SS et al. LIZET. 2013;310(19): 7114-8698 (http://education.YourPOV.TV/faq/KVE763) CHOL/HDLC RATIO 6.0(H) <5.0 (calc) [facility] NON-HDL CHOLESTEROL 155(H) <130 mg/dL (calc) [facility] Comment: For patients with diabetes plus 1 major ASCVD risk factor, treating to a non-HDL-C goal of <100 mg/dL (LDL-C of <70 mg/dL) is considered a therapeutic option. Blood Blood / Unknown 02/03/2023 1 1:59 AM EDT 02/03/2023 11:59 AM EDT Nilo RAMIREZ LAB - BLOOD DRAW Final Result [facility] [address] [place] [id number], [facility] [address] [place] [phone] * (ABNORMAL) COMPREHENSIVE METABOLIC PANEL (02/03/2023 11:59 AM EDT) GLUCOSE 383(H) 65 - 99 mg/dL [facility] Comment: Fasting reference interval For someone without known diabetes, a glucose value >125 mg/dL indicates that they may have diabetes and this should be confirmed with a follow-up test. UREA NITROGEN (BUN) 20 7 - 25 mg/dL [facility] CREATININE (blood) 1.30 0.70 - 1.30 mg/dL [facility] EGFR 64 > OR = 60 mL/min/1. 73m2 [facility] BUN/CREATININE RATIO SEE NOTE: 6 - 22 [facility] Comment: Not Reported: BUN and Creatinine are within reference range. SODIUM 133(L) 135 - 146 mmol/L [facility] POTASSIUM 4.5 3.5 - 5.3 mmol/L [facility] CHLORIDE 97(L) 98 - 110 mmol/L [facility] CARBON DIOXIDE 26 20 - 32 mmol/L [facility] CALCIUM 8.9 8.6 - 10.3 mg/dL [facility] PROTEIN, TOTAL 6.9 6.1 - 8.1 g/dL [facility] ALBUMIN 4.0 3.6 - 5.1 g/dL [facility] GLOBULIN 2.9 1.9 - 3.7 g/dL (calc) [facility] ALBUMIN/GLOBULI N RATIO 1.4 1.0 - 2.5 (calc) [facility] BILIRUBIN, TOTAL 0.8 0.2 - 1.2 mg/dL [facility] ALKALINE PHOSPHATASE 50 35 - 144 U/L [facility] AST 16 10 - 35 U/L [facility] ALT 25 9 - 46 U/L [facility] Blood Blood / Unknown 02/03/2023 1 1:59 AM EDT 02/03/2023 11:59 AM EDT Nilo RAMIREZ LAB - BLOOD DRAW Edited Result - Final [facility] [address] [address], [employer] [address] [place] [phone] * FECAL GLOBIN BY IMMUNOCHEMISTRY (FIT) (03/06/2022 1:17 PM EST) FECAL GLOBIN BY IMMUNOCHEMISTRY See Note [employer] [facility] Comment: FECAL GLOBIN BY IMMUNOCHEMISTRY Micro Number: [id number] Test Status: Final Specimen Source: Insure (tm) [...] AMB ULATORY Final Result Performing Organization Address City/[facility]/ZIP Co de Phone Number [facility] [address] [address], [employer] [address] [phone] * MICROALBUMIN/CREATININE RATIO, URINE, RANDOM (01/30/2021 11:22 AM EDT) CREATININE, RANDOM URINE 91 20 - 320 mg/dL [facility] MICROALBUMIN 2.5 mg/dL [facility] Comment: Reference Range Not established MICROALBUMIN/CREA TININE RATIO, RANDOM URINE 27 <30 mcg/mg creat [facility] Comment: The ADA defines abnormalities in albumin [...] 11:22 AM EDT 01/30/2021 11:22 AM EDT [facility] URINE AMBULATORY Final Resul t Performing Organization Address [facility] Co de Phone Number [facility] [address] [address], [employer] [address] [place] [address],[place] [phone] from Last 3 Months or Most Recently Relevant to Health Maintenance [place] [id number] [facility] Care Teams Plywood And Veneer Repairer Relationship Specialty Start Date End Date Eagle Aguirre PA-C [address] [place] [address] PCP - General FAMILY MEDICINE [place] 03/31/24
== END 2025-01-26 09:59 | disposition home or self-care (01) ==
LOC: HO.HMCH 08:22
DX: L08.9 Local infection of the skin and subcutaneous tissue, unspecified (principal); E11.65 Type 2 diabetes mellitus with hyperglycemia; Z13.9 Encounter for screening, unspecified

== ENCOUNTER → 2025-01-26 08:21 | Outpatient (BNVA) | payer OTHER, SELFPAY | DX: E11.65 Type 2 diabetes mellitus with hyperglycemia (principal); L08.9 Local infection of the skin and subcutaneous tissue, unspecified; T63.441A Toxic effect of venom of bees, accidental (unintentional), initial encounter; Y92.9 Unspecified place or not applicable | CPT/HCPCS: 83036; 99212 ==

== ENCOUNTER 2025-02-27 13:55 | Outpatient (REF) | payer OTHER, SELFPAY | END 2025-02-27 13:56 | disposition home or self-care (01) | LOC: HO.HKASLDS 13:55 | PROVIDERS: Visit Provider Student in an Organized Health Care Education/Training Program | DX: I11.0 Hypertensive heart disease with heart failure (principal); I50.20 Unspecified systolic (congestive) heart failure; E11.9 Type 2 diabetes mellitus without complications; I50.9 Heart failure, unspecified; J32.9 Chronic sinusitis, unspecified; E78.2 Mixed hyperlipidemia; I25.5 Ischemic cardiomyopathy; J45.20 Mild intermittent asthma, uncomplicated; M54.9 Dorsalgia, unspecified; E66.811 Obesity, class 1; Z68.34 Body mass index [BMI] 34.0-34.9, adult; Z79.899 Other long term (current) drug therapy | CPT/HCPCS: 96127; 99212 ==

== ENCOUNTER 2025-02-27 13:55 | Outpatient (AMB) | payer OTHER, SELFPAY ==
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
[2025-02-27 14:16] VITALS: BP 121/76; PULSE 85; RESP 18; TEMP 36.4; O2SAT 98; BMI 34.0
--- OUTSIDE RECORDS SUMMARY | 2025-02-27 16:59 | XMS_ITS | Clinical Summary ---
Author Organization [address] Address [address] [place] [address] Phone Care Team Providers Care Grievance Coordinator Name Role Phone Shilo Vasquez MD Primary Care Provider [phone] Surgical History Surgery Date Site/Laterality Comments OTHER SURGICAL HISTORY 1985 PROCEDURE: [place] BRONCHOSCOPY W/TRANSBRONCHIAL LUNG BX 1 LOBE; COMMENT: granuloma Medical History Medical History Date Comments Chronic interstitial lung di sease ([facility] V24, [facility] V28) DX:Chronic interstitial raven g [...] involving left anterior descending (LAD) coronary artery ([facility] V24, [facility] V28) 09/30/2020 DX:ST elevation myocardial i nfarction involving left anterior descending (LAD) coronary artery ([facility]) Family History Medical History Relation [...] 02/05/1974 Diabetes: Annual Retina Eye Exam 02/05/1974 RSV Immunization Adult Patients (1 - Risk 50-74 years 1-dose series) 02/05/2014 HIV Screening 04/04/2022 Hepatitis C Screening 04/04/2022 Medicare Annual Wellness Visit 04/04/2022 Social Influencers of Health Screening 04/04/2022 Colorectal Cancer Screening: Stool Based Tests (FOBT/FIT) 03/06/2023 03/06/2022 Depression Screening 04/26/2024 COVID-19 Vaccine ( season) [...] type diabetes mellitus with renal manifestations, uncontrolled(250.42) ([facility] V24, [facility] V28) LIPID PANEL WITH REFLEX TO DIRECT LDL Routine 07/17/2024 9:02 AM EDT Coronary atherosclerosis of [place] coronary artery MICROALBUMIN CREATININE URINE RATIO Routine 03/30/2024 11:11 AM EST Hyperlipidemia Essential hypertension, benign Coronary atherosclerosis of [place] coronary artery Heart failure, systolic ([facility] V24, [facility] V28) Referral of patient without examination or treatment COMPREHENSIVE METABOLIC PANEL Routine 03/30/2024 11:05 AM EST Hyperlipidemia Essential hypertension, benign Coronary atherosclerosis of [place] coronary artery Heart failure, systolic ([facility] V24, [facility] V28) Referral of patient without examination or treatment from Last 3 Months or Most Recently Relevant to Health Maintenance Results * (ABNORMAL) Hemoglobin A1c (07/27/2024 10:12 AM EDT) Hemoglobin A1C 9.6(H) <6.5 % LAB CHEMISTRY METHOD 07/27/2024 2:20 PM EDT [facility] Mean Bld Glu Estim. 229 mg/dL LAB CHEMISTRY METHOD 07/27/2024 2:20 PM EDT [facility] Blood Venous blood specimen / Unknown Venipuncture / Unknown 07/27/2024 10:12 AM EDT 07/27/2024 10:22 AM EDT us Rajendra Eaton PharmD LAB BLOOD ORDERABLES Lesly l Result [facility] [address] [place] [address], * Lipid panel with reflex to direct LDL (07/17/2024 9:02 AM EDT) Cholesterol 156 0 - 200 mg/dL LAB CHEMISTRY METHOD 07/17/2024 12:44 PM EDT [facility] Triglycerides 134 0 - 150 mg/dL LAB CHEMISTRY METHOD 07/17/2024 12:44 PM EDT [facility] HDL 41 >=40 mg/dL LAB CHEMISTRY METHOD 07/17/2024 12:44 PM EDT [facility] LDL Calculated 88 0 - 100 mg/dL LAB CHEMISTRY METHOD 07/17/2024 12:44 PM EDT [facility] VLDL Cholesterol Norbert 26.8 mg/dL LAB CHEMISTRY METHOD 07/17/2024 12:44 PM EDT [facility] Non HDL Chol. (LDL+VLDL) 115 <145 mg/dL LAB CHEMISTRY METHOD 07/17/2024 12:44 PM EDT [facility] Chol/HDL Ratio 3.8 0.0 - 4.4 LAB CHEMISTRY METHOD 07/17/2024 12:44 PM EDT [facility] Blood Venous blood specimen / Unknown Venipuncture / Unknown 07/17/2024 9:02 AM EDT 07/17/2024 10:47 AM EDT us Jay Sams MD LAB BLOOD ORDERABLES Final Resul t [facility] [address] [place] [address], [place] [phone] * (ABNORMAL) Microalbumin creatinine urine ratio (03/30/2024 11:11 AM EST) Creatinine, Urine 55.0 mg/dL LAB CHEMISTRY METHOD 03/30/2024 12:19 PM EST [facility] Microalb, Ur 21.5 0.0 - 29.0 mg/L LAB CHEMISTRY METHOD 03/30/2024 12:19 PM EST [facility] Microalb/Creat Ratio 39(H) <30 mg/g creat LAB CHEMISTRY METHOD 03/30/2024 12:19 PM EST [facility] Urine Urine specimen obtained by clean catch procedure / Unknown Non-blood Collection / Unknown 03/30/2024 11:11 AM EST 03/30/2024 11:19 AM EST us Susan Mejia NP LAB URINE ORDERABLE S Final Result Performing Organization Address City/[facility]/ZIP Co de Phone Number [facility] [address] [place] [address], [place] [phone] * (ABNORMAL) Comprehensive metabolic panel (03/30/2024 11:05 [...] LAB CHEMISTRY METHOD 03/30/2024 12:12 PM EST [facility] Alkaline Phosphatase 69 42 - 121 [...] 11:05 AM EST 03/30/2024 11:20 AM EST Susan Mejia NP LAB BLOOD ORDERABLE S Final Result [facility] [address] [place] [address], from Last 3 Months or Most Recently Relevant to Health Maintenance Insurance [facility] Member Subscriber Plan / Payer (Ef fective 2023-Present) Name:Mohsen Pearce Relation to Subscriber:Self Name:Mohsen Pearce Payer ID:[id number] Group ID:[id number] Type:Not on file Address: [facility] [address] [phone] [employer] MED[employer] Member Subscriber Plan / Payer (Ef fective 2023-Present) Name:Mohsen Pearce Relation to Subscriber:Self Name:Mohsen Pearce Payer ID:[id number] Group ID:[id number] Type:Not on file Address: [address] [place] [phone] Care Teams Grievance Coordinator Relationship Specialty Start Date End Date Shilo Vasquez MD [address] [place] [address] PCP - General Internal Medicine 08/24/21
--- OUTSIDE RECORDS SUMMARY | 2025-02-27 16:59 | XMS_ITS | Clinical Summary ---
Author Organization [facility] Address [address] [place] [address] Care Team Providers Care Production Assistant Name Role Phone Eagle Aguirre PA-C Primary [...] (two) times daily (Prescribed by [facility]) 07/28/19 25 Active carvediloL (COREG) 25 mg tabletIndications:He art failure with reduced ejection fraction Take 1 Tablet by mouth 2 (two) times daily (Prescribed by [facility]) 07/28/19 25 Active blood-glucose meter monitoring [...] failure with reduced ejection fraction Overview (09/17/2021): [facility] Dr Torres Hyperlipidemia LDL goal <70 04/21/2021 S/P lobectomy of lung 04/21/2021 Interstitial lung disease 04/21/2021 Overview (04/21/2021): Based on previous chext x-rays done at [facility] NSTEMI (non-ST elevated myocardial infarction) 1 06/22/2020 Type 2 diabetes mellitus with microalbuminuria 0 10/02/2015 Overview (07/27/2024): DM dx: ~[phone] at [facility] Glucometer: Freestyle Lite (issued Freestyle Giorgi 3) Current Diabetes RX: Ozempic 5 mg once weekly every JA-I/ARB: Entresto 49/51 mg twice daily (prescribed by [facility]) Statin: Atorvastatin 80 mg daily every evening Pneumococcal vaccine: PCV20 (05/26/24) Diabetes foot exam: Never Diabetes retinal exam: 07/29/24 at [facility] No active diabetic retinopathy [...] (11/20/2015): S/p surgery ~1994 per [place] [facility] Not malignant [facility] [place] show Chr Interstitial Lung Dz in problem list CXR( 11[place]18/15, [facility] Stable fibrotic and postoperative changes with no superimposed acute process. Nephrolithiasis 10/02/2015 Overview (10/02/2015): Last episode ~2012, went to [facility] Chronic pain of both shoulders 10/02/2015 Overview (10/02/2015): Pt says that he had calcium deposits. Was following at [facility]. Using Naproxen prn Allergic rhinitis 10/02/2015 Resolved [...] 06/28/2024 03/30/2024, 12/08/2023, 06/25/2023, Additional history exists [id number] ( season) 12/25/202408/14/2 021, 07/22/2020 Imm-Influenza (#1) 2024 Serum Creatinine 03/30/2025 03/30/2024, 02/2023, 12/24/2021, Additional history exists Urine Albumin Creatinine Rat io Screening 03/30/2025 03/30/2024, 01/30/2021 Lipid Screening 07/17/2025 07/17/2024, 06/25, 03/30/2024, Additional history exists Imm-DTaP/Tdap/Td (3 - Td or Tdap) 07/18/2025 016, 07/19/2015 Tobacco Screening 07/27/2025 07/27/2024, 03/02/2022 Retinopathy Screening 08/02/2025 08/02/2024, 024 Imm-Zoster, Recombinant Completed 07/23/2022, 03/02 Imm-Pneumococcal 50+ Completed 05/26/2024 Alcohol and Drug Screen Completed 07/28/19, 02/02/2023, 06/05/2021, Additional history exists Diabetes Foot Exam Discontinued HIV Screening Discontinued Hepatitis C Screening Discontinued Procedures Procedure Name Priority Date/Time Associated Diagnosis Comments REFERRAL SCANNED DOCUMENT 01/24/2025 3:00 AM EDT EYE EXAM 08/02/2024 3:00 AM EDT HGBA1C W/MPG Routine 06/25/2023 2:14 PM EST Uncontrolled type 2 diabetes mellitus with hyperglycemia (HCC-CMS) COMPREHENSIVE METABOLIC PANEL Routine 02/03/2023 11:59 AM EDT Heart failure with reduced ejection fraction (HCC-CMS) Uncontrolled type 2 diabetes mellitus with hyperglycemia (HCC-CMS) Type 2 diabetes mellitus with microalbuminuria, unspecified whether shelter insulin use Dyslipidemia Morbid obesity (HCC-CMS) Hypertriglyceridemia 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, without long-term current use of insulin LIPID PANEL Routine 02/03/2023 11:59 AM EDT Heart failure with reduced ejection fraction (HCC-CMS) Uncontrolled type 2 diabetes mellitus with hyperglycemia (HCC-CMS) Type 2 diabetes mellitus with microalbuminuria, unspecified whether shelter insulin use Dyslipidemia Morbid obesity (HCC-CMS) Hypertriglyceridemia 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, without long-term current use of insulin FECAL GLOBIN BY IMMUNOCHEMISTRY (FIT) Routine 03/06/2022 1:17 PM EST Encounter for colorectal cancer screening MICROALBUMIN/CREATININE RATIO, URINE, RANDOM Routine 01/30/2021 11:22 AM EDT Type 2 diabetes mellitus with microalbuminuria, without long-term current use of insulin ([facility]) from Last 3 Months or Most Recently Relevant to Health Maintenance Results * REFERRAL SCANNED DOCUMENT (01/24/2025 3:00 AM EDT) 01/24/2025 3:00 AM EDT Nilo RAMIREZ SCAN REFERRAL Final Result * EYE EXAM (08/02/2024 3:00 AM EDT) 08/02/2024 3:00 AM EDT Eagle Aguirre PA-C OTHER Final Result * (ABNORMAL) HGBA1C W/MPG (06/25/2023 2:14 PM EST) HEMOGLOBIN A1C 11.9(H) <5.7 % of total Hgb [facility] Comment: For someone without known diabetes, a [...] children. MEAN PLASMA GLUCOSE 346 mg/dL (calc) [facility] Blood Blood / Unknown 06/25/2023 2 :14 PM EST 06/25/2023 2:14 PM EST Tien Francisco PharmD LAB - BLOOD D RAW Final Result [facility] [address] [address], [facility] [address] [place] [address] * (ABNORMAL) LIPID PANEL (02/03/2023 11:59 AM EDT) [facility] Signature CHOLESTEROL, TOTAL 186 <200 mg/dL [facility] HDL CHOLESTEROL 31(L) > OR = 40 mg/dL [facility] TRIGLYCERIDES 429(H) <150 mg/dL [facility] Comment: If a non-fasting specimen was collected, consider repeat triglyceride testing on a fasting specimen if clinically indicated. Rachel et al. J. of Clin. Lipidol. 2015;9:129-169. LDL-CHOLESTEROL See Note QUES Slidely [facility] Comment: LDL cholesterol not calculated. Triglyceride levels [...] LDL-C. Nelson SS et al. LIZET. 2013;310(19): 3017-7376 (http://education.ActuatedMedical/faq/HKD901) CHOL/HDLC RATIO 6.0(H) <5.0 (calc) [employer] NON-HDL CHOLESTEROL 155(H) <130 mg/dL (calc) [employer] [facility] Comment: For patients with diabetes plus 1 major ASCVD risk factor, treating to a non-HDL-C goal of <100 mg/dL (LDL-C of <70 mg/dL) is considered a therapeutic option. Blood Blood / Unknown 02/03/2023 1 1:59 AM EDT 02/03/2023 11:59 AM EDT Nilo RAMIREZ LAB - BLOOD DRAW Final Result [facility] [address] [address], [facility] [address] [place] [address] * (ABNORMAL) COMPREHENSIVE METABOLIC PANEL (02/03/2023 11:59 AM EDT) GLUCOSE 383(H) 65 - 99 mg/dL [facility] Comment: Fasting reference interval For someone without known diabetes, a glucose value >125 mg/dL indicates that they may have diabetes and this should be confirmed with a follow-up test. UREA NITROGEN (BUN) 20 7 - 25 mg/dL [facility] CREATININE (blood) 1.30 0.70 - 1.30 mg/dL [facility] EGFR 64 > OR = 60 mL/min/1. 73m2 [facility] BUN/CREATININE RATIO SEE NOTE: [facility] Comment: Not Reported: BUN and Creatinine are within reference range. SODIUM 133(L) 135 - 146 mmol/L [facility] POTASSIUM 4.5 3.5 - 5.3 mmol/L [facility] CHLORIDE 97(L) 98 - 110 mmol/L [facility] CARBON DIOXIDE 26 20 - 32 mmol/L [facility] CALCIUM 8.9 8.6 - 10.3 mg/dL [facility] PROTEIN, TOTAL 6.9 6.1 - 8.1 g/dL [facility] ALBUMIN 4.0 3.6 - 5.1 g/dL [facility] GLOBULIN 2.9 1.9 - 3.7 g/dL (calc) [facility] ALBUMIN/GLOBULI N RATIO 1.4 1.0 - 2.5 (calc) [facility] BILIRUBIN, TOTAL 0.8 0.2 - 1.2 mg/dL [facility] ALKALINE PHOSPHATASE 50 35 - 144 U/L [facility] AST 16 10 - 35 U/L [facility] ALT 25 9 - 46 U/L [facility] Blood Blood / Unknown 02/03/2023 1 1:59 AM EDT 02/03/2023 11:59 AM EDT Nilo RAMIREZ LAB - BLOOD DRAW Edited Result - Final [facility] [address] [address], [facility] [address] [address] * FECAL GLOBIN BY IMMUNOCHEMISTRY (FIT) (03/06/2022 1:17 PM EST) FECAL GLOBIN BY IMMUNOCHEMISTRY See Note [facility] Comment: FECAL GLOBIN BY IMMUNOCHEMISTRY Micro Number: [id number] Test Status: Final Specimen Source: Insure (tm) [...] specimen / Unknown 03/05/2022 11:56 PM EST Nilo RAMIREZ LAB BODY FLUIDS AND STOOLS AMB ULATORY Final Result Performing Organization Address [facility] Co de Phone Number [facility] [address] [address], [employer] [address] [address] * MICROALBUMIN/CREATININE RATIO, URINE, RANDOM (01/30/2021 11:22 AM EDT) CREATININE, RANDOM URINE 91 20 - 320 mg/dL [facility] MICROALBUMIN 2.5 mg/dL [employer] [facility] Comment: Reference Range Not established MICROALBUMIN/CREA TININE RATIO, RANDOM URINE 27 <30 mcg/mg creat [employer] [facility] Comment: The ADA defines abnormalities in [...] AM EDT 01/30/2021 11:22 AM EDT Greer ARANDAP LAB URINE AMBULATORY Final Resul t Performing Organization Address City/[facility]/ZIP Co de Phone Number [facility] [address] [address], [facility] [address] [address] from Last 3 Months or Most Recently Relevant to Health Maintenance Insurance [employer] [address] [place] [address] Care Teams Production Assistant Relationship Specialty Start Date End Date Eagle Aguirre PA-C [address] [place] [address] PCP - General FAMILY MEDICINEJAMES 03/31/24
== END 2025-02-27 15:01 | disposition home or self-care (01) ==
LOC: HO.HMCFMS 13:56
PROVIDERS: Visit Provider Student in an Organized Health Care Education/Training Program
DX: I10 Essential (primary) hypertension (principal); E78.2 Mixed hyperlipidemia; I50.20 Unspecified systolic (congestive) heart failure; I25.5 Ischemic cardiomyopathy; E66.811 Obesity, class 1; J45.20 Mild intermittent asthma, uncomplicated

== ENCOUNTER 2025-03-01 08:28 | Outpatient (REF) | payer OTHER, SELFPAY ==
--- OUTSIDE RECORDS SUMMARY | 2025-03-01 08:54 | XMS_ITS | Clinical Summary ---
Author Organization [address] Address [address] [place] [address] Phone Care Team Providers Care Clinical Nurse Leader Name Role Phone Shilo Vasquez MD Primary Care Provider [phone] Surgical History Surgery Date Site/Laterality Comments OTHER SURGICAL HISTORY 1985 PROCEDURE: [place] BRONCHOSCOPY W/TRANSBRONCHIAL LUNG BX 1 LOBE; COMMENT: granuloma Medical History Medical History Date Comments Chronic interstitial lung di sease ([facility] V24, [facility] V28) DX:Chronic interstitial raven g [...] involving left anterior descending (LAD) coronary artery ([facility] V24, [facility] V28) 09/30/2020 DX:ST elevation myocardial i nfarction involving left anterior descending (LAD) coronary artery ([facility]) Family History Medical History Relation [...] type diabetes mellitus with renal manifestations, uncontrolled(250.42) ([facility] V24, [facility] V28) LIPID PANEL WITH REFLEX TO DIRECT LDL Routine 07/17/2024 9:02 AM EDT Coronary atherosclerosis of [place] coronary artery MICROALBUMIN CREATININE URINE RATIO Routine 03/30/2024 11:11 AM EST Hyperlipidemia Essential hypertension, benign Coronary atherosclerosis of [place] coronary artery Heart failure, systolic ([facility] V24, [facility] V28) Referral of patient without examination or treatment COMPREHENSIVE METABOLIC PANEL Routine 03/30/2024 11:05 AM EST Hyperlipidemia Essential hypertension, benign Coronary atherosclerosis of [place] coronary artery Heart failure, systolic ([facility] V24, [facility] V28) Referral of patient without [...] Result [facility] [address] [place] [address], * Lipid panel with reflex to direct [...] t [facility] [address] [place] [address], [place] [phone] * (ABNORMAL) Microalbumin creatinine urine ratio (03/30/2024 [...] ORDERABLE S Final Result Performing Organization Address City/[facility]/ZIP Co de Phone Number [facility] [address] [place] [address], [place] [phone] * (ABNORMAL) Comprehensive metabolic panel (03/30/2024 11:05 AM EST) Sodium 135 133 - 145 mmol/L LAB CHEMISTRY METHOD 03/30/2024 12:12 PM [facility] Potassium 4.2 3.5 - 5.5 mmol/L LAB CHEMISTRY METHOD 03/30/2024 12:12 PM [facility] Chloride 103 96 - 110 mmol/L LAB CHEMISTRY METHOD 03/30/2024 12:12 PM [facility] CO2 27 21 - 32 mmol/L LAB CHEMISTRY METHOD 03/30/2024 12:12 PM [facility] Anion Gap 5 3 - 11 LAB CHEMISTRY METHOD 03/30/2024 12:12 PM [facility] Glucose 361(H) 70 - 100 mg/dL LAB CHEMISTRY METHOD 03/30/2024 12:12 PM [facility] BUN 18 5 - 25 mg/dL LAB CHEMISTRY METHOD 03/30/2024 12:12 PM [facility] Creatinine 1.13 0.70 - 1.30 mg/dL LAB CHEMISTRY METHOD 03/30/2024 12:12 PM [facility] eGFR 74 >=60 mL/min/1. 73m2 LAB CHEMISTRY METHOD 03/30/2024 12:12 PM [facility] Comment:Calculation based on the Chronic Kidney Disease Epidemiology Collaboration (CKD-EPI) equation refit without adjustment for race. BUN/Creatinine Ratio 15.9 LAB CHEMISTRY METHOD 03/30/2024 12:12 PM [facility] Calcium 9.2 8.5 - 10.5 mg/dL LAB CHEMISTRY METHOD 03/30/2024 12:12 PM [facility] AST (SGOT) 22 10 - 42 unit/L LAB CHEMISTRY METHOD 03/30/2024 12:12 PM [facility] ALT (SGPT) 49 10 - 60 unit/L LAB CHEMISTRY METHOD 03/30/2024 12:12 PM EST [facility] Alkaline Phosphatase 69 42 - 121 unit/L LAB CHEMISTRY METHOD 03/30/2024 12:12 PM [facility] Total Protein 7.2 6.0 - 8.0 g/dL LAB CHEMISTRY METHOD 03/30/2024 12:12 PM [facility] Albumin 3.9 3.2 - 5.0 g/dL LAB CHEMISTRY METHOD 03/30/2024 12:12 PM [facility] Total Bilirubin 0.8 0.0 - 1.4 mg/dL LAB CHEMISTRY METHOD 03/30/2024 12:12 PM [facility] Blood Venous blood specimen / Unknown Venipuncture / Unknown 03/30/2024 11:05 AM EST 03/30/2024 11:20 AM EST Susan Mejia NP LAB BLOOD ORDERABLE S Final Result [facility] [address] [place] [address], from Last 3 Months or Most Recently Relevant to Health Maintenance Insurance [facility] Member Subscriber Plan / Payer (Ef fective 2023-Present) Name:Mohsen Pearce Relation to Subscriber:Self Name:Mohsen Pearce Payer ID:[id number] Group ID:[id number] Type:Not on file Address: [facility] [address] [phone] [employer] MED[employer] Member Subscriber Plan / Payer (Ef fective 2023-Present) Name:Mohsen Pearce Relation to Subscriber:Self Name:Mohsen Pearce Payer ID:[id number] Group ID:[id number] Type:Not on file Address: [address] [place] [phone] Care Teams Clinical Nurse Leader Relationship Specialty Start Date End Date Shilo Vasquez MD [address] [place] [address] PCP - General Internal Medicine 08/24/21
--- OUTSIDE RECORDS SUMMARY | 2025-03-01 08:54 | XMS_ITS | Clinical Summary ---
Author Organization [facility] Address [address] [place] [address] Care Team Providers Care Musculoskeletal Physiotherapist Name Role Phone Eagle Aguirre PA-C Primary [...] mouth 2 (two) times daily (Prescribed by [facility] cardiology) 07/28/19 25 Active carvediloL (COREG) 25 mg tabletIndications:He art failure with reduced ejection fraction Take 1 Tablet by mouth 2 (two) times daily (Prescribed by [facility] cardiology) 07/28/19 25 Active blood-glucose meter monitoring [...] failure with reduced ejection fraction Overview (09/17/2021): [facility] Cardiology Dr Torres Hyperlipidemia LDL goal <70 04/21/2021 S/P lobectomy of lung 04/21/2021 Interstitial lung disease 04/21/2021 Overview (04/21/2021): Based on previous chext x-rays done at [facility] NSTEMI (non-ST elevated myocardial infarction) 1 06/22/2020 Type 2 diabetes mellitus with microalbuminuria 0 10/02/2015 Overview (07/27/2024): DM dx: ~[id number] at [facility] Glucometer: Freestyle Lite (issued Freestyle Giorgi 3) Current Diabetes RX: Ozempic 5 mg once weekly every JA-I/ARB: Entresto 49/51 mg twice daily (prescribed by [facility] cardiology) Statin: Atorvastatin 80 mg daily every evening Pneumococcal vaccine: PCV20 (05/26/24) Diabetes foot exam: Never Diabetes retinal exam: 07/29/24 at [facility] No active diabetic retinopathy [...] (11/20/2015): S/p surgery ~1994 per pt at [facility], Not malignant [facility] records show Chr Interstitial Lung Dz in problem list CXR( 11/18/15, [facility]): Stable fibrotic and postoperative changes with no superimposed acute process. Nephrolithiasis 10/02/2015 Overview (10/02/2015): Last episode ~2012, went to [facility] Chronic pain of both shoulders 10/02/2015 Overview (10/02/2015): Pt says that he had calcium deposits. Was following at [facility]. 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, without long-term current use of insulin LIPID PANEL Routine 02/03/2023 11:59 AM EDT Heart failure with reduced ejection fraction (HCC-CMS) Uncontrolled type 2 diabetes mellitus with hyperglycemia (HCC-CMS) Type 2 diabetes mellitus with microalbuminuria, unspecified whether fdc insulin use Dyslipidemia Morbid obesity (HCC-CMS) Hypertriglyceridemia 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, without long-term current use of insulin FECAL GLOBIN BY IMMUNOCHEMISTRY (FIT) Routine 03/06/2022 1:17 PM EST Encounter for colorectal cancer screening MICROALBUMIN/CREATININE RATIO, URINE, RANDOM Routine 01/30/2021 11:22 AM EDT Type 2 diabetes mellitus with microalbuminuria, without long-term current use of insulin ([facility]) from Last 3 Months or Most [...] A1C 11.9(H) <5.7 % of total Hgb [facility] Comment: For someone without known diabetes, a [...] children. MEAN PLASMA GLUCOSE 346 mg/dL (calc) [facility] Blood Blood / Unknown 06/25/2023 2 :14 PM EST 06/25/2023 2:14 PM EST Tien Francisco PharmD LAB - BLOOD D RAW Final Result [facility] [address] [address], [facility] [address] [place] [address] * (ABNORMAL) LIPID PANEL (02/03/2023 11:59 AM EDT) [facility] Signature CHOLESTEROL, TOTAL 186 <200 mg/dL [employer] [facility] HDL CHOLESTEROL 31(L) > OR = 40 mg/dL [employer] [facility] TRIGLYCERIDES 429(H) <150 mg/dL [employer] [facility] Comment: If a non-fasting specimen was collected, consider repeat triglyceride testing on a fasting specimen if clinically indicated. Rachel et al. J. of Clin. Lipidol. 2015;9:129-169. LDL-CHOLESTEROL See Note [employer] [facility] Comment: LDL cholesterol not calculated. Triglyceride levels [...] LDL-C. Nelson SS et al. LIZET. 2013;310(19): 3041-2361 (http://education.ICE Entertainment/faq/GGQ994) CHOL/HDLC RATIO 6.0(H) <5.0 (calc) [employer] [facility] NON-HDL CHOLESTEROL 155(H) <130 mg/dL (calc) [employer] [facility] Comment: For patients with diabetes plus 1 major ASCVD risk factor, treating to a non-HDL-C goal of <100 mg/dL (LDL-C of <70 mg/dL) is considered a therapeutic option. Blood Blood / Unknown 02/03/2023 1 1:59 AM EDT 02/03/2023 11:59 AM EDT Nilo RAMIREZ LAB - BLOOD DRAW Final Result [facility] [address] [address], [employer] [facility] [address] [place] [address] * (ABNORMAL) COMPREHENSIVE METABOLIC PANEL (02/03/2023 11:59 AM EDT) GLUCOSE 383(H) 65 - 99 mg/dL [employer] [facility] Comment: Fasting reference interval For someone without known diabetes, a glucose value >125 mg/dL indicates that they may have diabetes and this should be confirmed with a follow-up test. UREA NITROGEN (BUN) 20 7 - 25 mg/dL [employer] [facility] CREATININE (blood) 1.30 0.70 - 1.30 mg/dL [employer] [facility] EGFR 64 > OR = 60 mL/min/1. 73m2 [employer] [facility] BUN/CREATININE RATIO SEE NOTE: [employer] [facility] Comment: Not Reported: BUN and Creatinine are within reference range. SODIUM 133(L) 135 - 146 mmol/L [employer] [facility] POTASSIUM 4.5 3.5 - 5.3 mmol/L [employer] [facility] CHLORIDE 97(L) 98 - 110 mmol/L [employer] [facility] CARBON DIOXIDE 26 20 - 32 mmol/L [employer] [facility] CALCIUM 8.9 8.6 - 10.3 mg/dL [employer] [facility] PROTEIN, TOTAL 6.9 6.1 - 8.1 g/dL [employer] [facility] ALBUMIN 4.0 3.6 - 5.1 g/dL [employer] [facility] GLOBULIN 2.9 1.9 - 3.7 g/dL (calc) [employer] [facility] ALBUMIN/GLOBULI N RATIO 1.4 1.0 - 2.5 (calc) [employer] [facility] BILIRUBIN, TOTAL 0.8 0.2 - 1.2 mg/dL [employer] [facility] ALKALINE PHOSPHATASE 50 35 - 144 U/L [employer] [facility] AST 16 10 - 35 U/L [employer] [facility] ALT 25 9 - 46 U/L [employer] [facility] Blood Blood / Unknown 02/03/2023 1 1:59 AM EDT 02/03/2023 11:59 AM EDT Nilo RAMIREZ LAB - BLOOD DRAW Edited Result - Final [employer] [address] [address], [employer] [address] [address] * FECAL GLOBIN BY IMMUNOCHEMISTRY (FIT) (03/06/2022 1:17 PM EST) FECAL GLOBIN BY IMMUNOCHEMISTRY See Note [facility] Comment: FECAL GLOBIN BY IMMUNOCHEMISTRY Micro Number: [id number] Test Status: Final Specimen Source: Insure (tm) [...] AMB ULATORY Final Result Performing Organization Address [facility] Co de Phone Number [facility] [address] [address], [employer] [address] [address] * MICROALBUMIN/CREATININE RATIO, URINE, RANDOM (01/30/2021 11:22 AM EDT) CREATININE, RANDOM URINE 91 20 - 320 mg/dL [facility] MICROALBUMIN 2.5 mg/dL t3n [employer] [facility] Comment: Reference Range Not established MICROALBUMIN/CREA TININE RATIO, RANDOM URINE 27 <30 mcg/mg creat [employer] [facility] Comment: The ADA defines abnormalities [...] AMBULATORY Final Resul t Performing Organization Address City/[facility]/ZIP Co de Phone Number [facility] [address] [address], [facility] [address] [address] from Last 3 Months or Most Recently Relevant to Health Maintenance Insurance [employer] [address] [place] [address] Care Teams Musculoskeletal Physiotherapist Relationship Specialty Start Date End Date Eagle Aguirre PA-C [address] [place] [address] PCP - General FAMILY MEDICINEJAMES 03/31/24
[2025-03-01 13:39] LABS: Appearance Urine Turbid; Glucose Urine UA >=1000 mg/dL (Negative); PH 5.0 (5.0-9.0); Specific Gravity - Urine >= 1.030 (1.005-1.025); UMIC TRIGGER UACC YES
[2025-03-01 13:54] LABS: Cholesterol 134 mg/dL (<200); HDL Cholesterol 31 mg/dL (>40); Magnesium 2.1 mg/dL (1.6-2.6); Triglycerides 166 mg/dL (<150)
[2025-03-01 14:03] LABS: Folate 9.6 ng/mL (> or = 4.0); Vitamin B12 447 pg/mL (200-900)
[2025-03-02 07:31] LABS: HBS Num1 2.64 mIU/mL (0-7.99); HBsAGNum1 0.50 S/CO (0.00-0.99); Hepatitis B Surface Antigen Negative (Negative); ~HepC Num1 0.09 S/CO (0.00-0.79); ~Hepatitis B Surface Antibody NONREACTIVE (Nonreactive); ~Hepatitis C Antibody Nonreactive (Nonreactive)
[2025-03-04 19:33] LABS: VITAMIN D (1,25 OH) D3 37 pg/mL; Vit D (1,25-Dihydroxy) Total 37 pg/mL (18-72); Vitamin D (1,25 OH) D2 <8 pg/mL
== END 2025-03-01 08:29 | disposition home or self-care (01) ==
LOC: HO.HKASLDS 08:28
PROVIDERS: PCP Student in an Organized Health Care Education/Training Program; Visit Provider Student in an Organized Health Care Education/Training Program
DX: Z13.6 Encounter for screening for cardiovascular disorders (principal); Z13.29 Encounter for screening for other suspected endocrine disorder; Z13.89 Encounter for screening for other disorder
CPT/HCPCS: 36415; 80061; 81001; 82607; 82652; 82746; 83735; 84443; 86706; 86803; 87340

== ENCOUNTER 2025-03-15 13:18 | Outpatient (AMB) | payer OTHER, SELFPAY ==
--- NOTE | 2025-03-15 13:27 | A.OFFPC_ITS ---
Vital Signs 03/15/25 13:28 Height 5 ft 5 in Weight 203 lb 8 oz BMI 33.9 BP 132/81 Blood Pressure Location Rt brachial Position Sitting Respiration 16 Pulse 96 Pulse Source Pulse Oximeter Temp 98.1 F Temp Source Oral Pulse Oximetry (%) 94 Oxygen Delivery Method Room Air Intake Visit Reasons: 2 wk f/u - Lab review Allergies levaquin Allergy (Severe, Uncoded 01/26/25 08:39) rash Medication List - Last Reconciled 03/15/25 by Tien Fraire MD albuterol sulfate 90 mcg/actuation (Ventolin HFA) 2 puffs inhalation Q4-6H PRN aspirin (Ecotrin Low Strength) 81 mg PO DAILY atorvastatin (Lipitor) 80 mg PO BEDTIME carvedilol 25 mg PO BID cholecalciferol (vitamin D3) 25 mcg PO DAILY dapagliflozin propanediol (Farxiga) 10 mg PO DAILY Entresto 49-51 mg (sacubitril-valsartan) 1 tab PO BID NS ezetimibe 10 mg PO DAILY fenofibrate micronized 134 mg PO DAILY fluticasone propionate 50 mcg/actuation 1 spray intranasal DAILY PRN prednisone 10 mg PO DIRECTED Tobacco use date assessed: 01/26/25 Dental Screening Dental Screen Date: 01/26/25 HPI HPI Comments History of Present Illness Details History of Present Illness The patient is a 60 year old individual presenting with pain on the side of the head with facial swelling, and management of medication side effects including fatigue and blurry vision. Adverse effect of medication: The patient reports developing fatigue, lack of energy, blurry vision, and dizziness since starting Mounjaro. The patient has had two injections, with symptoms starting three to four days after the first shot. Due to these side effects, the patient wishes to discontinue the medication. Headache: The patient reports a one-week history of pain on the side of the head that radiates down the back, which began suddenly. The pain is associated with facial swelling, sinus swelling, and initially began inside the ear. The patient denies associated nausea or vomiting. Type 2 diabetes mellitus: The patient is currently taking Farxiga and recently started Mounjaro. The patient previously could not tolerate Ozempic but is willing to restart it to discontinue Mounjaro and has a supply at home. Hyperlipidemia: The patient is taking Zetia for cholesterol, which was prescribed by a cook restaurant. Recent lab results showed triglycerides at 166 mg/dL, total cholesterol at 134 mg/dL, LDL at 70 mg/dL, and HDL at 31 mg/dL. Medications: - Mounjaro for diabetes mellitus - Farxiga for diabetes mellitus - Zetia for hyperlipidemia - Ozempic for diabetes mellitus, previou sly taken Social History: - Diet: The patient reports having cut o ut sugar and reduced bread intake by half. - Fluid intake: The patient reports wate r consumption has decreased recently. Diagnostic Results: - Lipid Panel: Triglycerides 166 mg/dL, total cholesterol 134 mg/dL, LDL 70 mg/dL, HDL 31 mg/dL. - Vitamin B12: Normal. - Vitamin D: Normal. - Folate: Normal. - Thyroid studies: Normal. - Urinalysis: Normal. - Hepatitis B and C serologies: Negative . Past Medical History - Type 2 diabetes mellitus - Hyperlipidemia - Cardiomyopathy Health Maintenance - Labs reviewed including lipids, vitami n levels, thyroid function, and urinalysis. - Advised on dietary modifications inclu ding reducing sugar and bread intake. - Follow-up scheduled in 3 months for A1 c monitoring. [facility] Medical History (Updated 02/27/25 @ 16:11 by Tien Fraire MD) Type 2 diabetes mellitus not at goal Mild intermittent asthma Heart failure with reduced ejection fraction Lung granuloma Essential hypertension NSTEMI (non-ST elevated myocardial infarction) Interstitial lung disease ST elevation myocardial infarction (STEMI) of anterior wall Ischemic cardiomyopathy CAD (coronary artery disease) Surgical History Status post lobectomy of lung Stented coronary artery Family History Father Heart problem Mother COPD (chronic obstructive pulmonary disease) Social History Housing: Apartment Alcohol intake: never Patient Tobacco Use Status: Former Tobacco user e-Cigarette/Vaping Use: Never Used service: No Current occupational status: retired Current occupational exposures/hazards: No Cognitive needs: No Hearing needs: No Vision needs: Yes Questionnaire Thrive Questionnaire Date Thrive assessed: 11/09/24 I am a: Patient What is your living situation today?: I have a steady place to live Within the past 12 months, did the food you bought not last and you didn't have the money to get more?: Often true Within the past 12 months, did you worry whether your food would run out before you got money to buy more?: Sometimes True Do you have trouble paying for medicines?: No Do you have trouble getting transportation to medical appointments?: No Do you have trouble paying your heating and electricity bill?: No Do you have trouble taking care of your child, family member or friend?: No Do you have trouble with day-to-day activities such as bathing, preparing meals, shopping, managing finances, etc.?: No Are you currently unemployed and looking for a job?: No Are you interested in more education?: No Please select the resources that you would like help with: None Currently or been in a relationship where the following occur: No concerns reported THRIVE Score: 2 DANIEL-7 AMB Questionnaire DANIEL-7 Date DANIEL - 7 assessed: 02/27/25 Source: Developed by Drs. Jin Masters, Swetha Ortega, Cristofer Garrett and colleagues, with an educational mary kate from [employer]. Physical exam (Primary Care) Vital Signs: Last Vital Signs Temp 98.1 F 03/15/25 13:28 Pulse 96 03/15/25 13:28 Resp 16 03/15/25 13:28 BP 132/81 03/15/25 13:28 Pulse Ox 94 03/15/25 13:28 Oxygen Delivery Method Room Air 03/15/25 13:28 BMI result Body Mass Index 33.9 Tobacco/Smoking Status: Tobacco use Status Tobacco use date assessed 01/26/25 03/15/25 13:29 Patient Tobacco Use Status Former Tobacco user 03/15/25 13:29 e-Cigarette/Vaping Use Never Used 03/15/25 13:29 Thrive Assessment: Date of Thrive Assessment Date Thrive assessed 11/09/24 03/15/25 13:29 Currently or been in a relationship where the following occur: No concerns reported Coding Level of Care Code Est Pt Level 3 (32352) Diagnoses Essential hypertension I10 Type 2 diabetes mellitus with hyperglycemia, unspecified whether termite exterminator 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 insulin use E11.65 Diabetes mellitus complication status: with hyperglycemia Diabetes mellitus mcfp insulin use: unspecified mcfp insulin use status Diabetes mellitus type: type 2 Mixed hyperlipidemia E78.2 Hyperlipidemia type: mixed hyperlipidemia Headache R51.9 Assessment & Plan Assessment & Plan (1) Essential hypertension: Code(s): I10 - Essential (primary) hypertension Category: Medical (2) Diabetes: Code(s): E11.9 - Type 2 diabetes mellitus without complications Category: Medical Qualifiers: Diabetes mellitus complication status: with hyperglycemia Diabetes mellitus termite exterminator helper insulin use: unspecified mcfp insulin use status Diabetes mellitus type: type 2 Qualified Code(s): E11.65 - Type 2 diabetes mellitus with hyperglycemia (3) HLD (hyperlipidemia): Code(s): E78.5 - Hyperlipidemia, unspecified Category: Medical Qualifiers: Hyperlipidemia type: mixed hyperlipidemia Qualified Code(s): E78.2 - Mixed hyperlipidemia (4) Headache: Code(s): R51.9 - Headache, unspecified Plan Consent Patient was informed and verbally consented to the use of an ambient scribe for clinic note documentation during this visit. Plan 1. Adverse Effect Of Medication - The patient's symptoms of blurry vision, fatigue, and dizziness are consistent with side effects of Mounjaro. - Discontinue Mounjaro. 2. Type 2 Diabetes Mellitus - Resume Ozempic. - Continue Farxiga. - Follow up in three months for an A1c check. 3. Headache - The pain is suspected to be muscular in origin. - Recommended taking two 325 mg tablets of Tylenol every six to eight hours for pain. - Advised against ibuprofen use to avoid stomach or kidney issues. - Instructed to return if the pain does not resolve after three to five days. 4. Nasal Congestion - Recommend increasing water intake and using Vitamin C, as symptoms may be viral. Discussion Notes I reviewed the patient's symptoms of blurry vision, fatigue, and dizziness, which I explained are known side effects of Mounjaro. We agreed to discontinue Mounjaro and resume Ozempic, which the patient has at home, and continue with Farxiga for diabetes management. Regarding the head and facial pain, I explained that the examination did not reveal an ear infection and that the pain is likely muscular. I recommended Tylenol for pain management and advised against ibuprofen to protect the patient's stomach and kidneys. I instructed the patient to return if the pain does not improve. I also advised increased water intake and vitamin C for the nasal congestion. We reviewed the recent lab results, which show good overall health, including negative hepatitis screening and stable kidney function, though we noted the HDL is slightly low and triglycerides are borderline high. A follow-up visit is scheduled in three months to check the patient's A1c. Patient Instructions - Stop taking Mounjaro. - You can restart taking Ozempic, since you have it at home. - Continue taking Farxiga. - For the pain on the side of your head, take two 325 mg tablets of Tylenol every 6 to 8 hours as needed. - Do not take ibuprofen for the pain. - Drink plenty of water and take Vitamin C to help with your congestion. - Please come back to the clinic if the head pain does not go away in a few days. - We will need to check your A1c lab test in three months. Medical Decision Making The patient is a 60 year old individual presenting with new symptoms of fatigue, blurry vision, and dizziness, which correspond with the initiation of Mounjaro. Given the temporal association and the known side effect profile of this medication class, the symptoms are most likely an adverse drug reaction. The appropriate course of action is to discontinue Mounjaro and revert to the patient's previous regimen of Ozempic, in addition to continuing Farxiga, to maintain glycemic control. The patient also complains of unilateral head pain with tenderness, which began a week ago. Physical exam of the ear was unremarkable, ruling out an otologic cause. The pain's character and localized tenderness suggest a musculoskeletal or tension-type headache, for which a trial of acetaminophen is a safe and appropriate first-line treatment. Ibuprofen was avoided to prevent potential renal or gastric complications. Review of recent labs shows well-controlled lipids on Zetia, although HDL is low and triglycerides are borderline high, warranting continued lifestyle counseling. Other metabolic and hematologic parameters are normal. The plan includes symptomatic management, medication adjustment, and a follow-up in three months to assess A1c on the modified diabetes regimen. Total Time Statement 20min Total time spent caring for the patient today includes pre-visit chart review, documentation, review of laboratory and diagnostic imaging results, medication reconciliation, medically necessary evaluation, counseling on diagnoses, care coordination, ordering appropriate tests and medications, review of tests performed by other providers, reporting test results to the patient, and communication with other healthcare providers. Medications: Refilled ezetimibe 10 mg PO DAILY 30 tabs 5RF I25.5 - Ischemic cardiomyopathy Discontinued tirzepatide (Mounjaro) for 4 weeks Discontinued Reason: Doctor's Order 2.5 mg (0.5 mL) subcut QWEEK 2 mL 0RF E11.9 - Type 2 diabetes mellitus without complications, E66.811 - Obesity, class 1
[2025-03-15 13:28] VITALS: BP 132/81; PULSE 96; RESP 16; TEMP 36.7; O2SAT 94; BMI 33.9
== END 2025-03-15 14:01 | disposition home or self-care (01) ==
LOC: HO.HMCFMS 13:19
PROVIDERS: Visit Provider Student in an Organized Health Care Education/Training Program
DX: I10 Essential (primary) hypertension (principal); E11.65 Type 2 diabetes mellitus with hyperglycemia; E78.2 Mixed hyperlipidemia; R51.9 Headache, unspecified

== ENCOUNTER → 2025-03-15 13:18 | Outpatient (BNVA) | payer OTHER, SELFPAY | PROVIDERS: Visit Provider Student in an Organized Health Care Education/Training Program | DX: E11.65 Type 2 diabetes mellitus with hyperglycemia (principal); Z79.85 Long-term (current) use of injectable non-insulin antidiabetic drugs; I10 Essential (primary) hypertension; E78.2 Mixed hyperlipidemia; R51.9 Headache, unspecified; R09.81 Nasal congestion; R53.83 Other fatigue; R42 Dizziness and giddiness; H53.8 Other visual disturbances | CPT/HCPCS: 99212 ==

== ENCOUNTER 2025-04-16 10:41 | Outpatient (REF) | payer OTHER, SELFPAY ==
--- NOTE | ~2025-04-16 | XR_ITS ---
EXAMINATION: XR CHEST CLINICAL INFORMATION: R05.9 - Cough, unspecified COMPARISON: None available. TECHNIQUE: 2 views of the chest were obtained. FINDINGS: The cardiomediastinal silhouette is within normal limits. The lungs are well expanded. Peribronchial hazy opacities in the right lower lung can be seen with inflammatory or infectious process. There is no focal dense consolidation, edema, or effusion. No pneumothorax. Metallic clips seen in the right lower lung. No acute osseous abnormality. Thoracic spine spondylosis XR/XR chest 2V IMPRESSION: Peribronchial hazy opacities in the right lower lung can be seen with inflammatory/infectious process. Electronically signed by: Brandon Henry MD 04/16/2025 12:13 PM [facility]
== END 2025-04-16 10:42 | disposition home or self-care (01) ==
LOC: HO.HMGCX 10:41
PROVIDERS: PCP Student in an Organized Health Care Education/Training Program; Visit Provider Family Medicine
DX: J18.9 Pneumonia, unspecified organism (principal); J32.9 Chronic sinusitis, unspecified; R09.82 Postnasal drip; R06.02 Shortness of breath; R05.9 Cough, unspecified; R09.89 Other specified symptoms and signs involving the circulatory and respiratory systems
CPT/HCPCS: 71046; 99212

== ENCOUNTER 2025-04-16 10:41 | Outpatient (AMB) | payer OTHER, SELFPAY ==
[2025-04-16 11:04] VITALS: BP 125/70; PULSE 100; RESP 16; TEMP 36.6; O2SAT 96; BMI 34.1
--- NOTE | 2025-04-16 11:04 | AM.OFFWIN_ITS ---
Intake Vital Signs 04/16/25 11:04 Height 5 ft 5 in Weight 205 lb BMI 34.1 BP 125/70 Blood Pressure Location Lt brachial Position Sitting Respiration 16 Pulse 100 Pulse Source Pulse Oximeter Temp 97.9 F Temp Source Oral Pulse Oximetry (%) 96 Oxygen Delivery Method Room Air Intake Visit Reasons: EP- SOB, Sore Throat Intake Note: EP has sore throat, ears are ringing on and off, difficulty in breathing and chest congestion for around a month. Patient Tobacco Use Status: Former Tobacco user Allergies levaquin Allergy (Severe, Uncoded 04/16/25 11:12) rash Do you need a note to return to daycare/school/sports/work: No HPI HPI Comments History of Present Illness Details History of Present Illness The patient is a 60 year old male with a past medical history of hypertension, type 2 diabetes mellitus, HFrEF, coronary artery disease, mild intermittent asthma, presenting with head congestion, sinus pain, cough, and shortness of breath. - The patient reports symptoms developed slowly over the past month. - He complains of head congestion and pa in in both cheeks, which previously occurred in late November or December. - He experiences nasal drainage that wor sens at night - He reports feeling a low-grade fever b ut has not checked his temperature. - He has a productive cough with yellow sputum, particularly in the morning, and pressure along his sinuses. - The patient has a history of asthma an d uses a daily maintenance inhaler and an albuterol rescue inhaler. - He reports increased use of his albute rol rescue inhaler to about every other day, primarily in the mornings. - He experiences shortness of breath, wh ich he attributes to congestion, and feels a rumbling sensation in his lungs upon waking. - The patient complains of right back pa in located at the base of his lung upon waking - He experiences intermittent tinnitus a nd a popping sensation in his ears, particularly with changes in air temperature. - He reports a significant lack of energ y and fatigue - He denies any edema or swelling in the legs Review of Systems - General: Reports feeling a low-grade f ever, though unmeasured, and fatigue. - HEENT: Reports head congestion, maxill analilia sinus pain, nasal drainage, sinus pressure, and intermittent tinnitus with a popping sensation in the ears. He denies ear pain. - Respiratory: Reports a cough productiv e of yellow sputum, shortness of breath attributed to congestion, and a rumbling sensation in the lungs in the morning. Denies dyspnea at baseline. - Cardiovascular: Denies chest pain or l eg swelling. - Gastrointestinal: Negative for abdomin al pain, nausea, vomiting, diarrhea - Musculoskeletal: Reports right back pa in. Physical Exam General Appearance: Normal appearance, well developed. No acute distress. ENT: External ears and ear canals WNL. Middle ear effusions present bilaterally. TM without erythema or bulging. Nasal congestion present with clear nasal drainage. Oropharynx clear without erythema or exudate. Head: Normocephalic, atraumatic. Pulmonary: No respiratory distress. Speaking in full sentences. Clear to auscultation bilaterally. No crackles or wheezing noted. Cardiac: Regular rate and rhythm. No murmurs. Musculoskeletal: Moving all extremities spontaneously and against gravity. No pitting edema noted in lower extremities. Mental Status: Alert and Oriented x 3 Psychiatric: Normal mood. Normal affect. REPLACED BY [facility] Medical History (Updated 02/27/25 @ 16:11 by Tien Fraire MD) Type 2 diabetes mellitus not at goal Mild intermittent asthma Heart failure with reduced ejection fraction Lung granuloma Essential hypertension NSTEMI (non-ST elevated myocardial infarction) Interstitial lung disease ST elevation myocardial infarction (STEMI) of anterior wall Ischemic cardiomyopathy CAD (coronary artery disease) Surgical History Status post lobectomy of lung Stented coronary artery Family History Father Heart problem Mother COPD (chronic obstructive pulmonary disease) Social History Housing: Apartment Alcohol intake: never Patient Tobacco Use Status: Former Tobacco user e-Cigarette/Vaping Use: Never Used service: No Current occupational status: retired Current occupational exposures/hazards: No Cognitive needs: No Hearing needs: No Vision needs: Yes Physical Exam Vital Signs: Last Vital Signs Temp 97.9 F 04/16/25 11:04 Pulse 100 04/16/25 11:04 Resp 16 04/16/25 11:04 BP 125/70 04/16/25 11:04 Pulse Ox 96 04/16/25 11:04 Oxygen Delivery Method Room Air 04/16/25 11:04 BMI result Body Mass Index 34.1 Assessment & Plan Assessment & Plan (1) Recurrent sinusitis: Code(s): J32.9 - Chronic sinusitis, unspecified (2) Right lower lobe pneumonia: Code(s): J18.9 - Pneumonia, unspecified organism Qualifiers: Pneumonia type: due to unspecified organism Qualified Code(s): J18.9 - Pneumonia, unspecified organism Plan - The patient's presentation with head congestion, sinus pain, facial pressure, and post-nasal drip is concerning for a recurrent sinus infection as symptoms have been ongoing for > 1 month - Patient also reports intermittent shortness of breath with a known history of asthma. A chest xray was performed which showed peribronchial hazy opacities in the right lower lung, consistent with where patient has been having occasional back pain. No focal consolidation present. - Will treat patient with Augmentin and azithromycin. Discussed proper administration and potential side effects of medications. Reviewed recent renal function from 01/02/25 and EKG from 01/02/25. - Advised to use rescue inhaler as needed for any wheezing or shortness of breath. - Recommended to seek medical attention if worsening symptoms, new fevers, worsening shortness of breath, chest pain. - Discussed follow up with PCP in about 6 weeks for repeat imaging. Patient was informed and verbally consented to the use of an ambient scribe for clinic note documentation during the visit. Orders: Orders XR chest 2V 04/16/25 R05.9 - Cough, unspecified Coding Level of Care Code Est Pt Level 4 (90767) Diagnoses Recurrent sinusitis J32.9 Pneumonia of right lower lobe due to infectious organism J18.9 Pneumonia type: due to unspecified organism
--- OUTSIDE RECORDS SUMMARY | 2025-04-16 13:13 | XMS_ITS | Clinical Summary ---
Author Organization [address] Address [address] [place] [address] Phone Care Team Providers Care Oracle Database Architect Name Role Phone Shilo Vasquez MD Primary Care Provider [phone] Surgical History Surgery Date Site/Laterality Comments OTHER SURGICAL HISTORY 1985 PROCEDURE: TX BRONCHOSCOPY W/TRANSBRONCHIAL LUNG BX 1 LOBE; COMMENT: granuloma Medical History Medical History Date Comments Chronic interstitial lung di sease ([facility] V24, [facility] V28) DX:Chronic interstitial raven g disease (HCC); [...] involving left anterior descending (LAD) coronary artery ([facility] V24, [facility] V28) 09/30/2020 DX:ST elevation myocardial i nfarction involving left anterior descending (LAD) coronary artery ([facility]) Family History Medical History Relation Name Comments [...] Years Used Date Smoking Tobacco: Former Cigarettes 0 Q uit: 04/25/1983 Smokeless Tobacco: Never Alcohol Use Standard Drinks/Week Comments Not Currently 0 (1 standard drink = 0.6 oz pur e alcohol) Sex and Gender Information Value Date Recorded Sex Assigned at Male 07/15/2024 11:24 AM EDT Legal Sex Male 3:21 PM EST Gender Identity Male 07/15/2024 11:24 AM EDT Sexual Orientation Choose not to disclose 2024 11:24 AM EDT Last Filed Vital Signs Vital Sign Reading [...] Health Maintenance Due Date Last Done Comments Colorectal Cancer Screening: Colonoscopy 1964 Diabetes: Annual Foot Exam 02/05/1974 Diabetes: Annual Retina Eye Exam 02/05/1974 RSV Immunization Adult Patients (1 - Risk 50-74 years 1-dose series) 02/05/2014 HIV Screening 04/04/2022 Hepatitis C Screening 04/04/2022 Medicare Annual Wellness Visit 04/04/2022 Social Influencers of Health Screening 04/04/2022 Depression Screening 04/26/2024 COVID-19 Vaccine ( season) [...] 07/17/2029 07/17/2024, 03/30/2024, 02/03/2023, Additional history exists Colorectal Cancer Screening: Stool Based Tests (FOBT/FIT) Discontinued 03/06/2022 Zoster Vaccines Completed 07/23/2022, 03/02/2022 Pneumococcal Vaccine: [...] type diabetes mellitus with renal manifestations, uncontrolled(250.42) ([facility] V24, [facility] V28) LIPID PANEL WITH REFLEX TO DIRECT LDL Routine 07/17/2024 9:02 AM EDT Coronary atherosclerosis of ambler coronary artery MICROALBUMIN CREATININE URINE RATIO Routine 03/30/2024 11:11 AM EST Hyperlipidemia Essential hypertension, benign Coronary atherosclerosis of ambler coronary artery Heart failure, systolic (CMS/HCC V24, [facility] V28) Referral of patient without examination or treatment COMPREHENSIVE METABOLIC PANEL Routine 03/30/2024 11:05 AM EST Hyperlipidemia Essential hypertension, benign Coronary atherosclerosis of ambler coronary artery Heart failure, systolic ([facility] V24, [facility] V28) Referral of patient without examination or treatment from Last 3 Months or Most Recently Relevant to Health Maintenance Results * (ABNORMAL) Hemoglobin A1c (07/27/2024 10:12 AM EDT) Pathologist [facility] Hemoglobin A1C 9.6(H) <6.5 % LAB CHEMISTRY METHOD 07/27/2024 2:20 PM EDT [facility] Mean Bld Glu Estim. 229 mg/dL LAB CHEMISTRY METHOD 07/27/2024 2:20 PM EDT [facility] Blood Venous blood specimen / Unknown Venipuncture / Unknown 07/27/2024 10:12 AM EDT 07/27/2024 10:22 AM EDT us Rajendra Eaton PharmD LAB BLOOD ORDERABLES Lesly l Result [facility] [address] [place] [address], * Lipid panel with reflex to direct LDL (07/17/2024 9:02 AM EDT) Cholesterol 156 0 - 200 mg/dL LAB CHEMISTRY METHOD 07/17/2024 12:44 PM EDT [facility] Triglycerides 134 0 - 150 mg/dL LAB CHEMISTRY METHOD 07/17/2024 12:44 PM EDT [facility] HDL 41 >=40 mg/dL LAB CHEMISTRY METHOD 07/17/2024 12:44 PM EDT [facility] LDL Calculated 88 0 - 100 mg/dL LAB CHEMISTRY METHOD 07/17/2024 12:44 PM EDT [facility] VLDL Cholesterol Norbert 26.8 mg/dL LAB CHEMISTRY METHOD 07/17/2024 12:44 PM EDT [facility] Non HDL Chol. (LDL+VLDL) 115 <145 mg/dL LAB CHEMISTRY METHOD 07/17/2024 12:44 PM EDT [facility] Chol/HDL Ratio 3.8 0.0 - 4.4 LAB CHEMISTRY METHOD 07/17/2024 12:44 PM EDT [facility] Blood Venous blood specimen / Unknown Venipuncture / Unknown 07/17/2024 9:02 AM EDT 07/17/2024 10:47 AM EDT Jay Sams MD LAB BLOOD ORDERABLES Final Resul t Performing Organization Address [facility]/ZIP Co de Phone Number [facility] [address] [place] [address], [place] [phone] * (ABNORMAL) Microalbumin creatinine urine ratio (03/30/2024 11:11 AM EST) Creatinine, Urine 55.0 mg/dL LAB CHEMISTRY METHOD 03/30/2024 12:19 PM EST [facility] Microalb, Ur 21.5 0.0 - 29.0 mg/L LAB CHEMISTRY METHOD 03/30/2024 12:19 PM EST [facility] Microalb/Creat Ratio 39(H) <30 mg/g creat LAB CHEMISTRY METHOD 03/30/2024 12:19 PM EST [facility] Urine Urine specimen obtained by clean catch procedure / Unknown Non-blood Collection / Unknown 03/30/2024 11:11 AM EST 03/30/2024 11:19 AM EST Susan Mejia NP LAB URINE ORDERABLE S Final Result Performing Organization Address City/[facility]/ZIP Co de Phone Number [facility] [address] [place] [address], [place] [phone] * (ABNORMAL) Comprehensive metabolic panel (03/30/2024 11:05 [...] LAB CHEMISTRY METHOD 03/30/2024 12:12 PM EST [facility] Alkaline Phosphatase 69 42 - 121 unit/L LAB CHEMISTRY METHOD 03/30/2024 12:12 PM EST [facility] Total Protein 7.2 6.0 - 8.0 g/dL LAB CHEMISTRY METHOD 03/30/2024 12:12 PM EST [facility] Albumin 3.9 3.2 - 5.0 g/dL LAB CHEMISTRY METHOD 03/30/2024 12:12 PM [facility] Total Bilirubin 0.8 0.0 - 1.4 mg/dL LAB CHEMISTRY METHOD 03/30/2024 12:12 PM [facility] Blood Venous blood specimen / Unknown Venipuncture / Unknown 03/30/2024 11:05 AM EST 03/30/2024 11:20 AM EST us Susan Mejia NP LAB BLOOD ORDERABLE S Final Result [facility] [address] [place] [address], from Last 3 Months or Most Recently Relevant to Health Maintenance Insurance [facility] Member Subscriber Plan / Payer (Ef fective 2023-Present) Name:Mohsen Pearce Relation to Subscriber:Self Name:Mohsen Pearce Payer ID:[id number] Group ID:[id number] Type:Not on file Address: [place] [address] [place] [id number] [facility] MEDICARE Member Subscriber Plan / Payer (Ef fective 2023-Present) Name:Mohsen Pearce Relation to Subscriber:Self Name:Mohsen Pearce Payer ID:[id number] Group ID:[id number] Type:Not on file Address: [address] [place] [phone] Care Teams Oracle Database Architect Relationship Specialty Start Date End Date Shilo Vasquez MD [address] [place] [address] PCP - General Internal Medicine 08/24/21
== END 2025-04-16 11:31 | disposition home or self-care (01) ==
PROVIDERS: Visit Provider Family Medicine
DX: J32.9 Chronic sinusitis, unspecified (principal); J18.9 Pneumonia, unspecified organism

== ENCOUNTER → 2025-04-16 12:01 | Outpatient (BNV) | payer OTHER, SELFPAY | PROVIDERS: PCP Student in an Organized Health Care Education/Training Program; Visit Provider Radiology Diagnostic Ultrasound | DX: R05.9 Cough, unspecified (principal) | CPT/HCPCS: 71046 ==